=== PATIENT | male | born 1950 | race Caucasian/White ===

== ENCOUNTER 2018-06-18 17:54 | Emergency (ER) | payer MEDICARE, OTHER, SELFPAY ==
[2018-06-18 17:55] VITALS: BP 139/75; PULSE 54; RESP 16; TEMP 37.2; O2SAT 100; BMI 32.3
--- NOTE | 2018-06-18 18:37 | ED.VISSUMM ---
- ER Visit Summary Date of Service: 06/18/18 Chief Complaint: I do not want the flu . History of Present Illness: The patient is a 68 M who presents with symptoms that started 12 hours ago and include nasal congestion, mild frontal discomfort and mild cough. He denies fever, sore throat, myalgias arthralgias. He has no GI symptoms. He is a former smoker. 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 He has absolutely no other complaints. Physical Examination: Vital signs noted. Is afebrile. Is not hypoxic. Does not appear ill. HEENT exam is marked for mild nasal congestion. Otherwise the HEENT exam is unremarkable. Heart is regular without murmur, gallop or rub. Lungs are clear to auscultation. Is good move air bilaterally. Test Results: None were obtained Emergency Department Course and Treatment: Education Treatment Plan: Symptomatic Disposition: Discharged home with spouse Impression: Acute viral upper respiratory infection This note was generated with [employer] dictation software. It may contain incorrect words, spelling, and punctuation that were not noted in review of the chart prior to signing ED Disposition - Plan for ED Patient: Disposition: Home or Assisted Living Instructions: ED Upper Resp Infec No Abx Tx Referrals: Josse Abrams MD [Primary Care Provider] - 10-14 Days if not better
--- NOTE | 2018-06-18 18:40 | ED.DCSUM_ITS ---
- ER Visit Summary Date of Service: 06/18/18 Chief Complaint: I do not want the flu . History of Present Illness: The patient is a 68 M who presents with symptoms that started 12 hours ago and include nasal congestion, mild frontal discomfort and mild cough. He denies fever, sore throat, myalgias arthralgias. He has no GI symptoms. He is a former smoker. 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 He has absolutely no other complaints. Physical Examination: Vital signs noted. Is afebrile. Is not hypoxic. Does not appear ill. HEENT exam is marked for mild nasal congestion. Otherwise the HEENT exam is unremarkable. Heart is regular without murmur, gallop or rub. Lungs are clear to auscultation. Is good move air bilaterally. Test Results: None were obtained Emergency Department Course and Treatment: Education Treatment Plan: Symptomatic Disposition: Discharged home with spouse Impression: Acute viral upper respiratory infection This note was generated with [employer] dictation software. It may contain incorrect words, spelling, and punctuation that were not noted in review of the chart prior to signing ED Disposition - Plan for ED Patient: Disposition: Home or Assisted Living Instructions: ED Upper Resp Infec No Abx Tx Referrals: Josse Abrams MD [Primary Care Provider] - 10-14 Days if not better
== END 2018-06-18 18:55 | disposition home or self-care (01) ==
LOC: ED 18:48
PROVIDERS: Emergency Provider Emergency Medicine; Family Provider Family Medicine; PCP Family Medicine
DX: J06.9 Acute upper respiratory infection, unspecified (principal); Z87.891 Personal history of nicotine dependence; K74.60 Unspecified cirrhosis of liver
CPT/HCPCS: 99282

== ENCOUNTER 2018-10-17 13:45 | Emergency (ER) | payer MEDICARE, OTHER, SELFPAY ==
[2018-10-17 13:45] VITALS: BP 140/70; PULSE 56; RESP 16; TEMP 36.6; O2SAT 99; BMI 32.6
--- NOTE | 2018-10-17 14:09 | ED.DCSUM_ITS ---
- ER Visit Summary Date of Service: 10/17/18 Chief Complaint: Dysuria History of Present Illness: The patient is a 68 M who presents with dysuria that is been getting worse over the past 3 days. Patient states his urine has been cloudy and malodorous. Patient states he does have some burning with urination. Patient denies any fevers or chills. Patient denies any nausea or vomiting. Patient denies any back pain or flank pain. Patient states he does have a history of prior urinary tract infection and states this feels similar to that. Physical Examination: Vital signs are stable. Patient is afebrile. Patient is in no acute distress. Oral mucosa is pink and moist. Neck is supple. Trachea is midline. There is no JVD noted. Heart was regular rate and rhythm. Lungs are clear and equal bilaterally. Abdomen is soft. Bowel sounds are normal. There is no tenderness. There is no guarding. Cranial nerves II through XII are intact. There are no focal motor or sensory deficits noted. Test Results: Urinalysis was obtained. Leukocyte esterase was 500, occult blood with 50, white blood cell count was greater than 100, and there was 3+ bacteria. Emergency Department Course and Treatment: Patient states Cipro has worked well for him in the past. Patient was given a dose of Cipro here. Patient was given a prescription for Cipro. Patient was instructed to follow-up with his primary care physician in 5 to 7 days. Patient patient understood and was agreeable with the plan. All questions were answered. Disposition: Discharge home Impression: Urinary tract infection This note was generated with [employer] dictation software. It may contain incorrect words, spelling, and punctuation that were not noted in review of the chart prior to signing ED Disposition - Plan for ED Patient: Disposition: Home or Assisted Living Diagnosis: Urinary tract infection Instructions: Bladder Infection, Male (Adult) Prescriptions: Ciprofloxacin [Cipro] 500 mg PO BID #14 tab Prescription Printed Referrals: Josse Abrams MD [Primary Care Provider] - 5-7 Days
[2018-10-17 14:39] LABS: Mucous, Urine 0 SEEN /hpf (<or=2+); Red Blood Cells-Urine 0 SEEN /hpf (0-5)
[2018-10-17 14:41] LABS: Color, Urine Yellow (Yellow); Glucose, Dipstick Normal (Normal); Ketone-Dipstick Negative (Negative); Leukocyte Esterase-Dipstick 500 /ul (Negative); Nitrite-Dipstick Negative (Negative); Occult Blood-Urine 50 /ul (Negative); Protein-Dipstick 30 mg/dl (Negative); Urine Bilirubin Dipstick Negative (Negative); Urine Clarity Cloudy (Clear); Urine Urobilinogen Normal (Normal)
[2018-10-17 14:54] LABS: White Blood Cells >100 SEEN /hpf (0-5)
[2018-10-17 14:55] LABS: Bacteria 3+ /hpf (None Seen); Squamous Epithelial Cells - UA 0-5 SEEN /hpf (0-5)
[2018-10-17] MEDS: Ciprofloxacin 250 MG Tablet 500 MG PO (16:54)
[2018-10-17 16:56] VITALS: BP 147/73; PULSE 63; RESP 18; O2SAT 97
== END 2018-10-17 16:56 | disposition home or self-care (01) ==
PROVIDERS: Emergency Provider Emergency Medicine; Family Provider Family Medicine; PCP Family Medicine
DX: N39.0 Urinary tract infection, site not specified (principal); I25.10 Atherosclerotic heart disease of native coronary artery without angina pectoris; I10 Essential (primary) hypertension; E78.00 Pure hypercholesterolemia, unspecified; E11.9 Type 2 diabetes mellitus without complications; K21.9 Gastro-esophageal reflux disease without esophagitis
CPT/HCPCS: 81001; 99283

== ENCOUNTER → 2019-10-14 08:01 | Outpatient (CLI) | payer MEDICARE, OTHER, SELFPAY ==
--- NOTE | 2019-10-14 08:08 | US_ITS ---
STUDY: ABDOMINAL ULTRASOUND - RIGHT UPPER QUADRANT REASON FOR VISIT: Male, 69 years old cirrhosis elevated LFTs TECHNIQUE: Ultrasound evaluation of the right upper quadrant was performed with real-time and static alas-scale imaging. TECHNICAL QUALITY: Limited. Examination limited by bowel gas. COMPARISON: None. FINDINGS: Liver: The liver measures 11.7 cm. There is increased echogenicity consistent with fatty infiltration. The bile ducts are within normal limits. There is hepatic color flow. The direction of portal flow is hepatopetal. There is no demonstrated mass lesion. Gallbladder: Normal distended gallbladder. The gallbladder wall measures 2.8 mm. There is a negative sonographic Greenfield''s sign. There is no pericholecystic fluid. There are no gallstones. Common Bile Duct (C.B.D.): The common bile duct measures 2.4 mm. Pancreas: Normal size of the head, body and tail of the pancreas. There is normal echogenicity of the pancreas. There is no demonstrated pancreatic mass or cyst. Right Kidney: Normal size of the right kidney. The right kidney measures 9.9 x 4.5 x 5.0 cm. Normal renal cortex. The right cortex measures 1.3 cm. There is no demonstrated renal mass or cyst. There is mild hydronephrosis of the right kidney of uncertain etiology. US/Abdomen Limited IMPRESSION: Diffuse fatty infiltration of the liver, no discrete lesion Mild right hydronephrosis of uncertain etiology. No demonstrated obstructing stone or mass. Electronically Signed: Myron Cruz MD at 9:09 EDT , Service support ,
[2019-10-14 08:39] LABS: Absolute Lymphocyte Count 0.69 X10^3/uL (0.83-4.51); Absolute Neutrophil Count 1.5 X10^3/uL (2.0-7.7); Basophil# 0.03 X10^3/uL; Basophil% 1.1 % (0-1); Eosinophil# 0.18 X10^3/uL; Eosinophils% 6.7 % (0-5); Hemoglobin 7.5 g/dL (13.0-16.5); Lymphocyte # 0.69 X10^3/ul (4.0); Lymphocyte % 25.8 % (19-41); Mean Corp Hgb Conc 27.8 g/dL (32-36); Mean Corpuscular Hgb 18.3 pg (27.0-32.0); Monocyte# 0.27 X10^3/uL; Monocyte% 10.1 % (0-10); NRBC Flagged by Analyzer 0 % (0-5); Neutrophil # 1.49 X10^3/uL (2.7-7.7); Neutrophil % 55.9 % (47-70); POSITIVE COUNT YES; POSITIVE MORPHOLOGY YES; RBC Distribution Width CV 21.8 % (11.6-14.6); RBC Distribution Width SD 49.8 fl (35.1-43.9); Red Blood Count 4.09 M/mm3 (4.6-6.2); White Blood Count 2.7 K/mm3 (4.4-11.0)
[2019-10-14 08:58] LABS: AST(SGOT) 51 U/L (15-37); Alanine Aminotransfer ALT/SGPT 36 U/L (16-61); Albumin, Serum 2.8 g/dL (3.2-5.0); Alkaline Phosphatase 95 U/L (45-117); Anion Gap 7 (5-15); BUN 14 mg/dL (7-18); BUN/Creat Ratio 12.7 RATIO (10-20); Bilirubin, Direct 0.71 mg/dL (0.00-0.30); Calcium,Total 8.3 mg/dL (8.5-10.1); Chloride 102 mmol/L (98-107); Differential Indicated SCAN CRITERIA MET; EST Glomerular Filtration Rate 71 mL/min (>60); Est Glom Filt Rate - Afr Amer 85 mL/min (>60); Glucose 114 mg/dL (74-106); Potassium 4.2 mmol/L (3.5-5.1); Protein, Total 5.8 g/dL (6.4-8.2); Sodium Level 134 mmol/L (136-145)
[2019-10-14 09:01] LABS: International Normalized Ratio 1.5; Prothrombin Time (Protime)PT. 17.7 SECONDS (11.7-14.9)
[2019-10-14 09:09] LABS: Platelet Count 47 K/mm3 (150-450)
[2019-10-14 09:30] LABS: Anisocytosis 3+; Hypochromasia 3+; Ovalocyte 1+; Platelet Estimate MOD DEC (ADEQ)
[2019-10-15 06:19] LABS: AFP, Tumor Marker 3.2 ng/mL (0.0-8.3)
[2019-10-15 12:52] LABS: Pathologist Review Reviewed
== END ==
PROVIDERS: PCP Family Medicine
DX: K70.30 Alcoholic cirrhosis of liver without ascites (principal)
CPT/HCPCS: 36415; 76705; 80048; 80076; 82105; 85025; 85610

== ENCOUNTER 2020-01-24 18:31 | Emergency (ER) | payer MEDICARE, OTHER, SELFPAY ==
[2020-01-24 18:32] VITALS: BP 124/67; PULSE 60; RESP 17; TEMP 36.4; O2SAT 100; BMI 23.1
--- NOTE | 2020-01-24 18:59 | ED.VIS.GEN ---
History of Present Illness Chief Complaint: Confusion Informant: Patient Onset: Yesterday Context: Sudden Onset Timing: Continuous Quality: Confusion and slow mentation per Location: Not applicable Current Severity: Mild Maximum Severity: Mild Worsened by: Nothing Relieved by: Nothing Associated Symptoms: No associated symptoms Prior similar symptoms: No Recent Illness/Hospitalization: No - Past Medical History (1) Liver cirrhosis Status: Chronic (2) Thrombocytopenia Status: Chronic Past Medical History - Allergies and Home Meds Allergies/Adverse Reactions: Allergies mushroom Allergy (Verified 01/24/20 18:32) Unknown nabumetone [From Relafen] Allergy (Verified 01/24/20 18:32) Other naproxen [From Naprosyn] Allergy (Verified 01/24/20 18:32) Other Primary Care Physician: Josse Abrams MD [Primary Care Provider] - Prior records reviewed: Yes - Patient has history of cirrhosis Surgical History: noncontributory Lives: Spouse/ Significant Other Smoking Status: Former smoker Alcohol: None Drugs: None - Family History Maternal Family History: Reports: No pertinent history Paternal Family History: Reports: No pertinent history Review of Systems General: Denies: Chills, Fever, Sweats Eyes: Denies: Visual changes - bilaterally, Diplopia ENT: Denies: Rhinorrhea, Sore throat Cardiovascular: Denies: Chest pain, Palpitations Respiratory: Denies: Dyspnea, Cough, Dyspnea on exertion Gastrointestinal: Denies: Abdominal pain, Nausea, Vomiting, Diarrhea, Melena, Hematochezia Genitourinary: Denies: Dysuria, Hematuria, Frequency Musculoskeletal: Denies: Myalgias, Arthralgias, Neck pain, Back pain, Swelling, Extremity Pain Skin: Denies: Rash, Wounds Neurological: Denies: Headache, Weakness, Numbness Psych: Denies: Depression, Anxiety Hematologic: Denies: Easy bruising, Easy bleeding Allergy: Denies: Uticaria, Swelling of the mouth Physical Exam Vital Signs/Narrative: Vital Signs Temp Pulse Resp BP Pulse Ox 01/24/20 18:32 97.6 F L 60 17 124/67 H 100 Inital Vital Signs reviewed: Yes General: Well nourished, Well developed, No Acute Distress Head: Normocephalic, Atraumatic Eyes: Perrl, EOMI. Negative for: Pale conjunctiva, Scleral icterus ENT: No rhinorrhea, TM's clear Neck: Supple, Nontender Cardiovascular: Regular rate, Regular rhythm, No murmurs Respiratory: No distress, CTA bilaterally, Chest nontender Abdomen: Soft, Nontender, Nondistended, Normal bowel sounds Back: Nontender, Normal Inspection. Negative for: CVA tenderness Extremities: Nontender, No edema Skin: Normal color, No rash, No Trauma. Negative for: Cyanosis, Diaphoresis, Jaundice Neurological: Cranial nerves II-XII grossly intact, Normal Strength, Normal Sensation, Normal DTR, - - The the patient responded 2019. After 5 to 10 seconds he realized he answered incorrectly. It took him approximately 10 seconds to say January. He did know it was the third day of January.. Negative for: Alert, Oriented x3 Psychological: Normal affect Diagnostic/Tx/Re-eval Laboratory Results 01/24/20 01/24/20 01/24/20 19:05 19:05 19:05 WBC 4.1 L RBC 4.67 Hgb 9.8 L Hct 33.2 L MCV 71.1 L MCH 21.0 L MCHC 29.5 L RDW Std Deviation 74.9 H RDW Coeff of Maria R 29.4 H Plt Count 49 L* MPV Not Reportable Immature Gran % (Auto) 0.200 Neut % (Auto) 59.9 Lymph % (Auto) 25.2 Dixon % (Auto) 10.8 H Eos % (Auto) 2.9 Baso % (Auto) 1.0 Absolute Neuts (auto) 2.5 Absolute Lymphs (auto) 1.03 Nucleated RBC % 0 [address] Review May foll Anisocytosis 1+ Sodium 142 Potassium 3.1 L Chloride 104 Carbon Dioxide 30.0 Anion Gap 8 BUN 15 Creatinine 1.32 H Estim Creat Clear Calc 55.23 Est GFR (MDRD) Af Amer 69 Est GFR (MDRD) Non-Af 57 L BUN/Creatinine Ratio 11.4 Glucose 103 Lactic Acid 3.4 H* Calcium 8.8 Total Bilirubin 2.20 H Direct Bilirubin 1.05 H AST 75 H ALT 50 Alkaline Phosphatase 113 Ammonia Total Protein 6.5 Albumin 2.9 L Globulin 3.6 Urine Color Urine Clarity Urine pH Ur Specific [place] Urine Protein Urine Glucose (UA) Urine Ketones Urine Occult Blood Urine Nitrite Urine Bilirubin Urine Urobilinogen Ur Leukocyte Esterase Urine RBC Urine WBC Ur Squamous Epith Cells Urine Bacteria Hyaline Casts Urine Mucus 01/24/20 01/24/20 19:12 19:17 WBC RBC Hgb Hct MCV MCH MCHC RDW Std Deviation RDW Coeff of Maria R Plt Count MPV Immature Gran % (Auto) Neut % (Auto) Lymph % (Auto) Dixon % (Auto) Eos % (Auto) Baso % (Auto) Absolute Neuts (auto) Absolute Lymphs (auto) Nucleated RBC % Diff Path Review Anisocytosis Sodium Potassium Chloride Carbon Dioxide Anion Gap BUN Creatinine Estim Creat Clear Calc Est GFR (MDRD) Af Amer Est GFR (MDRD) Non-Af BUN/Creatinine Ratio Glucose Lactic Acid Calcium Total Bilirubin Direct Bilirubin AST ALT Alkaline Phosphatase Ammonia 70.0 H Total Protein Albumin Globulin Urine Color Yellow Urine Clarity Clear Urine pH 6.5 Ur Specific [place] 1.010 Urine Protein Negative Urine Glucose (UA) Normal Urine Ketones Negative Urine Occult Blood Negative Urine Nitrite Negative Urine Bilirubin Negative Urine Urobilinogen 1 H Ur Leukocyte Esterase Negative Urine RBC 0 SEEN Urine WBC 0 SEEN Ur Squamous Epith Cells 0 SEEN Urine Bacteria 0 SEEN Hyaline Casts 0-5 SEEN Urine Mucus 0 SEEN Bilirubin is elevated 2.20. Ammonia is greater than 2 times normal. He oriented x3. He is slow to answer but answers correctly. Plan is lactulose in the emergency department prescription for lactulose follow-up with Dr. Abrams and if his symptoms deteriorate return to hospital for admission. - Medical Decision Making Altered mental status history of enlarged prostate as well as history of cirrhosis need to rule out infectious etiology versus metabolic etiology. CBC, electrolyte panel, hepatic and ammonia level was obtained. Urine was obtained to rule out UTI. Since patient is not tachypneic and there are no abnormal auscultatory findings chest x-ray was not ordered. ED Disposition - Plan for ED Patient: Disposition: Home or Assisted Living Diagnosis: Encephalopathy, hepatic Instructions: Lactulose Oral solution [Encephalopathy] Prescriptions: Lactulose 10 gm PO [id number] #300 solution Transmission Status: Pending to [id number] Referrals: Josse Abrams MD [Primary Care Provider] - 3-5 Days Additional Instructions: If no improvement after 48 hours return to the emergency department
[2020-01-24 19:18] LABS: Absolute Lymphocyte Count 1.03 X10^3/uL (0.83-4.51); Absolute Neutrophil Count 2.5 X10^3/uL (2.0-7.7); Basophil# 0.04 X10^3/uL; Eosinophil# 0.12 X10^3/uL; Eosinophils% 2.9 % (0-5); Hematocrit 33.2 % (40-54); Hemoglobin 9.8 g/dL (13.0-16.5); Lymphocyte # 1.03 X10^3/ul (4.0); Lymphocyte % 25.2 % (19-41); Mean Corp Hgb Conc 29.5 g/dL (32-36); Mean Corpuscular Volume 71.1 fL (80-94); Monocyte# 0.44 X10^3/uL; Monocyte% 10.8 % (0-10); NRBC Flagged by Analyzer 0 % (0-5); Neutrophil # 2.45 X10^3/uL (2.7-7.7); Neutrophil % 59.9 % (47-70); POSITIVE COUNT YES; POSITIVE MORPHOLOGY YES; Platelet Count 49 K/mm3 (150-450); RBC Distribution Width CV 29.4 % (11.6-14.6); RBC Distribution Width SD 74.9 fl (35.1-43.9); Red Blood Count 4.67 M/mm3 (4.6-6.2); White Blood Count 4.1 K/mm3 (4.4-11.0)
[2020-01-24 19:20] LABS: Bacteria 0 SEEN /hpf (None Seen); Mucous, Urine 0 SEEN /hpf (<or=2+); Red Blood Cells-Urine 0 SEEN /hpf (0-5); Squamous Epithelial Cells - UA 0 SEEN /hpf (0-5); White Blood Cells 0 SEEN /hpf (0-5)
[2020-01-24 19:29] LABS: Color, Urine Yellow (Yellow); Glucose, Dipstick Normal (Normal); Ketone-Dipstick Negative (Negative); Leukocyte Esterase-Dipstick Negative /ul (Negative); Nitrite-Dipstick Negative (Negative); Occult Blood-Urine Negative /ul (Negative); Protein-Dipstick Negative (Negative); Urine Bilirubin Dipstick Negative (Negative); Urine Clarity Clear (Clear); Urine Urobilinogen 1 mg/dl (Normal); Urine pH 6.5 (5.0 - 8.0)
[2020-01-24 19:33] LABS: AST(SGOT) 75 U/L (15-37); Alanine Aminotransfer ALT/SGPT 50 U/L (16-61); Albumin, Serum 2.9 g/dL (3.2-5.0); Alkaline Phosphatase 113 U/L (45-117); Anion Gap 8 (5-15); BUN 15 mg/dL (7-18); BUN/Creat Ratio 11.4 RATIO (10-20); Bilirubin, Direct 1.05 mg/dL (0.00-0.30); Calcium,Total 8.8 mg/dL (8.5-10.1); Chloride 104 mmol/L (98-107); Creatinine, Serum 1.32 mg/dL (0.70-1.30); EST Glomerular Filtration Rate 57 mL/min (>60); Est Glom Filt Rate - Afr Amer 69 mL/min (>60); Estimated Creatinine Clearance 55.23 ml/min; Globulin 3.6 g/dL (2.2-4.2); Glucose 103 mg/dL (74-106); Potassium 3.1 mmol/L (3.5-5.1); Protein, Total 6.5 g/dL (6.4-8.2); Sodium Level 142 mmol/L (136-145)
[2020-01-24 19:35] LABS: Hyaline Cast 0-5 SEEN /lpf (0-5)
[2020-01-24 19:36] LABS: Differential Indicated SCAN CRITERIA MET
[2020-01-24 19:41] LABS: Anisocytosis 1+
[2020-01-24 19:48] VITALS: BP 144/70; PULSE 60; RESP 14; O2SAT 100
[2020-01-24 20:00] LABS: Lactic Acid 3.4 mmol/L (0.4-1.9)
[2020-01-24] MEDS: Lactulose 20 GM/30 ML UDC PO (20:45)
[2020-01-24 20:46] VITALS: BP 157/71; PULSE 62; RESP 14; O2SAT 100
[2020-01-24 23:13] LABS: Reflex Lactate? Y
[2020-01-26 12:16] LABS: Pathologist Review Reviewed
== END 2020-01-24 21:17 | disposition home or self-care (01) ==
PROVIDERS: Emergency Provider Emergency Medicine; PCP Family Medicine
DX: K72.90 Hepatic failure, unspecified without coma (principal); Z79.82 Long term (current) use of aspirin; Z87.891 Personal history of nicotine dependence
CPT/HCPCS: 80048; 80076; 81001; 82140; 83605; 85025; 99284; A4216

== ENCOUNTER 2020-01-30 09:53 | Emergency (ER) | payer MEDICARE, OTHER, SELFPAY ==
[2020-01-30 09:54] VITALS: BP 150/79; PULSE 54; RESP 18; TEMP 36.3; O2SAT 100; BMI 28.5
--- NOTE | 2020-01-30 10:12 | EKG12_ITS ---
Test Reason : MENTAL CHANGE Blood Pressure : / mmHG Vent. Rate : 054 BPM Atrial Rate : 054 BPM P-R Int : 172 ms QRS Dur : 084 ms QT Int : 510 ms P-R-T Axes : -21 -08 067 degrees QTc Int : 483 ms Sinus bradycardia Minimal voltage criteria for LVH, may be normal variant Prolonged QT Abnormal ECG Confirmed by CAROLINA STACK, SPENCER ([id number]), market editor EV ZARCO ([id number]) on 02/04/2020 11:06:51 AM Referred By: EDGAR Confirmed By:HANNAH FIGUEROA MD
--- NOTE | 2020-01-30 10:16 | ED.DCSUM_ITS ---
History of Present Illness Informant: Patient, Family Narrative: 69-year-old male past medical history of cirrhosis, pre-diabetes, aortic valve replacement presents for altered mental status. He was hospitalized 1 week ago and found to have elevated ammonia which improved after taking lactulose x5 days. He saw his agricultural technician yesterday he states he was doing better and prescribed lactulose to continue which he has not picked up yet. states the patient seems more confused since last night. Last night he forgot to grab paper towels after washing his hands and seemed confused. This morning when she went to check his blood sugar, he tried to put the lancet in his ear. No focal neurological symptoms. Denies fevers, chills, nausea, vomiting, chest pain, shortness of breath, cough, abdominal pain, diarrhea, blood in stool, or urinary symptoms. <Linnette Huizar - Last Filed: 01/30/20 12:15> <Moe Krueger - Last Filed: 01/30/20 12:23> Chief Complaint: Mental Status Change Past Medical History Past Medical History: - - cirrhosis, aortic valve replacement, pre-diabetes Surgical History: noncontributory Smoking Status: Former smoker - Family History Maternal Family History: Reports: No pertinent history Paternal Family History: Reports: No pertinent history <Linnette Huizar - Last Filed: 01/30/20 12:15> <Moe Krueger - Last Filed: 01/30/20 12:23> - Allergies and Home Meds Allergies/Adverse Reactions: Allergies mushroom Allergy (Verified 01/30/20 09:54) Unknown nabumetone [From Relafen] Allergy (Verified 01/30/20 09:54) Other naproxen [From Naprosyn] Allergy (Verified 01/30/20 09:54) Other Primary Care Physician: Josse Abrams MD [Primary Care Provider] - Review of Systems General: Denies: Chills, Fever, Sweats Eyes: Denies: Visual changes - bilaterally, Diplopia ENT: Denies: Rhinorrhea, Sore throat Cardiovascular: Denies: Chest pain, Palpitations Respiratory: Denies: Dyspnea, Cough, Dyspnea on exertion Gastrointestinal: Denies: Abdominal pain, Nausea, Vomiting, Diarrhea, Melena, Hematochezia Genitourinary: Denies: Dysuria, Hematuria, Frequency Musculoskeletal: Denies: Back pain, Extremity Pain Skin: Denies: Rash, Wounds Neurological: Denies: Headache, Weakness, Numbness <Linnette Huizar - Last Filed: 01/30/20 12:15> Physical Exam Vital Signs/Narrative: Vital Signs Temp Pulse Resp BP Pulse Ox 01/30/20 09:54 97.3 F L 54 L 18 150/79 H 100 Inital Vital Signs reviewed: Yes General: Well nourished, Well developed, No Acute Distress Head: Normocephalic, Atraumatic Eyes: Perrl, EOMI ENT: Moist mucous membranes, No rhinorrhea Neck: Supple, Nontender Cardiovascular: Regular rate, Regular rhythm, No murmurs Respiratory: No distress, CTA bilaterally, Chest nontender Abdomen: Soft, Nontender, Nondistended, Normal bowel sounds Back: Nontender, Normal Inspection Extremities: No edema Skin: Normal color, No rash Neurological: Alert, Oriented x3, Cranial nerves II-XII grossly intact, Normal Strength, Normal Sensation, - - slow to respond, AOx4 Psychological: Normal affect, Normal Mood <Linnette Huizar - Last Filed: 01/30/20 12:15> Vital Signs/Narrative: Vital Signs Temp Pulse Resp BP Pulse Ox 01/30/20 09:54 97.3 F L 54 L 18 150/79 H 100 <Moe Krueger - Last Filed: 01/30/20 12:23> Diagnostic/Tx/Re-eval Laboratory Data 01/30/20 01/30/20 01/30/20 10:20 10:20 10:45 WBC 3.6 L RBC 5.00 Hgb 10.9 L Hct 35.7 L MCV 71.4 L MCH 21.8 L MCHC 30.5 L RDW Std Deviation 73.5 H RDW Coeff of Maria R 30.7 H Plt Count 43 L* Immature Gran % (Auto) 0.000 Neut % (Auto) 50.3 Lymph % (Auto) 33.0 Cameron % (Auto) 12.0 H Eos % (Auto) 3.9 Baso % (Auto) 0.8 Absolute Neuts (auto) 1.8 L Absolute Lymphs (auto) 1.18 Nucleated RBC % 0 Diff Path Review May foll Platelet Estimate MKD DEC Anisocytosis 2+ Sodium 138 Potassium 3.4 L Chloride 99 Carbon Dioxide 30.0 Anion Gap 9 BUN 30 H Creatinine 1.91 H Estim Creat Clear Calc 38.22 Est GFR (MDRD) Af Amer 45 L Est GFR (MDRD) Non-Af 37 L BUN/Creatinine Ratio 15.7 Glucose 119 H Calcium 9.3 Total Bilirubin 2.90 H AST 64 H ALT 43 Alkaline Phosphatase 102 Ammonia Total Protein 6.3 L Albumin 2.8 L Globulin 3.5 Albumin/Globulin Ratio 0.8 L Urine Color Yellow Urine Clarity Clear Urine pH 6.5 Ur Specific [place] 1.010 Urine Protein Negative Urine Glucose (UA) Normal Urine Ketones Negative Urine Occult Blood Negative Urine Nitrite Negative Urine Bilirubin Negative Urine Urobilinogen 1 H Ur Leukocyte Esterase Negative Urine RBC 0 SEEN Urine WBC 0 SEEN Ur Squamous Epith Cells 0-5 SEEN Urine Bacteria 0 SEEN Urine Mucus 0 SEEN 01/30/20 10:45 WBC RBC Hgb Hct MCV MCH MCHC RDW Std Deviation RDW Coeff of Maria R Plt Count Immature Gran % (Auto) Neut % (Auto) Lymph % (Auto) [place] % (Auto) Eos % (Auto) Baso % (Auto) Absolute Neuts (auto) Absolute Lymphs (auto) Nucleated RBC % Diff Path Review Platelet Estimate Anisocytosis Sodium Potassium Chloride Carbon Dioxide Anion Gap BUN Creatinine Estim Creat Clear Calc Est GFR (MDRD) Af Amer Est GFR (MDRD) Non-Af BUN/Creatinine Ratio Glucose Calcium Total Bilirubin AST ALT Alkaline Phosphatase Ammonia 81.0 H Total Protein Albumin Globulin Albumin/Globulin Ratio Urine Color Urine Clarity Urine pH Ur Specific [place] Urine Protein Urine Glucose (UA) Urine Ketones Urine Occult Blood Urine Nitrite Urine Bilirubin Urine Urobilinogen Ur Leukocyte Esterase Urine RBC Urine WBC Ur Squamous Epith Cells Urine Bacteria Urine Mucus - Medical Decision Making Patient with past medical history of cirrhosis presented with concern for alter ed mental status since last night. He appears well nontoxic. Vital signs within normal limits. He is slow to respond but is AO x4 with a normal neurological exam. No concern for stroke. Labs show elevated ammonia of 81 which is up from 70 last week. He has baseline leukopenia and thrombocytopenia. Urinalysis negative for infection. No other acute abnormalities. Patient is refusing admission and states she is comfortable taking him home and they will pickle pumper the Lactulose from the pharmacy. My attending called the pharmacy to confirm that it is ready and it is lactulose 10 g 3 times daily. He needs to double the dose until he starts getting diarrhea and then go back to taking it as prescribed. Discussed return precautions. He should also follow-up with his agricultural technician. He was agreeable with this plan and discharged home in stable condition. <Linnette Huizar - Last Filed: 01/30/20 12:15> - Medical Decision Making I supervised the PA and have performed my own pertinent history and physical. Results and treatment plan were discussed. HPI: Patient has a history of cirrhosis. He was seen in the emergency departmen t approximately a week ago was placed on lactulose for the first time. He reports that he improved from this. He saw his agricultural technician yesterday and they called and and asked him to continue the lactulose. reports has been more confused since yesterday. Patient denies any other complaints. PE: Vitals: Stable. Afebrile. General: Well-nourished and well-developed. Head: Normocephalic atraumatic. Neck: Supple, no lymphadenopathy. No JVD. Nontender. Cardiovascular: Regular rate and rhythm. No murmurs. Respiratory: No respiratory distress. Clear to auscultation bilaterally. Abdominal: Soft, nontender, nondistended, normal bowel sounds. No guarding, rebound, or peritoneal signs. Back: Nontender. Extremities: Nontender, no edema. Skin: Mild jaundice, no rash. Neurologic: Alert and oriented ?3. Cranial nerves II through XII are intact. Normal strength and sensation. Slow to respond. Psych: Normal affect. Emergency Department course: Patient's last ammonia level was 70. Today it is 81. I discussed with the admitting him to the hospital to start the lactulose. She states that he will not do this and she is fine taking him home. He is unsure when his last bowel movement was and has not been taking enough lactulose to give him diarrhea. Treatment Plan: Patient will be discharged instructions to double his lactulose until he starts to get diarrhea and then back off to his normal dose. Follow-up with his primary care physician in 1 to 2 days if not improving. Return to emergency department for any worsening symptoms. This note was generated with [employer] software. It may contain incorrect words, spelling, and punctuation that were not noted in review of the chart prior to signing. <Moe Krueger - Last Filed: 01/30/20 12:23> ED Disposition <Linnette Huizar - Last Filed: 01/30/20 12:15> <Moe Krueger - Last Filed: 01/30/20 12:23> - Plan for ED Patient: Disposition: Home or Assisted Living Diagnosis: Hepatic encephalopathy Instructions: ED Confusion Referrals: Josse Abrams MD [Primary Care Provider] -
[2020-01-30 10:30] LABS: Absolute Lymphocyte Count 1.18 X10^3/uL (0.83-4.51); Absolute Neutrophil Count 1.8 X10^3/uL (2.0-7.7); Basophil# 0.03 X10^3/uL; Basophil% 0.8 % (0-1); Eosinophil# 0.14 X10^3/uL; Eosinophils% 3.9 % (0-5); Hematocrit 35.7 % (40-54); Hemoglobin 10.9 g/dL (13.0-16.5); Lymphocyte # 1.18 X10^3/ul (4.0); Mean Corp Hgb Conc 30.5 g/dL (32-36); Mean Corpuscular Hgb 21.8 pg (27.0-32.0); Mean Corpuscular Volume 71.4 fL (80-94); Monocyte# 0.43 X10^3/uL; NRBC Flagged by Analyzer 0 % (0-5); Neutrophil % 50.3 % (47-70); POSITIVE COUNT YES; POSITIVE MORPHOLOGY YES; Platelet Count 43 K/mm3 (150-450); RBC Distribution Width CV 30.7 % (11.6-14.6); RBC Distribution Width SD 73.5 fl (35.1-43.9); White Blood Count 3.6 K/mm3 (4.4-11.0)
[2020-01-30 10:31] LABS: Differential Indicated SCAN CRITERIA MET
[2020-01-30 10:49] LABS: ALB/GLOB Ratio 0.8 RATIO (0.9-2.4); AST(SGOT) 64 U/L (15-37); Alanine Aminotransfer ALT/SGPT 43 U/L (16-61); Albumin, Serum 2.8 g/dL (3.2-5.0); Alkaline Phosphatase 102 U/L (45-117); Anion Gap 9 (5-15); BUN 30 mg/dL (7-18); BUN/Creat Ratio 15.7 RATIO (10-20); Calcium,Total 9.3 mg/dL (8.5-10.1); Chloride 99 mmol/L (98-107); Creatinine, Serum 1.91 mg/dL (0.70-1.30); EST Glomerular Filtration Rate 37 mL/min (>60); Est Glom Filt Rate - Afr Amer 45 mL/min (>60); Estimated Creatinine Clearance 38.22 ml/min; Globulin 3.5 g/dL (2.2-4.2); Glucose 119 mg/dL (74-106); Potassium 3.4 mmol/L (3.5-5.1); Protein, Total 6.3 g/dL (6.4-8.2); Sodium Level 138 mmol/L (136-145)
[2020-01-30 10:53] LABS: Bacteria 0 SEEN /hpf (None Seen); Mucous, Urine 0 SEEN /hpf (<or=2+); Red Blood Cells-Urine 0 SEEN /hpf (0-5); White Blood Cells 0 SEEN /hpf (0-5)
[2020-01-30 10:56] LABS: Color, Urine Yellow (Yellow); Glucose, Dipstick Normal (Normal); Ketone-Dipstick Negative (Negative); Leukocyte Esterase-Dipstick Negative /ul (Negative); Nitrite-Dipstick Negative (Negative); Occult Blood-Urine Negative /ul (Negative); Protein-Dipstick Negative (Negative); Urine Bilirubin Dipstick Negative (Negative); Urine Clarity Clear (Clear); Urine Urobilinogen 1 mg/dl (Normal); Urine pH 6.5 (5.0 - 8.0)
[2020-01-30 11:01] LABS: Anisocytosis 2+; Platelet Estimate MKD DEC (ADEQ)
[2020-01-30 11:04] LABS: Squamous Epithelial Cells - UA 0-5 SEEN /hpf (0-5)
[2020-01-30 12:21] VITALS: BP 151/71; PULSE 54; RESP 16; O2SAT 100
[2020-02-02 11:57] LABS: Pathologist Review Reviewed
== END 2020-01-30 12:36 | disposition home or self-care (01) ==
PROVIDERS: Emergency Provider Physician Assistant; PCP Family Medicine
DX: K72.90 Hepatic failure, unspecified without coma (principal); Z95.2 Presence of prosthetic heart valve; Z79.82 Long term (current) use of aspirin
CPT/HCPCS: 80053; 81001; 82140; 85025; 93005; 99284; A4216

== ENCOUNTER 2020-04-17 11:12 | Emergency (ER) | payer MEDICARE, OTHER, SELFPAY ==
[2020-04-17 11:13] VITALS: BP 150/75; PULSE 92; RESP 16; TEMP 36.6; O2SAT 97; BMI 28.7
--- NOTE | 2020-04-17 11:40 | EKG12_ITS ---
Test Reason : Blood Pressure : / mmHG Vent. Rate : 057 BPM Atrial Rate : 057 BPM P-R Int : 192 ms QRS Dur : 098 ms QT Int : 460 ms P-R-T Axes : -20 -12 064 degrees QTc Int : 447 ms Sinus bradycardia with sinus arrhythmia Septal infarct , age undetermined Abnormal ECG Confirmed by CAROLINA STACK, SPENCER ([id number]), assignment editor EV ZARCO ([id number]) on 04/22/2020 10:10:07 AM Referred By: JESSICA Confirmed By:HANNAH FIGUEROA MD
--- NOTE | 2020-04-17 11:40 | RAD_ITS ---
STUDY: X-RAY CHEST REASON FOR EXAM: Male, 70 years old. Cough TECHNIQUE: Frontal view of the chest COMPARISON: 06/12/1715 FINDINGS: The lungs are clear. There are no pleural effusions. There is no pneumothorax. The heart is stable in size. Again noted are sternotomy wires. The patient is status post right shoulder arthroplasty. RAD/Chest 1 View (Portable) IMPRESSION: No acute thoracic pathology. Electronically Signed: Rodney Owen, at 12:51 EST Tel , Service support ,
--- NOTE | 2020-04-17 11:53 | CT_ITS ---
STUDY: CT BRAIN WITHOUT CONTRAST REASON FOR EXAM: Male, 70 years old. Altered mental status. Weakness. RADIATION DOSAGE (If Supplied By Facility): CTDIvol = ( 44.99 ) mGy, DLP = ( 779.24 ) mGycm TECHNIQUE: Transaxial CT imaging of the brain was performed without administration of intravenous contrast material. Individualized dose optimization techniques were used for this CT. COMPARISON: None. FINDINGS: There is no acute bleed or infarct. There are chronic ischemic and atrophic changes. The ventricles are normal in configuration. There is no hydrocephalus. The visualized paranasal sinuses are clear. The mastoid air cells are well aerated. There is no skull fracture. CT/Brain/Head without Contrast IMPRESSION: No acute intracranial abnormality. Chronic ischemic and atrophic changes. Electronically Signed: Rodney Owen, at 13:00 EST Tel , Service support ,
--- NOTE | 2020-04-17 12:09 | ED.DCSUM_ITS ---
History of Present Illness <Ashly Lam - Last Filed: 04/17/20 14:33> Informant: Patient Onset: Weeks - 2 weeks Context: Gradual Onset Timing: Continuous Quality: weakness Location: both legs Current Severity: Severe Maximum Severity: Severe Worsened by: walking Relieved by: nothing Associated Symptoms: dark urine Narrative: 70-year-old male with a past medical history of cirrhosis presents to the emergency department with generalized weakness. He has been generally more weak over the last 2 weeks. He saw his primary care physician who placed him on prednisone. He has not had any improvement. He states he feels so weak he is unable to get up and walk on his own. He does have a walker at home. He has not fallen. He denies any fevers chills coughing chest pain shortness of breath nausea vomiting or diarrhea. He does have some loose stool at baseline from his lactulose. He does state he is having more dark urine but denies dysuria or hematuria. He denies urinary retention. Prior similar symptoms: Yes Recent Illness/Hospitalization: No <Tyson Starks - Last Filed: 04/17/20 15:00> Chief Complaint: General Illness Past Medical History <Ashly Lam - Last Filed: 04/17/20 14:33> Prior records reviewed: Yes Past Medical History: - - Cirrhosis Surgical History: noncontributory Lives: With Family Smoking Status: Former smoker Alcohol: None Drugs: None - Family History Maternal Family History: Reports: No pertinent history Paternal Family History: Reports: No pertinent history <Tyson Starks - Last Filed: 04/17/20 15:00> - Allergies and Home Meds Allergies/Adverse Reactions: Allergies mushroom Allergy (Verified 04/17/20 11:13) Unknown nabumetone [From Relafen] Allergy (Verified 04/17/20 11:13) Other naproxen [From Naprosyn] Allergy (Verified 04/17/20 11:13) Other Primary Care Physician: Josse Abrams MD [Primary Care Provider] - Review of Systems All systems negative except as indicated General: Denies: Chills, Fever, Sweats Eyes: Denies: Visual changes - bilaterally, Diplopia ENT: Denies: Rhinorrhea, Sore throat Cardiovascular: Denies: Chest pain, Palpitations Respiratory: Denies: Dyspnea, Cough, Dyspnea on exertion Gastrointestinal: Denies: Abdominal pain, Nausea, Vomiting, Diarrhea, Melena, Hematochezia Genitourinary: Denies: Dysuria, Hematuria, Frequency Musculoskeletal: Denies: Back pain, Swelling, Extremity Pain Skin: Denies: Rash, Wounds Neurological: Denies: Headache, Weakness, Numbness <Tyson Starks - Last Filed: 04/17/20 15:00> Physical Exam Vital Signs/Narrative: Vital Signs Temp Pulse Resp BP Pulse Ox 04/17/20 14:10 62 16 142/68 H 100 04/17/20 11:13 97.8 F 92 16 150/75 H 97 <Ashly Lam - Last Filed: 04/17/20 14:33> Vital Signs/Narrative: Vital Signs Temp Pulse Resp BP Pulse Ox 04/17/20 11:13 97.8 F 92 16 150/75 H 97 Inital Vital Signs reviewed: Yes General: Well nourished, Well developed, No Acute Distress Head: Normocephalic, Atraumatic Eyes: Perrl, EOMI ENT: Moist mucous membranes, No rhinorrhea Neck: Supple, Nontender Cardiovascular: Regular rate, Regular rhythm, No murmurs Respiratory: No distress, CTA bilaterally, Chest nontender Abdomen: Soft, Nontender, Nondistended, Normal bowel sounds Back: Nontender, Normal Inspection Extremities: Nontender, Edema Skin: Normal color, No rash Neurological: Alert, Oriented x3, Cranial nerves II-XII grossly intact, Normal Strength, Normal Sensation Psychological: Normal affect, Normal Mood <Tyson Starks - Last Filed: 04/17/20 15:00> Diagnostic/Tx/Re-eval - Medical Decision Making She was seen with Tyson santiago with history and physical as above Presents with generalized whole body weakness has history of cirrhosis is generally been stable could not move around his home he could not be managed by family paramedics were called he was brought in, he is resting comfortably in the bed his vital signs are unremarkable he denies head neck chest or abdominal pain primarily lower extremity weakness left greater than right leg no trauma no fall no exposures to coronavirus head neck chest unremarkable the lungs are diminished heart tones are marked abdomen soft slight distended nontender he cannot raise the left leg off the bed he can raise the right leg off the bed he has some edema to both lower extremities that are not new he has no pain in his leg no pain the back and again no trauma, he does have a history of high ammonia level but he is awake alert answering questions he has been taking his medications there is no signs of hepatic encephalopathy given all the above he will undergo ED evaluation please see the chart in detail for results management plan <Ashly Lam - Last Filed: 04/17/20 14:33> Chest X-Ray - ED: 1 View, Read by ED Physician, Read by Radiologist, No Acute Disease - Rhythm Strip Rhythm Strip: Sinus Rhythm Ectopy: None - Medical Decision Making Laboratory work-up showed a significantly elevated AST at over 1000 which is increased from 259 twelve days ago. The rest of his labs are essentially unremarkable and at his baseline. His CT scan showed a 6 mm stone in the neck of the gallbladder. Patient remains pain-free. We did give him a dose of Zosyn. Patient and his family requested transfer to [facility]. Spoke with the transfer center. He will be sent to the ED for evaluation <Tyson Starks - Last Filed: 04/17/20 15:00> ED Disposition <Ashly Lam - Last Filed: 04/17/20 14:33> <Tyson Starks - Last Filed: 04/17/20 15:00> - Plan for ED Patient: Disposition: [facility] Diagnosis: Acute liver failure, Liver cirrhosis, Thrombocytopenia, Choledocholithiasis Referrals: Josse Abrams MD [Primary Care Provider] -
[2020-04-17 12:40] LABS: Absolute Lymphocyte Count 0.79 X10^3/uL (0.83-4.51); Absolute Neutrophil Count 8.3 X10^3/uL (2.0-7.7); Basophil# 0.02 X10^3/uL; Basophil% 0.2 % (0-1); Eosinophil# 0.17 X10^3/uL; Eosinophils% 1.6 % (0-5); Hematocrit 36.7 % (40-54); Hemoglobin 12.2 g/dL (13.0-16.5); Lymphocyte # 0.79 X10^3/ul (4.0); Lymphocyte % 7.5 % (19-41); Mean Corp Hgb Conc 33.2 g/dL (32-36); Mean Corpuscular Hgb 27.8 pg (27.0-32.0); Mean Corpuscular Volume 83.6 fL (80-94); Monocyte# 1.17 X10^3/uL; Monocyte% 11.1 % (0-10); NRBC Flagged by Analyzer 0 % (0-5); Neutrophil # 8.31 X10^3/uL (2.7-7.7); Neutrophil % 79.2 % (47-70); POSITIVE COUNT YES; Platelet Count 60 K/mm3 (150-450); RBC Distribution Width CV 19.1 % (11.6-14.6); Red Blood Count 4.39 M/mm3 (4.6-6.2); White Blood Count 10.5 K/mm3 (4.4-11.0)
[2020-04-17 12:53] LABS: International Normalized Ratio 1.4; Prothrombin Time (Protime)PT. 16.4 SECONDS (11.7-14.9)
[2020-04-17 13:11] LABS: AST(SGOT) 1062 U/L (15-37); Alanine Aminotransfer ALT/SGPT 493 U/L (16-61); Albumin, Serum 2.6 g/dL (3.2-5.0); Alkaline Phosphatase 98 U/L (45-117); Anion Gap 7 (5-15); BUN 44 mg/dL (7-18); BUN/Creat Ratio 25.6 RATIO (10-20); Bilirubin, Direct 1.32 mg/dL (0.00-0.30); Calcium,Total 8.9 mg/dL (8.5-10.1); Chloride 101 mmol/L (98-107); Creatinine, Serum 1.72 mg/dL (0.70-1.30); EST Glomerular Filtration Rate 42 mL/min (>60); Est Glom Filt Rate - Afr Amer 51 mL/min (>60); Estimated Creatinine Clearance 41.85 ml/min; Globulin 3.5 g/dL (2.2-4.2); Glucose 112 mg/dL (74-106); Potassium 3.9 mmol/L (3.5-5.1); Protein, Total 6.1 g/dL (6.4-8.2); Sodium Level 136 mmol/L (136-145)
[2020-04-17 13:28] LABS: Mucous, Urine 0 SEEN /hpf (<or=2+); Red Blood Cells-Urine 0 SEEN /hpf (0-5)
--- NOTE | 2020-04-17 13:29 | CT_ITS ---
STUDY: CT ABDOMEN AND PELVIS WITH CONTRAST REASON FOR EXAM: Male, 70 years old. Weakness RADIATION DOSAGE (If Supplied By Facility): CTDIvol = ( 18.74 ) mGy, DLP = ( 1155.43 ) mGycm TECHNIQUE: Transaxial images were obtained from the dome of the diaphragm to the symphysis pubis without oral contrast. 75 ml of ISOVUE-370 contrast was administered. Sagittal and coronal images were reconstructed. Individualized dose optimization techniques were used for this CT. COMPARISON: None. FINDINGS: There is atelectasis at the lung bases. There is a calcified granuloma in the right lower lobe. There is coronary artery and cardiac valvular calcifications noted. The patient is status post sternotomy. There is a 6 mm calcified gallstone in the gallbladder neck. The liver is nodular in contour, consistent with cirrhosis. There are no focal hepatic lesions identified. The spleen is large, measuring 15.6 cm in maximal dimension. There are varices noted in the left side of the abdomen. The pancreas is within normal limits. The adrenal glands are within normal limits. There are no renal or ureteral stones. There is no hydronephrosis. The urinary bladder diverticula noted. There are no focal renal lesions. Normal visualized stomach. There is no bowel obstruction or inflammation. The appendix is visualized and appears normal. The aorta is normal in caliber. There is periportal lymphadenopathy noted. There is no free air, free fluid or fluid collection. There are no destructive osseous lesions. CT/Abdomen/Pelvis W IV Cont ONLY IMPRESSION: 6 mm stone in the gallbladder neck. If indicated, further evaluation with ultrasound could be performed. Cirrhotic liver. No focal hepatic lesions identified. Portal lymphadenopathy which is likely reactive in nature. Signs of portal hypertension, including splenomegaly and varices. No bowel obstruction or inflammation. Normal appendix. No urinary calculi. No hydronephrosis. Urinary bladder diverticula. Electronically Signed: Rodney Owen, at 14:29 EST Tel , Service support ,
[2020-04-17 13:37] LABS: Color, Urine Amber (Yellow); Glucose, Dipstick Normal (Normal); Ketone-Dipstick 5 mg/dl (Negative); Leukocyte Esterase-Dipstick 25 /ul (Negative); Nitrite-Dipstick Negative (Negative); Occult Blood-Urine 250 /ul (Negative); Protein-Dipstick 100 mg/dl (Negative); Urine Bilirubin Dipstick Negative (Negative); Urine Clarity Clear (Clear); Urine Urobilinogen 1 mg/dl (Normal)
[2020-04-17 13:56] LABS: Bacteria 1+ /hpf (None Seen); Fine Granular Cast- Urine 0-5 SEEN /lpf (0-5); Squamous Epithelial Cells - UA 0-5 SEEN /hpf (0-5); White Blood Cells 0-5 SEEN /hpf (0-5)
[2020-04-17 14:10] VITALS: BP 142/68; PULSE 62; RESP 16; O2SAT 100
[2020-04-17 15:25] VITALS: BP 134/97; PULSE 68; RESP 17; O2SAT 99
[2020-04-17 16:04] VITALS: BP 140/72; PULSE 73; RESP 15; O2SAT 98
== END 2020-04-17 16:33 | disposition short-term general hospital (02) ==
PROVIDERS: Emergency Provider Physician Assistant Medical; PCP Family Medicine
DX: K72.00 Acute and subacute hepatic failure without coma (principal); K74.60 Unspecified cirrhosis of liver; D69.6 Thrombocytopenia, unspecified; K80.50 Calculus of bile duct without cholangitis or cholecystitis without obstruction
CPT/HCPCS: 70450; 71045; 74177; 80048; 80076; 81001; 82140; 85025; 85610; 87426; 93005; 96365; 99285; J7050; Q9967; A4216

== ENCOUNTER 2020-07-30 11:49 | Emergency (ER) | payer MEDICARE, OTHER, SELFPAY ==
[2020-07-30 11:50] VITALS: BP 157/95; PULSE 60; RESP 14; TEMP 36.6; O2SAT 96; BMI 29.0
--- NOTE | 2020-07-30 12:14 | ED.VIS.GEN ---
History of Present Illness Chief Complaint: Abn Labs Informant: Patient Onset: Today Quality: hypokalemia Associated Symptoms: denies Narrative: Patient has been diagnosed with hepatic cirrhosis, he does not know the reason, but states he is following with specialist at [facility] and being evaluated for liver transplant, they get labs on him weekly, and this morning he had his weekly routine labs obtained, they showed a potassium of 2.6 and as a result he received a phone call that told him to get to the nearest emergency department. He states he has not been feeling weak, he has been working on his property this morning, with no issues. He denies any new symptoms, muscle weakness, muscle spasms, or any other systemic symptom. He has been urinating normally. He is on torsemide and potassium supplementation and has been compliant with his medications. Before the torsemide was started he was on potassium, the increase the dose as a result of starting the torsemide. - Past Medical History (1) Liver cirrhosis Status: Chronic Past Medical History - Allergies and Home Meds Allergies/Adverse Reactions: Allergies mushroom Allergy (Verified 07/30/20 11:49) Unknown nabumetone [From Relafen] Allergy (Verified 07/30/20 11:49) Other naproxen [From Naprosyn] Allergy (Verified 07/30/20 11:49) Other Primary Care Physician: Josse Abrams MD [Primary Care Provider] - Doctors: Dr. Barragan Surgical History: noncontributory Lives: Spouse/ Significant Other Smoking Status: Former smoker - Family History Maternal Family History: Reports: No pertinent history Paternal Family History: Reports: No pertinent history Review of Systems General: Denies: Chills, Fever, Sweats Eyes: Denies: Visual changes - bilaterally, Diplopia ENT: Denies: Rhinorrhea, Sore throat Cardiovascular: Denies: Chest pain, Palpitations Respiratory: Denies: Dyspnea, Cough, Dyspnea on exertion Gastrointestinal: Reports: - - abd swelling. Denies: Abdominal pain, Nausea, Vomiting, Diarrhea, Melena, Hematochezia Genitourinary: Denies: Dysuria, Hematuria, Frequency Musculoskeletal: Reports: Swelling - BLE x 3 wks. Denies: Back pain, Extremity Pain Skin: Denies: Rash, Wounds Neurological: Denies: Headache, Weakness, Numbness Physical Exam Vital Signs/Narrative: Vital Signs Temp Pulse Resp BP Pulse Ox 04/09/21 11:50 98 F 60 14 157/95 H 96 Inital Vital Signs reviewed: Yes General: Well nourished, Well developed, No Acute Distress Head: Normocephalic, Atraumatic Eyes: Perrl, EOMI ENT: Moist mucous membranes, No rhinorrhea Neck: Supple, Nontender Cardiovascular: Regular rate, Regular rhythm, No murmurs Respiratory: No distress, CTA bilaterally, Chest nontender Abdomen: Soft, Nontender, Normal bowel sounds. Negative for: Nondistended - + distended, ?mild fluid wave Back: Nontender, Normal Inspection Extremities: Nontender, Edema - 2+ BLE, symmetric Skin: Normal color, No rash. Negative for: Jaundice Neurological: Alert, Oriented x3, Cranial nerves II-XII grossly intact, Normal Strength, Normal Sensation, Normal Gait Psychological: Normal affect, Normal Mood Diagnostic/Tx/Re-eval Laboratory Tests 07/30/20 07/30/20 Range/Units 12:10 12:10 WBC 4.7 (4.4-11.0) K/mm3 RBC 3.57 L (4.6-6.2) M/mm3 Hgb 10.8 L (13.0-16.5) g/dL Hct 32.6 L (40-54) % MCV 91.3 (80-94) fL MCH 30.3 (27.0-32.0) pg MCHC 33.1 (32-36) g/dL RDW Std Deviation 47.6 H (35.1-43.9) fl RDW Coeff of Maria R 14.1 (11.6-14.6) % Plt Count 80 L (150-450) K/mm3 MPV 11.7 (6.2-12.0) fl Immature Gran % (Auto) 0.200 (0.0-0.9) % Neut % (Auto) 64.0 (47-70) % Lymph % (Auto) 17.8 L (19-41) % Coryell % (Auto) 14.6 H (0-10) % Eos % (Auto) 2.8 (0-5) % Baso % (Auto) 0.6 (0-1) % Absolute Neuts (auto) 3.0 (2.0-7.7) X10^3/uL Absolute Lymphs (auto) 0.84 (0.83-4.51) X10^3/uL Nucleated RBC % 0 (0-5) % Sodium 137 (136-145) mmol/L Potassium 2.9 L (3.5-5.1) mmol/L Chloride 98 (98-107) mmol/L Carbon Dioxide 34.0 H (21.0-32.0) mmol/L Anion Gap 5 (5-15) BUN 14 (7-18) mg/dL Creatinine 1.61 H (0.70-1.30) mg/dL Estim Creat Clear Calc 44.71 ml/min Est GFR (MDRD) Af Amer 55 L (>60) mL/min Est GFR (MDRD) Non-Af 45 L (>60) mL/min BUN/Creatinine Ratio 8.7 L (10-20) RATIO Glucose 169 H (74-106) mg/dL Calcium 8.1 L (8.5-10.1) mg/dL - Medical Decision Making Potassium level here 2.9, he was given #2 10mEq potassium chloride bags over the course of an hour each in addition to oral potassium 40 mEq. Patient doing well. I discussed with one of the vertical roll operator covering for Dr. Barragan, Dr. Tam. He is aware of the patient and his hypokalemia, I discussed all results and treatment so far and he agrees with the patient going home since he is asymptomatic, and agrees with starting him on spironolactone 50 mg daily. It looks like he was supposed to be on it in the past, 25 mg daily but it is not on his medication list now. They will recheck labs next week, patient is comfortable with that plan. ED Disposition - Plan for ED Patient: Disposition: Home or Assisted Living Diagnosis: Hypokalemia due to excessive renal loss of potassium Instructions: ED Hypokalemia Prescriptions: Spironolactone 1 tablet PO DAILY #30 tablet Prescription Printed Referrals: Josse Abrams MD [Primary Care Provider] - Additional Instructions: You can get your labs repeated at your regularly scheduled time next week. Continue taking your potassium as previously prescribed. Make sure you take the new prescription.
[2020-07-30] MEDS: Potassium Chloride Oral Tablet 20 MEQ 40 MEQ PO (12:30)
[2020-07-30] MEDS: Potassium Chloride 10mEq/100mL 10 MEQ/100 ML IV.SOLN. 100 MEQ IV BOLUS ×2 (12:35→13:32)
[2020-07-30 12:36] LABS: Absolute Lymphocyte Count 0.84 X10^3/uL (0.83-4.51); Basophil# 0.03 X10^3/uL; Basophil% 0.6 % (0-1); Eosinophil# 0.13 X10^3/uL; Eosinophils% 2.8 % (0-5); Hematocrit 32.6 % (40-54); Hemoglobin 10.8 g/dL (13.0-16.5); Lymphocyte # 0.84 X10^3/ul (4.0); Lymphocyte % 17.8 % (19-41); Mean Corp Hgb Conc 33.1 g/dL (32-36); Mean Corpuscular Hgb 30.3 pg (27.0-32.0); Mean Corpuscular Volume 91.3 fL (80-94); Mean Platelet Vol. 11.7 fl (6.2-12.0); Monocyte# 0.69 X10^3/uL; Monocyte% 14.6 % (0-10); NRBC Flagged by Analyzer 0 % (0-5); Neutrophil # 3.02 X10^3/uL (2.7-7.7); POSITIVE COUNT YES; Platelet Count 80 K/mm3 (150-450); RBC Distribution Width CV 14.1 % (11.6-14.6); RBC Distribution Width SD 47.6 fl (35.1-43.9); Red Blood Count 3.57 M/mm3 (4.6-6.2); White Blood Count 4.7 K/mm3 (4.4-11.0)
[2020-07-30 12:47] LABS: Anion Gap 5 (5-15); BUN 14 mg/dL (7-18); BUN/Creat Ratio 8.7 RATIO (10-20); Calcium,Total 8.1 mg/dL (8.5-10.1); Chloride 98 mmol/L (98-107); Creatinine, Serum 1.61 mg/dL (0.70-1.30); EST Glomerular Filtration Rate 45 mL/min (>60); Est Glom Filt Rate - Afr Amer 55 mL/min (>60); Estimated Creatinine Clearance 44.71 ml/min; Glucose 169 mg/dL (74-106); Potassium 2.9 mmol/L (3.5-5.1); Sodium Level 137 mmol/L (136-145)
[2020-07-30 13:33] VITALS: BP 140/70; PULSE 55; RESP 18; O2SAT 100
[2020-07-30 14:20] VITALS: BP 134/72; PULSE 78; RESP 16; O2SAT 98
[2020-07-30 14:45] VITALS: BP 134/80; PULSE 78; RESP 16; TEMP 36.6; O2SAT 98
== END 2020-07-30 15:09 | disposition home or self-care (01) ==
PROVIDERS: Emergency Provider Emergency Medicine; PCP Family Medicine
DX: E87.6 Hypokalemia (principal); Z87.891 Personal history of nicotine dependence; K74.60 Unspecified cirrhosis of liver; Z88.6 Allergy status to analgesic agent
CPT/HCPCS: 80048; 85025; 96360; 96361; 99285; J7030; A4216

== ENCOUNTER → 2020-09-08 13:50 | Outpatient (CLI) | payer MEDICARE, OTHER, SELFPAY ==
[2020-09-08 15:36] LABS: Absolute Lymphocyte Count 0.84 X10^3/uL (0.83-4.51); Absolute Neutrophil Count 2.9 X10^3/uL (2.0-7.7); Basophil# 0.07 X10^3/uL; Basophil% 1.5 % (0-1); Eosinophil# 0.22 X10^3/uL; Eosinophils% 4.8 % (0-5); Hematocrit 35.6 % (40-54); Hemoglobin 11.8 g/dL (13.0-16.5); Lymphocyte # 0.84 X10^3/ul (0.83-4.51); Lymphocyte % 18.2 % (19-41); Mean Corp Hgb Conc 33.1 g/dL (32-36); Mean Corpuscular Hgb 28.2 pg (27.0-32.0); Mean Corpuscular Volume 85.2 fL (80-94); Mean Platelet Vol. 10.8 fl (6.2-12.0); NRBC Flagged by Analyzer 0 % (0-5); Neutrophil # 2.87 X10^3/uL (2.7-7.7); Neutrophil % 62.1 % (47-70); POSITIVE COUNT YES; Platelet Count 66 K/mm3 (150-450); RBC Distribution Width CV 13.2 % (11.6-14.6); RBC Distribution Width SD 41.1 fl (35.1-43.9); Red Blood Count 4.18 M/mm3 (4.6-6.2); White Blood Count 4.6 K/mm3 (4.4-11.0)
[2020-09-08 15:44] LABS: International Normalized Ratio 1.6; Prothrombin Time (Protime)PT. 18.4 SECONDS (11.7-14.9)
[2020-09-08 15:45] LABS: Partial Thromboplast Time 33.8 Seconds (24.1-36.2)
[2020-09-08 16:10] LABS: ALB/GLOB Ratio 0.6 RATIO (0.9-2.4); AST(SGOT) 60 U/L (15-37); Alanine Aminotransfer ALT/SGPT 35 U/L (16-61); Albumin, Serum 2.2 g/dL (3.2-5.0); Alkaline Phosphatase 161 U/L (45-117); Anion Gap 6 (5-15); BUN 12 mg/dL (7-18); BUN/Creat Ratio 8.2 RATIO (10-20); Bilirubin, Direct 1.28 mg/dL (0.00-0.30); Calcium,Total 8.3 mg/dL (8.5-10.1); Chloride 101 mmol/L (98-107); Creatinine, Serum 1.47 mg/dL (0.70-1.30); EST Glomerular Filtration Rate 50 mL/min (>60); Est Glom Filt Rate - Afr Amer 61 mL/min (>60); Globulin 3.6 g/dL (2.2-4.2); Glucose 79 mg/dL (74-106); Potassium 3.7 mmol/L (3.5-5.1); Protein, Total 5.8 g/dL (6.4-8.2); Sodium Level 136 mmol/L (136-145)
== END ==
PROVIDERS: PCP Family Medicine
DX: Z01.818 Encounter for other preprocedural examination (principal); K70.30 Alcoholic cirrhosis of liver without ascites
CPT/HCPCS: 36415; 80053; 82248; 85025; 85610; 85730

== ENCOUNTER 2020-09-17 08:12 | Outpatient (RCR) | payer MEDICARE, OTHER, SELFPAY ==
[2020-09-17 09:15] LABS: Anion Gap 5 (5-15); BUN 17 mg/dL (7-18); BUN/Creat Ratio 10.6 RATIO (10-20); Calcium,Total 8.2 mg/dL (8.5-10.1); Chloride 105 mmol/L (98-107); EST Glomerular Filtration Rate 46 mL/min (>60); Est Glom Filt Rate - Afr Amer 55 mL/min (>60); Glucose 187 mg/dL (74-106); Potassium 4.4 mmol/L (3.5-5.1); Sodium Level 139 mmol/L (136-145)
== END 2020-09-17 18:00 | disposition home or self-care (01) ==
LOC: LAB 08:12
PROVIDERS: PCP Family Medicine
DX: Z01.818 Encounter for other preprocedural examination (principal); K70.30 Alcoholic cirrhosis of liver without ascites
CPT/HCPCS: 36415; 80048

== ENCOUNTER 2020-10-06 11:49 | Emergency (ER) | payer MEDICARE, OTHER, SELFPAY ==
[2020-10-06 11:50] VITALS: BP 157/65; PULSE 65; RESP 17; TEMP 35.5; O2SAT 100; BMI 27.6
--- NOTE | 2020-10-06 12:14 | CT_ITS ---
STUDY: CT ABDOMEN AND PELVIS WITH CONTRAST REASON FOR EXAM: Male, 70 years old. Abdominal and pelvic pain. Patient has a history of cirrhosis. RADIATION DOSAGE (If Supplied By Facility): CTDIvol = ( 14.68 ) mGy, DLP = ( 1252.11 ) mGycm TECHNIQUE: Transaxial images were obtained from the dome of the diaphragm to the symphysis pubis with oral contrast. Oral and amp; IV Gastrografin and amp; 100mL Isovue-300 was administered. Sagittal and coronal images were reconstructed. Individualized dose optimization techniques were used for this CT. COMPARISON: Comparison is made with prior examination dated 04/17/2020. FINDINGS: Tiny right pleural effusion with minimal right basilar atelectasis. Prior CABG. Coronary artery calcification. Prior aortic valve replacement. There is a diffuse contour abnormality of the liver consistent with cirrhotic changes. There are multiple small gallstones. There is moderate splenomegaly. Normal pancreas. Very hepatic and perisplenic fluid (ascites. Normal bilateral adrenal glands. Normal right kidney. Normal left kidney. Normal visualized stomach. Normal small intestine. Normal colon. The appendix is visualized and appears normal. There is diffuse atherosclerotic calcification of the abdominal aorta and its major visceral branches, without a demonstrated aneurysm. Normal inferior vena cava. Normal retroperitoneum. There is evidence of a 2.3 cm x 2.2 cm diverticulum of the posterior right lateral aspect of the bladder. There is a small umbilical hernia containing fat and ascites.. There are degenerative changes of the visualized lumbar spine. CT/Abdomen/Pelvis WITH Contrast IMPRESSION: Findings in keeping with cirrhosis of the liver and diffuse ascites as described. Multiple small gallstones. Splenomegaly. Electronically Signed: Rene Bridges MD at 14:43 EDT , Service support ,
--- NOTE | 2020-10-06 12:15 | EKG12_ITS ---
Test Reason : Blood Pressure : / mmHG Vent. Rate : 063 BPM Atrial Rate : 063 BPM P-R Int : 200 ms QRS Dur : 088 ms QT Int : 480 ms P-R-T Axes : -21 003 068 degrees QTc Int : 491 ms Normal sinus rhythm Prolonged QT Abnormal ECG Confirmed by CAROLINA STACK, SPENCER ([id number]), health editor EV ZARCO ([id number]) on 10/08/2020 10:43:06 A M Referred By: LYUBOV Confirmed By:HANNAH FIGUEROA MD
--- NOTE | 2020-10-06 12:21 | ED.VIS.GI ---
HPI HPI - GI History of Present Illness Chief Complaint: Abd Pain Informant: patient Abdominal Pain/Flank Pain Onset: Today Context: Sudden Onset Timing: Continuous Quality: Aching Location: Diffuse Worsened by: Nothing Relieved by: Nothing Nausea/Vomiting/Emesis GI Symptom: Positive for Nausea and Vomiting Diarrhea/Melena/Hematochezia GI Symptom: Negative for Diarrhea, Melena and Hematochezia Associated Symptoms Associated Symptoms: Negative for Dysuria and Hematuria Narrative Narrative: Patient presents with abdominal pain that began today at 0 930, approximately 3 hours prior to arrival. Patient states his pain is diffuse across his abdomen. Patient states it started in the lower abdomen is now diffuse. Patient describes as aching. Patient states nothing makes it better nothing makes it worse. Patient admits to some nausea and vomiting. Patient denies any hematemesis or coffee-ground emesis. Patient admits to constipation but denies any diarrhea, melena, or hematochezia. Patient denies any dysuria or hematuria. PFSH PFSH Medical History Former smoker Home Medications aspirin 325 mg PO DAILY@0800 06/18/18 [History Last Taken Unknown] atorvastatin 80 mg PO QHS 06/18/18 [History Last Taken Unknown] finasteride 5 mg PO QODAY 06/18/18 [History Last Taken Unknown] furosemide 10 mg PO DAILY 06/18/18 [History Last Taken Unknown] metoprolol tartrate 25 mg PO Q12H 06/18/18 [History Last Taken Unknown] milk thistle 2,000 mg PO BID 06/18/18 [History Last Taken Unknown] multivitamin with folic acid [Thera] 1 tab PO DAILY 06/18/18 [History Last Taken Unknown] omeprazole 20 mg PO DAILY 06/18/18 [History Last Taken Unknown] potassium chloride 10 meq PO DAILY 06/18/18 [History Last Taken Unknown] spironolactone 25 mg PO DAILY 06/18/18 [History Last Taken Unknown] ferrous sulfate 324 mg PO DAILY 04/17/20 [History Last Taken Unknown] metformin 1,000 mg PO DAILY 04/17/20 [History Last Taken Unknown] triamterene 100 mg PO BID #60 capsule 07/30/20 [Rx Last Taken Unknown] Allergy/AdvReac Type Severity Reaction Status Date / Time mushroom Allergy Unknown Verified 10/06/20 11:52 nabumetone [From Relafen] Allergy Other Verified 10/06/20 11:52 naproxen [From Naprosyn] Allergy Other Verified 10/06/20 11:52 Surgical History (Updated 10/06/20 @ 12:31 by Hung Almaguer) Hx of aortic valve replacement Hx of CABG Hx of carpal tunnel repair Hx of shoulder surgery Social History Smoking Status: Former smoker ROS ROS ED Constitutional Constitutional ED: Denies chills or fever(s) Eyes Eyes: Denies blurry vision or change in vision ENT ENT ED: Denies rhinorrhea or sore throat Cardiovascular Cardiovascular: Denies chest pain or palpitations Respiratory/Chest Respiratory/Chest: Denies cough or dyspnea Gastrointestinal Gastrointestinal: Reports abdominal pain, constipation, nausea and vomiting Genitourinary Genitourinary ED: Denies dysuria or hematuria Musculoskeletal Musculoskeletal: Reports back pain; Denies neck pain Integumentary Denies abscess or rash Neurologic Neurologic: Denies headache(s) or weakness Allergic/Immunologic Allergic/Immunologic ED: Denies mouth swelling or urticaria EXAM Physical Exam Const Vital Signs: 10/06/20 11:50 10/06/20 13:09 10/06/20 15:31 Temperature 95.9 F L 97.9 F 97.6 F L Temperature Source Temporal Temporal Temporal Pulse Rate 65 65 68 Respiratory Rate 17 17 18 Blood Pressure 157/65 H 157/65 H 166/87 H Blood Pressure Mean 95 95 113 Pulse Ox 100 100 100 Oxygen Delivery Method Room Air Room Air Room Air Positive well nourished and well developed General Appearance ED: well developed HEENT Reports moist mucous membranes Neck supple and no JVD Resp normal respiratory effort and clear to auscultation bilaterally Cardio regular rate and regular rhythm Rhythm: other Other Details: There is a grade 3/6 systolic murmur at the lower left sternal border. GI Auscultation: hypoactive bowel sounds Palpation: soft, tender epigastric, LLQ, RLQ, LUQ, RUQ and periumbilical and hernia umbilical Neuro CN's II-XII intact bilaterally, moves all extremities and no sensory deficits noted Sensorium / Orientation: alert, oriented to person, oriented to place and oriented to time Motor Exam: strength 5/5 throughout Psych mental status grossly normal MDM MDM MDM Narrative Medical decision making narrative: Patient was given IV fluids, morphine, and Zofran. Patient had some improvement of his pain. CBC shows a hemoglobin of 12.1 and hematocrit 36.1. Platelets were slightly low at 81. Comprehensive metabolic profile showed a creatinine of 1.63. Total bilirubin was 2.7, AST was 68, and alk phos was 128. These are consistent with prior results. Lactate was elevated at 5.0. Lipase was normal. CT scan of the abdomen pelvis was obtained. There is cirrhosis of the liver and ascites noted. There is an umbilical hernia that contains fat and ascites. This was interpreted by the radiologist and reviewed by myself. Clinically, the hernia appears to contain bowel that is incarcerated and strangulated. I did attempt to reduce the hernia and was unable to. This is very tender on exam. Patient and family requested to be transferred to [facility] since he is a candidate for liver transplant for his cirrhosis. Case was discussed with the transfer line at [facility]. Patient was accepted to the service of Dr. Omayra Chapman. Patient will be transferred there. Patient and family understand and are agreeable with the plan. All questions were answered. Lab Data Attestation: I reviewed the patient's lab results. Labs: Laboratory Results - last 24 hr 10/06/20 10/06/20 10/06/20 12:15 12:15 13:00 WBC 5.6 RBC 4.31 L Hgb 12.1 L Hct 36.1 L MCV 83.8 MCH 28.1 MCHC 33.5 RDW Std Deviation 46.0 H RDW Coeff of Maria R 15.1 H Plt Count 81 L MPV 12.0 Immature Gran % (Auto) 0.200 Neut % (Auto) 80.7 H Lymph % (Auto) 10.9 L Cameron % (Auto) 5.5 Eos % (Auto) 2.0 Baso % (Auto) 0.7 Absolute Neuts (auto) 4.5 Absolute Lymphs (auto) 0.61 L Nucleated RBC % 0 Platelet Estimate MOD DEC Sodium 136 Potassium 3.5 Chloride 103 Carbon Dioxide 23.0 Anion Gap 10 BUN 15 Creatinine 1.63 H Estim Creat Clear Calc 44.16 Est GFR (MDRD) Af Amer 54 L Est GFR (MDRD) Non-Af 45 L BUN/Creatinine Ratio 9.2 L Glucose 159 H Lactic Acid 5.0 H* Calcium 8.4 L Total Bilirubin 2.70 H AST 68 H ALT 32 Alkaline Phosphatase 128 H Total Protein 6.1 L Albumin 2.5 L Globulin 3.6 Albumin/Globulin Ratio 0.7 L Lipase 286 Radiography Diagnostic Testing: Radiology Impression Abdomen/Pelvis CT 10/06/20 12:14 IMPRESSION: Findings in keeping with cirrhosis of the liver and diffuse ascites as described. Multiple small gallstones. Splenomegaly. Electronically Signed: Rene Bridges MD at 14:43 EDT , Service support , EKG Initial EKG: Attestation: I personally reviewed and interpreted this EKG as follows: Interpretation: Sinus Rhythm (63) and No Acute Injury Pattern Prior EKG tracings: available for review Prior: Unchanged (04/17/2020) Discharge Plan Triage Chief Complaint: Abd Pain ED Provider: Sb Temple Dx/Rx/DC Orders Clinical Impression: Strangulated umbilical hernia, Liver cirrhosis Prescriptions: No Action atorvastatin 80 MG tablet 80 mg PO QHS RF: 0 aspirin 325 MG tablet 325 mg PO DAILY@0800 RF: 0 milk thistle 500 MG capsule 2,000 mg PO BID RF: 0 spironolactone 25 MG tablet 25 mg PO DAILY RF: 0 omeprazole 20 MG capsule 20 mg PO DAILY RF: 0 furosemide 20 MG tablet 10 mg PO DAILY RF: 0 finasteride 5 MG tablet 5 mg PO QODAY RF: 0 potassium chloride 10 MEQ tablet 10 meq PO DAILY RF: 0 metoprolol tartrate 25 MG tablet 25 mg PO Q12H RF: 0 multivitamin with folic acid [Thera] 1 TABLET tablet 1 tab PO DAILY RF: 0 metformin 500 MG tablet extended release 24 hr 1,000 mg PO DAILY RF: 0 ferrous sulfate 324 MG tablet,delayed release (DR/EC) 324 mg PO DAILY RF: 0 triamterene 100 MG capsule 100 mg PO BID Qty: 60 RF: 0 Primary Care Provider: Josse Abrams Referrals: Josse Abrams MD [Primary Care Provider] - Disposition Disposition: Acute Care Hospital Discharge Location: [facility]
[2020-10-06 12:23] LABS: Absolute Lymphocyte Count 0.61 X10^3/uL (0.83-4.51); Absolute Neutrophil Count 4.5 X10^3/uL (2.0-7.7); Basophil# 0.04 X10^3/uL; Basophil% 0.7 % (0-1); Eosinophil# 0.11 X10^3/uL; Hematocrit 36.1 % (40-54); Hemoglobin 12.1 g/dL (13.0-16.5); Lymphocyte # 0.61 X10^3/ul (0.83-4.51); Lymphocyte % 10.9 % (19-41); Mean Corp Hgb Conc 33.5 g/dL (32-36); Mean Corpuscular Hgb 28.1 pg (27.0-32.0); Mean Corpuscular Volume 83.8 fL (80-94); Monocyte# 0.31 X10^3/uL; Monocyte% 5.5 % (0-10); NRBC Flagged by Analyzer 0 % (0-5); Neutrophil # 4.51 X10^3/uL (2.7-7.7); Neutrophil % 80.7 % (47-70); POSITIVE COUNT YES; Platelet Count 81 K/mm3 (150-450); RBC Distribution Width CV 15.1 % (11.6-14.6); Red Blood Count 4.31 M/mm3 (4.6-6.2); White Blood Count 5.6 K/mm3 (4.4-11.0)
[2020-10-06 12:25] LABS: Differential Indicated SCAN CRITERIA MET
[2020-10-06] MEDS: Ondansetron 4 MG/2 ML Vial IV (12:31)
[2020-10-06] MEDS: 0.9% Normal Saline 1,000 ML 1000 ML IV (12:31)
[2020-10-06] MEDS: Morphine 4 MG/ML Syringe IV (12:31)
[2020-10-06 12:45] LABS: ALB/GLOB Ratio 0.7 RATIO (0.9-2.4); AST(SGOT) 68 U/L (15-37); Alanine Aminotransfer ALT/SGPT 32 U/L (16-61); Albumin, Serum 2.5 g/dL (3.2-5.0); Alkaline Phosphatase 128 U/L (45-117); Anion Gap 10 (5-15); BUN 15 mg/dL (7-18); BUN/Creat Ratio 9.2 RATIO (10-20); Calcium,Total 8.4 mg/dL (8.5-10.1); Chloride 103 mmol/L (98-107); Creatinine, Serum 1.63 mg/dL (0.70-1.30); EST Glomerular Filtration Rate 45 mL/min (>60); Est Glom Filt Rate - Afr Amer 54 mL/min (>60); Estimated Creatinine Clearance 44.16 ml/min; Globulin 3.6 g/dL (2.2-4.2); Glucose 159 mg/dL (74-106); Lipase 286 U/L (73-393); Potassium 3.5 mmol/L (3.5-5.1); Protein, Total 6.1 g/dL (6.4-8.2); Sodium Level 136 mmol/L (136-145)
[2020-10-06 12:56] LABS: Platelet Estimate MOD DEC (ADEQ)
[2020-10-06 13:09] VITALS: BP 157/65; PULSE 65; RESP 17; TEMP 36.6; O2SAT 100
--- NOTE | 2020-10-06 15:27 | NURSING ---
CALLED [facility] FOR TRANSFER HAD CAT SCAN TRANSMIT CT
[2020-10-06 15:31] VITALS: BP 166/87; PULSE 68; RESP 18; TEMP 36.4; O2SAT 100
[2020-10-06] MEDS: HYDROmorphone 1 MG/ML Syringe IV (15:45)
--- NOTE | 2020-10-06 16:02 | NURSING ---
CALLED [facility], ETA IS 45 MIN TO [facility] ER
[2020-10-06 16:55] VITALS: BP 166/87; PULSE 68; RESP 18; TEMP 36.4; O2SAT 100
[2020-10-06 17:02] LABS: Reflex Lactate? Y
== END 2020-10-06 16:48 | disposition short-term general hospital (02) ==
PROVIDERS: Emergency Provider Emergency Medicine; PCP Family Medicine
DX: K42.0 Umbilical hernia with obstruction, without gangrene (principal); K74.60 Unspecified cirrhosis of liver; K59.00 Constipation, unspecified; K80.20 Calculus of gallbladder without cholecystitis without obstruction; Z79.1 Long term (current) use of non-steroidal anti-inflammatories (NSAID); Z79.82 Long term (current) use of aspirin; Z79.84 Long term (current) use of oral hypoglycemic drugs; Z87.891 Personal history of nicotine dependence
CPT/HCPCS: 74177; 80053; 83605; 83690; 85025; 93005; 99285; J7030; Q9967; A4216; J2405

== ENCOUNTER 2021-10-29 12:01 | Inpatient (IN) | payer MEDICARE, OTHER, SELFPAY ==
[2021-10-29] VITALS (7 sets, daily range): BP systolic 103–128; BP diastolic 61–68; PULSE 73–97; RESP 12–18; TEMP 36.8–37.9; O2SAT 98–100; BMI 27.5; BMI 27.2
--- NOTE | 2021-10-29 12:24 | RAD_ITS ---
EXAM: XR CHEST, 1 VIEW CLINICAL INDICATION: confusion TECHNIQUE: Frontal view of the chest. This report was created using [employer] report generation technology. COMPARISON: 04/17/2020 FINDINGS: LUNGS AND PLEURAL SPACES: Unremarkable. No consolidation or edema. No pneumothorax. No effusion. HEART: Unremarkable. Cardiac silhouette not enlarged. MEDIASTINUM: Central airways and mediastinal contour are unremarkable. BONES/JOINTS: Right shoulder prosthesis in place. Hardware is seen overlying the lower cervical spine. Median sternotomy wires are present. SOFT TISSUES: Unremarkable. RAD/Chest 1 View (Portable) IMPRESSION: No acute findings in the chest. Electronically Signed: Minh Eason MD at 13:24 EDT ,
--- NOTE | 2021-10-29 12:27 | EX.ED.DYSGE1 ---
HPI <MARTÍNEZ Shipman - Last Filed: 10/29/21 13:48> History of Present Illness Chief Complaint: Alt LOC Narrative Narrative: 71-year-old male with PMH of CKD, cirrhosis presents with altered mental status. Per his and son he has had fluctuating mental status over the last few weeks with good days and bad days. He usually is an early riser but states when she got up around 7 AM this morning he was still sleeping on the couch and had not come to bed. He had soiled himself with urine and stool. He slept until 10 AM and when he woke up he seemed more confused so they called the squad. Patient needed help to ambulate to the cot. He follows at [facility] for his cirrhosis and his numbers were getting better recently and he took himself off the transplant list 1 week ago. 1 month ago they did an MRI and found a liver lesion and are planning to repeat an MRI coming up. He takes Lasix and has not had any recent abdominal distention/ascites, abdominal pain, or lower extremity swelling. Family does not note any increased jaundice. He has not had to take lactulose for over a year. said he stopped because he already has chronic diarrhea. PFSH <MARTÍNEZ Shipman - Last Filed: 10/29/21 13:48> [facility] Medical History Former smoker Home Medications atorvastatin 80 mg tablet 80 mg PO QHS 06/18/18 [History Last Taken Unknown] finasteride 5 mg tablet 5 mg PO QODAY 06/18/18 [History Last Taken Unknown] furosemide 20 mg tablet 10 mg PO DAILY 06/18/18 [History Last Taken Unknown] metoprolol tartrate 25 mg tablet 25 mg PO Q12H 06/18/18 [History Last Taken Unknown] milk thistle 500 mg capsule 2,000 mg PO BID 06/18/18 [History Last Taken Unknown] multivitamin with folic acid 400 mcg tablet (Thera) 1 tab PO DAILY 06/18/18 [History Last Taken Unknown] omeprazole 20 mg capsule,delayed release 20 mg PO DAILY 06/18/18 [History Last Taken Unknown] potassium chloride 10 mEq tablet,extended release(part/cryst) 10 meq PO DAILY 06/18/18 [History Last Taken Unknown] spironolactone 25 mg tablet 25 mg PO DAILY 06/18/18 [History Last Taken Unknown] ferrous sulfate 324 mg (65 mg iron) tablet,delayed release 324 mg PO DAILY 04/17/20 [History Last Taken Unknown] metformin 500 mg tablet,extended release 24 hr 1,000 mg PO DAILY 04/17/20 [History Last Taken Unknown] triamterene 100 mg capsule 100 mg PO BID #60 CAPSULES 07/30/20 [Rx Last Taken Unknown] Allergy/AdvReac Type Severity Reaction Status Date / Time mushroom Allergy Unknown Verified 10/29/21 12:04 nabumetone [From Relafen] Allergy Other Verified 10/29/21 12:04 naproxen [From Naprosyn] Allergy Other Verified 10/29/21 12:04 Surgical History (Updated 10/06/20 @ 12:31 by Hung Almaguer) Hx of aortic valve replacement Hx of CABG Hx of carpal tunnel repair Hx of shoulder surgery Social History Smoking Status: Former smoker ROS <MARTÍNEZ Shipman - Last Filed: 10/29/21 13:48> ROS ED ROS Narrative Constitutional: Negative for fever, chills, malaise. Eyes: Negative for visual change. ENT: Negative for sore throat, ear pain, rhinorrhea. CVS: Negative for palpitations, chest pain, syncope. Respiratory: Negative for shortness of breath, cough, orthopnea. GI: Negative for abdominal pain, nausea, vomiting, diarrhea, constipation, melena, hematochezia. : Negative for dysuria, hematuria or frequency. Neuro: Negative for headache, motor/sensory dysfunction. Skin: Negative for rash, abscess, or wound. Musc: Negative for joint pain, swelling, trauma. Heme: Negative for easy bruising, bleeding, lymphadenopathy. EXAM <MARTÍNEZ Shipman - Last Filed: 10/29/21 13:48> Physical Exam Narrative Exam Narrative: CONST: Patient sitting in no acute distress. EYES: Normal inspection. ENT: Normal inspection, moist mucous membranes. NECK: Normal inspection. RESP: No respiratory distress, CTAB. CVS: Regular rate and rhythm, no murmur, no gallop. ABD: Soft and nontender, no guarding or rebound, nondistended, no ascites. SKIN: Slight jaundice, no rash, warm, dry, intact. EXTREMITIES: Normal appearance, no pedal edema. NEURO: Oriented to self. States he does not know the month or year, thought he was in [place], not sure why he is here. Pleasantly confused. Moving all extremities, normal strength, no asterixis. PSYCH: Normal affect. Const Vital Signs: 10/29/21 12:02 10/29/21 12:13 10/29/21 13:53 Temperature 99.6 F H 99.0 F 100.2 F H Temperature Source Temporal Oral Temporal Pulse Rate 97 73 Respiratory Rate 16 15 Blood Pressure 124/64 H 128/64 H Blood Pressure Mean 84 85 Pulse Ox 100 100 Oxygen Delivery Method Room Air Room Air <Dr. Paul Garcia MD - Last Filed: 10/29/21 13:57> Physical Exam Const Vital Signs: 10/29/21 12:02 10/29/21 12:13 10/29/21 13:53 Temperature 99.6 F H 99.0 F 100.2 F H Temperature Source Temporal Oral Temporal Pulse Rate 97 73 Respiratory Rate 16 15 Blood Pressure 124/64 H 128/64 H Blood Pressure Mean 84 85 Pulse Ox 100 100 Oxygen Delivery Method Room Air Room Air MDM <MARTÍNEZ Shipman - Last Filed: 10/29/21 13:48> [facility] Narrative Medical decision making narrative: Patient presents with fluctuating altered mental status in the last few weeks that was worse today. He appears well and nontoxic. Afebrile and vital signs within normal limits. He has moist mucous membranes, heart regular, lungs clear. Abdomen is soft and nontender with no ascites. No lower extremity swelling. Patient is disoriented and only knows his name. Family states he normally would be AO x3 at least. He has no focal neurological deficits. Lab work shows white count of 13.2, microcytic anemia at 10.8 within his baseline, platelets of 50 also within baseline. Creatinine is 1.96, normal electrolytes. Total bili of 2.7 and liver enzymes of 63/43 are unchanged. Ammonia is 42. INR WNL. UA is positive for UTI which is the likely source of his AMS. Urine was cultured and he was given Rocephin and will be admitted due to encephalopathy. Diagnoses 1. UTI 2. Altered mental status 3. History of cirrhosis 4. Chronic anemia 5. Chronic thrombocytopenia Lab Data Attestation: I reviewed the patient's lab results. Labs: Laboratory Results - last 24 hr 10/29/21 10/29/21 10/29/21 12:25 12:25 12:25 WBC 13.2 H RBC 3.91 L Hgb 10.8 L Hct 34.5 L MCV 88.2 MCH 27.6 MCHC 31.3 L RDW Std Deviation 44.2 H RDW Coeff of Maria R 13.6 Plt Count 50 L* MPV 13.4 H Immature Gran % (Auto) 0.500 Neut % (Auto) 92.4 H Lymph % (Auto) 1.4 L Clinton % (Auto) 5.4 Eos % (Auto) 0.1 Baso % (Auto) 0.2 Absolute Neuts (auto) 12.2 H Absolute Lymphs (auto) 0.19 L Nucleated RBC % 0 Differential Comment SCANNED Diff Path Review May foll Platelet Estimate MKD DEC PT INR Sodium 135 L Potassium 5.1 Chloride 103 Carbon Dioxide 24.0 Anion Gap 8 BUN 19 H Creatinine 1.96 H Estim Creat Clear Calc 36.21 Est GFR (MDRD) Af Amer 44 L Est GFR (MDRD) Non-Af 36 L BUN/Creatinine Ratio 9.7 L Glucose 162 H Calcium 8.6 Total Bilirubin 2.70 H Direct Bilirubin 0.84 H AST 64 H ALT 43 Alkaline Phosphatase 108 Ammonia 42.0 H Total Protein 5.9 L Albumin 2.9 L Globulin 3.0 Urine Color Urine Clarity Urine pH Ur Specific Sloan Urine Protein Urine Glucose (UA) Urine Ketones Urine Occult Blood Urine Nitrite Urine Bilirubin Urine Urobilinogen Ur Leukocyte Esterase Urine RBC Urine WBC Ur Squamous Epith Cells Urine Bacteria Urine Mucus 10/29/21 10/29/21 12:35 12:46 WBC RBC Hgb Hct MCV MCH MCHC RDW Std Deviation RDW Coeff of Maria R Plt Count MPV Immature Gran % (Auto) Neut % (Auto) Lymph % (Auto) Clinton % (Auto) Eos % (Auto) Baso % (Auto) Absolute Neuts (auto) Absolute Lymphs (auto) Nucleated RBC % Differential Comment Diff Path Review Platelet Estimate PT 18.6 H INR 1.6 Sodium Potassium Chloride Carbon Dioxide Anion Gap BUN Creatinine Estim Creat Clear Calc Est GFR (MDRD) Af Amer Est GFR (MDRD) Non-Af BUN/Creatinine Ratio Glucose Calcium Total Bilirubin Direct Bilirubin AST ALT Alkaline Phosphatase Ammonia Total Protein Albumin Globulin Urine Color Yellow Urine Clarity Clear Urine pH 7.0 Ur Specific Sloan 1.005 Urine Protein 30 H Urine Glucose (UA) Normal Urine Ketones Negative Urine Occult Blood 25 H Urine Nitrite Negative Urine Bilirubin Negative Urine Urobilinogen Normal Ur Leukocyte Esterase 500 H Urine RBC 0 SEEN Urine WBC >100 SEEN Ur Squamous Epith Cells 0-5 SEEN Urine Bacteria 3+ Urine Mucus 0 SEEN Radiography Chest X-Ray - ED: 1 View, Read by ED Physician, Read by Radiologist and Normal Diagnostic Testing: Clinical Impression(s) from Imaging Studies Chest X-Ray 10/29/21 12:24 IMPRESSION: No acute findings in the chest. Electronically Signed: Minh Eason MD at 13:24 EDT , ED attending interpretation shows normal heart size, no acute infiltrate, edema, or effusion. <Dr. Paul Garcia MD - Last Filed: 10/29/21 13:57> [facility] MDM Narrative Medical decision making narrative: Patient presents with fluctuating altered mental status in the last few weeks that was worse today. He appears well and nontoxic. Afebrile and vital signs within normal limits. He has moist mucous membranes, heart regular, lungs clear. Abdomen is soft and nontender with no ascites. No lower extremity swelling. Patient is disoriented and only knows his name. Family states he normally would be AO x3 at least. He has no focal neurological deficits. Lab work shows white count of 13.2, microcytic anemia at 10.8 within his baseline, platelets of 50 also within baseline. Creatinine is 1.96, normal electrolytes. Total bili of 2.7 and liver enzymes of 63/43 are unchanged. Ammonia is 42. INR WNL. UA is positive for UTI which is the likely source of his AMS. Urine was cultured and he was given Rocephin. Diagnoses 1. UTI 2. Altered mental status 3. History of cirrhosis 4. Chronic anemia 5. Chronic thrombocytopenia I have personally performed a face to face assessment of the patient and have reviewed the VIKASH Note. I performed a substantive portion of the visit including all aspects of the following. My mcdaniel findings include: History of waxing and waning alertness over the last 2 months. But he returns to baseline. However the last couple days he has been more tired. Today he is much more lethargic. He seems more confused again. He also had urinary and even some stool incontinence at home. He has felt febrile but they have not checked temperature. He is not complaining of pain. 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 He just recently took himself off the transplant list because he did not want to go through with that. I do not know his mental status at the time that he did this. Exam is consistent with mild lethargy. But he will wake up and talk to you. He feels tired. He denies pains. He does feel warm to me. His lungs sound clear. His saturations are normal. His heart rate is about 90. His abdomen is nontender. Medical Decison Making: There was suspicion of elevated ammonia. However, his ammonia level is not that elevated. He does have anemia and thrombocytopenia which is chronic going back many years and thought to be related to his liver disease. But his white count and normally runs 3-5 is now 13 so he has a fair elevation of his white count. Urine showed greater than 100 white cells with 3+ bacteria and 500 leukocyte Estrace on a clean urine sample. This is consistent with UTI. He will be treated for this. Due to his confusion and overall weakness he will need to come in the hospital. His does not feel that she can safely care for him at home in this condition. Hospitalist was spoken with. Lab Data Attestation: I reviewed the patient's lab results. Labs: Laboratory Results - last 24 hr 10/29/21 10/29/21 10/29/21 12:25 12:25 12:25 WBC 13.2 H RBC 3.91 L Hgb 10.8 L Hct 34.5 L MCV 88.2 MCH 27.6 MCHC 31.3 L RDW Std Deviation 44.2 H RDW Coeff of Maria R 13.6 Plt Count 50 L* MPV 13.4 H Immature Gran % (Auto) 0.500 Neut % (Auto) 92.4 H Lymph % (Auto) 1.4 L Clinton % (Auto) 5.4 Eos % (Auto) 0.1 Baso % (Auto) 0.2 Absolute Neuts (auto) 12.2 H Absolute Lymphs (auto) 0.19 L Nucleated RBC % 0 Differential Comment SCANNED Diff Path Review May foll Platelet Estimate MKD DEC PT INR Sodium 135 L Potassium 5.1 Chloride 103 Carbon Dioxide 24.0 Anion Gap 8 BUN 19 H Creatinine 1.96 H Estim Creat Clear Calc 36.21 Est GFR (MDRD) Af Amer 44 L Est GFR (MDRD) Non-Af 36 L BUN/Creatinine Ratio 9.7 L Glucose 162 H Calcium 8.6 Total Bilirubin 2.70 H Direct Bilirubin 0.84 H AST 64 H ALT 43 Alkaline Phosphatase 108 Ammonia 42.0 H Total Protein 5.9 L Albumin 2.9 L Globulin 3.0 Urine Color Urine Clarity Urine pH Ur Specific Sloan Urine Protein Urine Glucose (UA) Urine Ketones Urine Occult Blood Urine Nitrite Urine Bilirubin Urine Urobilinogen Ur Leukocyte Esterase Urine RBC Urine WBC Ur Squamous Epith Cells Urine Bacteria Urine Mucus 10/29/21 10/29/21 12:35 12:46 WBC RBC Hgb Hct MCV MCH MCHC RDW Std Deviation RDW Coeff of Maria R Plt Count MPV Immature Gran % (Auto) Neut % (Auto) Lymph % (Auto) Clinton % (Auto) Eos % (Auto) Baso % (Auto) Absolute Neuts (auto) Absolute Lymphs (auto) Nucleated RBC % Differential Comment Diff Path Review Platelet Estimate PT 18.6 H INR 1.6 Sodium Potassium Chloride Carbon Dioxide Anion Gap BUN Creatinine Estim Creat Clear Calc Est GFR (MDRD) Af Amer Est GFR (MDRD) Non-Af BUN/Creatinine Ratio Glucose Calcium Total Bilirubin Direct Bilirubin AST ALT Alkaline Phosphatase Ammonia Total Protein Albumin Globulin Urine Color Yellow Urine Clarity Clear Urine pH 7.0 Ur Specific Sloan 1.005 Urine Protein 30 H Urine Glucose (UA) Normal Urine Ketones Negative Urine Occult Blood 25 H Urine Nitrite Negative Urine Bilirubin Negative Urine Urobilinogen Normal Ur Leukocyte Esterase 500 H Urine RBC 0 SEEN Urine WBC >100 SEEN Ur Squamous Epith Cells 0-5 SEEN Urine Bacteria 3+ Urine Mucus 0 SEEN Radiography Diagnostic Testing: Clinical Impression(s) from Imaging Studies Chest X-Ray 10/29/21 12:24 IMPRESSION: No acute findings in the chest. Electronically Signed: Minh Eason MD at 13:24 EDT , Discharge Plan Triage Chief Complaint: Alt LOC ED Midlevel Provider: Linnette Huizar ED Provider: Paul Garcia Dx/Rx/DC Orders Prescriptions: No Action atorvastatin 80 MG tablet 80 mg PO QHS milk thistle 500 MG capsule 2,000 mg PO BID spironolactone 25 MG tablet 25 mg PO DAILY omeprazole 20 MG capsule 20 mg PO DAILY furosemide 20 MG tablet 10 mg PO DAILY finasteride 5 MG tablet 5 mg PO QODAY potassium chloride 10 MEQ tablet 10 meq PO DAILY metoprolol tartrate 25 MG tablet 25 mg PO Q12H multivitamin with folic acid [Thera] 1 TABLET tablet 1 tab PO DAILY metformin 500 MG tablet extended release 24 hr 1,000 mg PO DAILY ferrous sulfate 324 MG tablet,delayed release (DR/EC) 324 mg PO DAILY triamterene 100 MG capsule 100 mg PO BID Qty: 60 0RF Primary Care Provider: Josse Abrams Referrals: Josse Abrams MD [Primary Care Provider] -
[2021-10-29 12:42] LABS: Mucous, Urine 0 SEEN /hpf (<or=2+); Red Blood Cells-Urine 0 SEEN /hpf (0-5)
[2021-10-29 12:47] LABS: Color, Urine Yellow (Yellow); Glucose, Dipstick Normal (Normal); Ketone-Dipstick Negative (Negative); Leukocyte Esterase-Dipstick 500 /ul (Negative); Nitrite-Dipstick Negative (Negative); Occult Blood-Urine 25 /ul (Negative); Protein-Dipstick 30 mg/dl (Negative); Specific Gravity, Urine 1.005 (1.002-1.030); Urine Bilirubin Dipstick Negative (Negative); Urine Clarity Clear (Clear); Urine Urobilinogen Normal (Normal)
[2021-10-29 12:50] LABS: Absolute Lymphocyte Count 0.19 X10^3/uL (0.83-4.51); Absolute Neutrophil Count 12.2 X10^3/uL (2.0-7.7); Basophil# 0.02 X10^3/uL; Basophil% 0.2 % (0-1); Eosinophil# 0.01 X10^3/uL; Eosinophils% 0.1 % (0-5); Hematocrit 34.5 % (40-54); Hemoglobin 10.8 g/dL (13.0-16.5); Lymphocyte # 0.19 X10^3/ul (0.83-4.51); Lymphocyte % 1.4 % (19-41); Mean Corp Hgb Conc 31.3 g/dL (32-36); Mean Corpuscular Hgb 27.6 pg (27.0-32.0); Mean Corpuscular Volume 88.2 fL (80-94); Mean Platelet Vol. 13.4 fl (6.2-12.0); Monocyte# 0.71 X10^3/uL; Monocyte% 5.4 % (0-10); NRBC Flagged by Analyzer 0 % (0-5); Neutrophil # 12.15 X10^3/uL (2.7-7.7); Neutrophil % 92.4 % (47-70); POSITIVE COUNT YES; POSITIVE DIFFERENTIAL YES; RBC Distribution Width CV 13.6 % (11.6-14.6); RBC Distribution Width SD 44.2 fl (35.1-43.9); Red Blood Count 3.91 M/mm3 (4.6-6.2); White Blood Count 13.2 K/mm3 (4.4-11.0)
[2021-10-29 12:54] LABS: Bacteria 3+ /hpf (None Seen); Squamous Epithelial Cells - UA 0-5 SEEN /hpf (0-5); White Blood Cells >100 SEEN /hpf (0-5)
[2021-10-29 12:56] LABS: Differential Indicated SCAN CRITERIA MET; Platelet Count 50 K/mm3 (150-450)
--- NOTE | 2021-10-29 12:56 | ED.RN ---
lab calls with platelet value of 50. aware
[2021-10-29 13:00] LABS: AST(SGOT) 64 U/L (15-37); Alanine Aminotransfer ALT/SGPT 43 U/L (16-61); Albumin, Serum 2.9 g/dL (3.2-5.0); Alkaline Phosphatase 108 U/L (45-117); Anion Gap 8 (5-15); BUN 19 mg/dL (7-18); BUN/Creat Ratio 9.7 RATIO (10-20); Bilirubin, Direct 0.84 mg/dL (0.00-0.30); Calcium,Total 8.6 mg/dL (8.5-10.1); Chloride 103 mmol/L (98-107); Creatinine, Serum 1.96 mg/dL (0.70-1.30); EST Glomerular Filtration Rate 36 mL/min (>60); Est Glom Filt Rate - Afr Amer 44 mL/min (>60); Estimated Creatinine Clearance 36.21 ml/min; Glucose 162 mg/dL (74-106); Potassium 5.1 mmol/L (3.5-5.1); Protein, Total 5.9 g/dL (6.4-8.2); Sodium Level 135 mmol/L (136-145)
[2021-10-29 13:03] LABS: International Normalized Ratio 1.6; Prothrombin Time (Protime)PT. 18.6 SECONDS (11.7-14.9)
[2021-10-29 13:19] LABS: Differential Comment SCANNED; Platelet Estimate MKD DEC (ADEQ)
[2021-10-29] MEDS: Ceftriaxone 1 GM/50 ML BAG IV (13:38)
--- NOTE | 2021-10-29 13:55 | NURSING ---
MED SURG OBS [place]OT[place] UTI, CONFUSION
[2021-10-29] MEDS: Acetaminophen 500 MG Tablet 1000 MG PO (14:01)
--- NOTE | 2021-10-29 14:09 | ED.RN ---
Waiting on lactic before deciding on fluids/sepsis alert per PA -- d/t known liver failure.
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
[2021-10-29] MEDS: 0.9% Normal Saline 1,000 ML 75 ML IV (15:30)
--- NOTE | 2021-10-29 15:43 | CASEMGMT ---
RENETTA SORIANO updated that hospitalist requesting palliative consult. RENETTA SORIANO emailed consult to [facility].
[2021-10-29] MEDS: Lactulose 20 GM/30 ML UDC PO ×2 (16:39→21:47)
[2021-10-29 17:00] LABS: Bedside Glucose 118 mg/dL (74-106)
[2021-10-29 17:47] LABS: Reflex Lactate? Y
[2021-10-29 18:55] LABS: Lactic Acid 2.9 mmol/L (0.4-1.9)
[2021-10-29] MEDS: Insulin Lispro 100 UNIT/ML INSULN.PEN SC (21:51)
[2021-10-29 22:30] LABS: Bedside Glucose 163 mg/dL (74-106)
[2021-10-30 02:47] VITALS: BP 124/59; PULSE 74; RESP 14; TEMP 37; O2SAT 97
[2021-10-30 05:23] LABS: Absolute Lymphocyte Count 0.19 X10^3/uL (0.83-4.51); Absolute Neutrophil Count 3.3 X10^3/uL (2.0-7.7); Basophil# 0.01 X10^3/uL; Basophil% 0.3 % (0-1); Eosinophil# 0.01 X10^3/uL; Eosinophils% 0.3 % (0-5); Hematocrit 25.6 % (40-54); Hemoglobin 8.2 g/dL (13.0-16.5); Lymphocyte # 0.19 X10^3/ul (0.83-4.51); Lymphocyte % 4.8 % (19-41); Mean Corpuscular Hgb 27.4 pg (27.0-32.0); Mean Corpuscular Volume 85.6 fL (80-94); Monocyte# 0.42 X10^3/uL; Monocyte% 10.7 % (0-10); NRBC Flagged by Analyzer 0 % (0-5); Neutrophil # 3.29 X10^3/uL (2.7-7.7); Neutrophil % 83.4 % (47-70); POSITIVE COUNT YES; POSITIVE DIFFERENTIAL YES; Platelet Count 32 K/mm3 (150-450); RBC Distribution Width CV 13.6 % (11.6-14.6); RBC Distribution Width SD 42.7 fl (35.1-43.9); Red Blood Count 2.99 M/mm3 (4.6-6.2); White Blood Count 3.9 K/mm3 (4.4-11.0)
[2021-10-30 05:26] LABS: Differential Indicated SCAN CRITERIA MET
[2021-10-30 05:48] LABS: ALB/GLOB Ratio 0.9 RATIO (0.9-2.4); AST(SGOT) 57 U/L (15-37); Alanine Aminotransfer ALT/SGPT 35 U/L (16-61); Albumin, Serum 2.1 g/dL (3.2-5.0); Alkaline Phosphatase 77 U/L (45-117); Anion Gap 6 (5-15); BUN 26 mg/dL (7-18); BUN/Creat Ratio 15.3 RATIO (10-20); Calcium,Total 7.9 mg/dL (8.5-10.1); Chloride 107 mmol/L (98-107); EST Glomerular Filtration Rate 43 mL/min (>60); Est Glom Filt Rate - Afr Amer 51 mL/min (>60); Estimated Creatinine Clearance 41.75 ml/min; Globulin 2.3 g/dL (2.2-4.2); Glucose 127 mg/dL (74-106); Potassium 4.2 mmol/L (3.5-5.1); Protein, Total 4.4 g/dL (6.4-8.2); Sodium Level 136 mmol/L (136-145)
[2021-10-30 06:02] LABS: Platelet Estimate MKD DEC (ADEQ)
[2021-10-30 06:45] LABS: Bedside Glucose 127 mg/dL (74-106)
[2021-10-30 08:33] VITALS: BP 116/66; PULSE 70; RESP 16; TEMP 37.1; O2SAT 99
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
[2021-10-30] MEDS: Ceftriaxone 1 GM/50 ML BAG IV (10:43)
[2021-10-30] MEDS: Lactulose 20 GM/30 ML UDC PO ×2 (10:44→21:11)
[2021-10-30] MEDS: Insulin Lispro 100 UNIT/ML INSULN.PEN SC ×2 (10:52→21:11)
[2021-10-30 11:46] LABS: Bedside Glucose 181 mg/dL (74-106)
[2021-10-30 14:47] VITALS: BP 138/71; PULSE 79; RESP 16; TEMP 37.3; O2SAT 97
[2021-10-30 16:46] LABS: Bedside Glucose 119 mg/dL (74-106)
[2021-10-30 20:06] VITALS: BP 130/60; PULSE 71; RESP 12; TEMP 36.9; O2SAT 99
[2021-10-30 21:51] LABS: Bedside Glucose 190 mg/dL (74-106)
[2021-10-31 02:10] VITALS: BP 119/72; PULSE 71; RESP 14; TEMP 37.2; O2SAT 95
[2021-10-31 06:23] LABS: Absolute Neutrophil Count 2.8 X10^3/uL (2.0-7.7); Basophil# 0.02 X10^3/uL; Basophil% 0.5 % (0-1); Eosinophil# 0.17 X10^3/uL; Eosinophils% 4.3 % (0-5); Hemoglobin 8.8 g/dL (13.0-16.5); Lymphocyte % 10.1 % (19-41); Mean Corp Hgb Conc 32.6 g/dL (32-36); Mean Corpuscular Hgb 27.7 pg (27.0-32.0); Mean Corpuscular Volume 84.9 fL (80-94); Monocyte# 0.61 X10^3/uL; Monocyte% 15.4 % (0-10); NRBC Flagged by Analyzer 0 % (0-5); Neutrophil # 2.75 X10^3/uL (2.7-7.7); Neutrophil % 69.2 % (47-70); POSITIVE COUNT YES; POSITIVE DIFFERENTIAL YES; RBC Distribution Width CV 13.5 % (11.6-14.6); RBC Distribution Width SD 42.3 fl (35.1-43.9); Red Blood Count 3.18 M/mm3 (4.6-6.2)
[2021-10-31 06:56] LABS: ALB/GLOB Ratio 0.9 RATIO (0.9-2.4); AST(SGOT) 60 U/L (15-37); Alanine Aminotransfer ALT/SGPT 38 U/L (16-61); Albumin, Serum 2.2 g/dL (3.2-5.0); Alkaline Phosphatase 79 U/L (45-117); Anion Gap 8 (5-15); BUN 23 mg/dL (7-18); Chloride 103 mmol/L (98-107); Creatinine, Serum 1.28 mg/dL (0.70-1.30); EST Glomerular Filtration Rate 59 mL/min (>60); Est Glom Filt Rate - Afr Amer 71 mL/min (>60); Estimated Creatinine Clearance 55.45 ml/min; Globulin 2.4 g/dL (2.2-4.2); Glucose 96 mg/dL (74-106); Protein, Total 4.6 g/dL (6.4-8.2); Sodium Level 133 mmol/L (136-145)
[2021-10-31 06:59] LABS: Differential Indicated SCAN CRITERIA MET; Platelet Count 38 K/mm3 (150-450)
[2021-10-31 07:34] LABS: Platelet Estimate MKD DEC (ADEQ)
[2021-10-31 07:37] LABS: Hypochromasia 38
[2021-10-31 08:10] VITALS: BP 124/72; PULSE 72; RESP 16; TEMP 36.8; O2SAT 98
[2021-10-31 08:30] VITALS: O2SAT 97
[2021-10-31 09:00] LABS: Bedside Glucose 98 mg/dL (74-106)
[2021-10-31] MEDS: Ceftriaxone 1 GM/50 ML BAG IV (09:52)
[2021-10-31] MEDS: Lactulose 20 GM/30 ML UDC PO (09:52)
--- NOTE | 2021-10-31 10:25 | DCINST_ITS ---
Discharge Instructions Diet Discharge Diet: Low fat / Low cholesterol Activity Discharge Activity: Return to Normal Activity Dressing / Incision Call your doctor if you observe: Fever of 101 or Higher and Inability to urinate Follow Up Care Test Results: Test results from this visit will be discussed in further detail at your follow- up appointment, if applicable. Discharge Plan Admission Admit Date/Time: 10/30/21 14:40 Primary Reason for Your Visit: UTI Attending Provider: Ngozi Cohen Primary Care Provider: Josse Abrams Consulting Providers: Vicky Ferrer Discharge Orders/Prescriptions Prescriptions: New cefdinir 300 mg capsule 300 mg PO BID Qty: 10 0RF Continued milk thistle 500 MG capsule 2,000 mg PO BID omeprazole 20 MG capsule 20 mg PO DAILY finasteride 5 MG tablet 5 mg PO QODAY potassium chloride 10 MEQ tablet 20 meq PO DAILY multivitamin with folic acid [Thera] 1 TABLET tablet 1 tab PO DAILY torsemide 20 mg Tablet 20 mg PO DAILY triamterene 100 MG capsule 100 mg PO DAILY Referrals / Follow Up: Josse Abrams MD [Primary Care Provider] - Within 2 Weeks Disposition Disposition (needs filled in before D/C Order can be placed): Home Health Service
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
--- NOTE | 2021-10-31 10:30 | CASEMGMT ---
RN CM Face to Face with patient for initial transition planning/care coordination assessment. RN CM introduced self and role at [facility]. Patient lying in bed, alert and oriented, at bedside. Patient willing to participate in assessment and is able to answer all questions appropriately. Care providers, pharmacy, and demographics verified. Patient wishes to discharge home and would like HHC at discharge. Patient was provided a list of HHC providers including quality and resource use data and consistent with the patient?s preferred geographic region, medical needs, and insurance network. The patient?s preferred provider [facility]. CM to send referral. Patient states he has no further needs or concerns at this time. CM to follow for discharge planning needs that may arise. PCP: Jose Alberto Specialists: [employer] spa technician and Liver specialist Preferred Pharmacy: [facility] Insurance: Ann CAMP Prescription Benefit: yes Living Will/HPOA: none LNOK: Living Arrangements: Patient lives with in single story home with ramp to enter the home. Patient states he is independent at home. Transportation: self, DME/HHC: Patient has shower chair, raised toilet, cane, walker, rollator, and grab bars at home. Patient has had [facility] in the past for HHC. No previous HHC or SNF. Disposition Plan: Patient to discharge home with HHC, family support, and follow-up plans in place. Annie ESPINOSA, RN, CM
--- NOTE | 2021-10-31 11:50 | CASEMGMT ---
RN CM called and sent referral to [facility] at this time. nita Loomisison, states she will review referral and updated this RN BO. CM to continue to follow this patient and plan for a safe discharge.
[2021-10-31 12:00] LABS: Bedside Glucose 173 mg/dL (74-106)
[2021-10-31] MEDS: Insulin Lispro 100 UNIT/ML INSULN.PEN SC (12:32)
--- NOTE | 2021-10-31 12:45 | CASEMGMT ---
[facility] Liaison here and met with pt. Liaison reports pt has signed papers for the program and Palliative medicine will followup with pt once he is home. ANDERS Osman
--- NOTE | 2021-10-31 13:10 | CASEMGMT ---
RENETTA SORIANO received call back from Ebonie at [facility] and they are able to accept the patient with a Sunday start of care. RENETTA SORIANO updated patient and . Per , patient has MRI in [place] that day. RENETTA SORIANO called Ebonie back and requested start of care that patient was agreeable to.
[2021-10-31 13:55] VITALS: BP 135/71; PULSE 79; RESP 18; TEMP 36.9; O2SAT 100
--- NOTE | 2021-10-31 15:09 | PHA.DC.MR ---
Pharmacy Service has performed discharge medication reconciliation for this patient. The patient's discharge medication list was reviewed for discrepancies and discrepancies were resolved. Home Medications finasteride 5 mg tablet 5 mg PO QODAY 06/18/18 milk thistle 500 mg capsule 2,000 mg PO BID 06/18/18 multivitamin with folic acid 400 mcg tablet (Thera) 1 tab PO DAILY 06/18/18 omeprazole 20 mg capsule,delayed release 20 mg PO DAILY 06/18/18 potassium chloride 10 mEq tablet,extended release(part/cryst) 20 meq PO DAILY 06/18/18 torsemide 20 mg tablet 20 mg PO DAILY 10/29/21 triamterene 100 mg capsule 100 mg PO DAILY 10/29/21 cefdinir 300 mg capsule 300 mg PO BID #10 caps 10/31/21
[2021-11-01 09:53] LABS: Pathologist Review Reviewed
[2021-11-01 10:03] LABS: Pathologist Review Reviewed
[2021-11-01 10:03] LABS: Pathologist Review Reviewed
== END 2021-10-31 14:20 | disposition home health service (06) | DRG 689 ==
LOC: ED 13:53 → MS3 14:16
PROVIDERS: Nurse Practitioner Family; Physician Assistant; Admitting Provider Family Medicine; Emergency Provider Emergency Medicine; PCP Family Medicine; Visit Provider Internal Medicine
DX: N39.0 Urinary tract infection, site not specified (principal); G92.8 Other toxic encephalopathy; D61.818 Other pancytopenia; E87.2 Acidosis; E87.1 Hypo-osmolality and hyponatremia; N17.9 Acute kidney failure, unspecified; K72.90 Hepatic failure, unspecified without coma; D69.6 Thrombocytopenia, unspecified; K74.60 Unspecified cirrhosis of liver; N18.32 Chronic kidney disease, stage 3b; K52.9 Noninfective gastroenteritis and colitis, unspecified; E86.0 Dehydration; D72.819 Decreased white blood cell count, unspecified; Z87.891 Personal history of nicotine dependence; B96.1 Klebsiella pneumoniae [K. pneumoniae] as the cause of diseases classified elsewhere
CPT/HCPCS: 36415; 71045; 80048; 80053; 80076; 81001; 82140; 82962; 83605; 85025; 85610; 87077; 87086; 87088; 87186; 97162; 97166; 97530; 99284; J7030; J7050; A4216

== ENCOUNTER 2021-12-07 20:21 | Inpatient (IN) | payer MEDICARE, OTHER, SELFPAY ==
[2021-12-07 20:22] VITALS: BP 144/89; PULSE 108; RESP 15; TEMP 37.8; O2SAT 100; BMI 28.7
--- NOTE | 2021-12-07 20:46 | EDS_ITS ---
HPI History of Present Illness Chief Complaint: Fever Informant: patient and spouse/S.O. Onset/Context/Timing Onset: Today Context: Sudden Onset Timing: Waxes and wanes Quality: Confused Location: Generalized Worsened by: Nothing Relieved by: Nothing Narrative Narrative: Patient presents with a fever that began today. also states the patient is confused at times. Patient has a history of cirrhosis and hepatic encephalopathy. Patient also was recently admitted for urinary tract infection. states that he was very confused with his urinary tract infection at that time. states patient had a temperature up to 102.2 at home. Patient has not taken any Tylenol or ibuprofen at home. Patient admits to some mild back pain but denies any neck pain. Patient denies any cough. Patient denies any urinary complaints. [facility] Medical History Former smoker Leukopenia Liver cirrhosis Thrombocytopenia Home Medications finasteride 5 mg tablet 5 mg PO QODAY 06/18/18 [History Last Taken Unknown] milk thistle 500 mg capsule 2,000 mg PO BID 06/18/18 [History Last Taken U nknown] multivitamin with folic acid 400 mcg tablet (Thera) 1 tab PO DAILY 06/18/18 [History Last Taken Unknown] omeprazole 20 mg capsule,delayed release 20 mg PO DAILY 06/18/18 [History Last Taken Unknown] potassium chloride 10 mEq tablet,extended release(part/cryst) 20 meq PO DAILY 06/18/18 [History Last Taken Unknown] torsemide 20 mg tablet 20 mg PO DAILY 10/29/21 [History Last Taken Unknown] triamterene 100 mg capsule 100 mg PO DAILY 10/29/21 [History Last Taken Unknown] cefdinir 300 mg capsule 300 mg PO BID #10 caps 10/31/21 [Rx Last Taken Unknown] Allergy/AdvReac Type Severity Reaction Status Date / Time mushroom Allergy Unknown Verified 12/07/21 20:22 nabumetone [From Relafen] Allergy Other Verified 12/07/21 20:22 naproxen [From Naprosyn] Allergy Other Verified 12/07/21 20:22 Family History (Updated 12/07/21 @ 23:[address] Dallas Giang MD) Other Diabetes Hypertension Surgical History Hx of aortic valve replacement Hx of CABG Hx of carpal tunnel repair Hx of shoulder surgery Social History Smoking Status: Never smoker Smokeless tobacco user: chewing tobacco substance use type: does not use ROS ROS ED Constitutional Constitutional ED: Reports fever(s); Denies chills Eyes Eyes: Denies blurry vision or change in vision ENT ENT ED: Denies rhinorrhea or sore throat Cardiovascular Cardiovascular: Denies chest pain or palpitations Respiratory/Chest Respiratory/Chest: Denies cough or dyspnea Gastrointestinal Gastrointestinal: Denies nausea or vomiting Genitourinary Genitourinary ED: Denies dysuria or hematuria Musculoskeletal Musculoskeletal: Reports back pain; Denies neck pain Integumentary Denies abscess or rash Neurologic Neurologic: Denies headache(s) or weakness Allergic/Immunologic Allergic/Immunologic ED: Denies mouth swelling or urticaria EXAM Physical Exam Const Vital Signs: 12/07/21 20:22 12/07/21 20:32 12/07/21 21:51 Temperature 100.0 F H 100.2 F H Temperature Source Oral Oral Pulse Rate 108 H 105 H Respiratory Rate 15 17 Respiratory Effort Normal Respiratory Pattern Normal Blood Pressure 144/89 H 139/78 H Blood Pressure Mean 107 98 Pulse Ox 100 100 Oxygen Delivery Method Room Air Room Air 12/07/21 22:28 12/07/21 23:06 Temperature 100 F H 100 F H Temperature Source Oral Oral Pulse Rate 98 96 Respiratory Rate 25 H 25 H Respiratory Effort Respiratory Pattern Blood Pressure 128/71 H 101/74 Blood Pressure Mean 90 83 Pulse Ox 100 100 Oxygen Delivery Method Room Air Room Air Positive well nourished and well developed General Appearance ED: well developed and NAD HEENT Reports moist mucous membranes Neck supple and no JVD Resp normal respiratory effort and clear to auscultation bilaterally Cardio regular rate, regular rhythm and no murmurs GI non-tender GI Narrative: There is some distention of the abdomen. There is a fluid wave noted. There is no tenderness. There is no rebound or guarding noted. Inspection: abdominal distention Palpation: soft Rectal Exam: normal sphincter tone, heme negative stool and other Other Details: There is light brown stool. Extremity normal to inspection General Extremety ED: Negative for edema or tenderness General Extremity: Negative for edema Neuro oriented x3, CN's II-XII intact bilaterally and no sensory deficits noted Sensorium / Orientation: alert Motor Exam: strength 5/5 throughout Psych mental status grossly normal Skin no rashes or lesions noted MDM MDM MDM Narrative Medical decision making narrative: Patient was given a dose of Tylenol here. CBC shows normal white blood cell count. Hemoglobin was 5.6 and hematocrit was 18.7. Platelets were low at 37. The thrombocytopenia is chronic. Comprehensive metabolic profile showed a creatinine of 1.54. This is consistent with prior results. Total bilirubin was 2.8. Ammonia level was slightly elevated at 41. Patient was given a dose of lactulose here. Lactate was normal. Lipase was normal. Urinalysis shows leukocyte esterase of 25. There were 0-5 white blood cells. Pro time was 18.8. INR was 1.6. PTT was 32.8. Portable chest x-ray was obtained. There is 1 view. On my interpretation, there is no acute infiltrate. Bony thorax is normal. There is no cardiomegaly. There is no acute cardiopulmonary process. Radiologist also interpreted the x-ray and agrees. Type and crossmatch was obtained. Patient is agreeable to transfusion. Patient will be transfused 2 units of blood. Case was discussed with the hospitalist. He request the patient be transfused with platelets as well. This was ordered. We will admit the patient to PCU for observation. Patient understands and is agreeable with the plan. All questions were answered. Lab Data Attestation: I reviewed the patient's lab results. Labs: Laboratory Results - last 24 hr 12/07/21 12/07/21 12/07/21 21:09 21:09 21:09 WBC Cancelled Corrected WBC Cancelled RBC Cancelled Hgb Cancelled Hct Cancelled MCV Cancelled MCH Cancelled MCHC Cancelled RDW Std Deviation Cancelled RDW Coeff of Maria R Cancelled Plt Count Cancelled MPV Cancelled Immature Gran % (Auto) Cancelled Neut % (Auto) Cancelled Lymph % (Auto) Cancelled [place] % (Auto) Cancelled Eos % (Auto) Cancelled Baso % (Auto) Cancelled Absolute Neuts (auto) Cancelled Absolute Lymphs (auto) Cancelled Total Counted Cancelled Neutrophils % (Manual) Cancelled Band Neutrophils % Cancelled Lymphocytes % (Manual) Cancelled Monocytes % (Manual) Cancelled Eosinophils % (Manual) Cancelled Basophils % (Manual) Cancelled Metamyelocytes % Cancelled Myelocytes % Cancelled Promyelocytes % Cancelled Blast Cells % Cancelled Plasma Cell % (Manual) Cancelled Other Cells % Cancelled Nucleated RBC % Cancelled Nucleated RBCs/100 WBC Cancelled Differential Comment Cancelled Diff Path Review Cancelled Hypersegmented Neuts Cancelled Atypical Lymphocytes Cancelled Reactive Lymphocytes Cancelled Smudge Cells Cancelled Toxic Granulation Cancelled Toxic Vacuolation Cancelled Dohle Bodies Cancelled Rena Rods Cancelled Platelet Estimate Cancelled Plt Morphology Comment Cancelled RBC Morphology Cancelled Polychromasia Cancelled Hypochromasia Cancelled Poikilocytosis Cancelled Basophilic Stippling Cancelled Anisocytosis Cancelled Microcytosis Cancelled Macrocytosis Cancelled Spherocytes Cancelled Sickle Cells Cancelled Target Cells Cancelled Tear Drop Cells Cancelled Ovalocytes Cancelled Stomatocytes Cancelled [place] Bodies Cancelled Gustavo Cells Cancelled Bite Cells Cancelled Crenated Cell Cancelled Acanthocytes (Spur) Cancelled Rouleaux Cancelled Schistocytes Cancelled PT Cancelled INR Cancelled APTT Cancelled Sodium 134 L Potassium 3.8 Chloride 103 Carbon Dioxide 23.0 Anion Gap 8 BUN 14 Creatinine 1.54 H Estim Creat Clear Calc 46.09 Est GFR (MDRD) Af Amer 58 L Est GFR (MDRD) Non-Af 48 L BUN/Creatinine Ratio 9.1 L Glucose 149 H Lactic Acid Calcium 7.9 L Total Bilirubin 2.80 H AST 56 H ALT 35 Alkaline Phosphatase 99 Ammonia Total Protein 5.0 L Albumin 2.2 L Globulin 2.8 Albumin/Globulin Ratio 0.8 L Lipase 206 Urine Color Urine Clarity Urine pH Ur Specific [place] Urine Protein Urine Glucose (UA) Urine Ketones Urine Occult Blood Urine Nitrite Urine Bilirubin Urine Urobilinogen Ur Leukocyte Esterase Urine RBC Urine WBC Ur Squamous Epith Cells Urine Bacteria Urine Mucus Crossmatch 12/07/21 12/07/21 12/07/21 21:09 21:09 21:30 WBC Corrected WBC RBC Hgb Hct MCV MCH MCHC RDW Std Deviation RDW Coeff of Maria R Plt Count MPV Immature Gran % (Auto) Neut % (Auto) Lymph % (Auto) [place] % (Auto) Eos % (Auto) Baso % (Auto) Absolute Neuts (auto) Absolute Lymphs (auto) Total Counted Neutrophils % (Manual) Band Neutrophils % Lymphocytes % (Manual) Monocytes % (Manual) Eosinophils % (Manual) Basophils % (Manual) Metamyelocytes % Myelocytes % Promyelocytes % Blast Cells % Plasma Cell % (Manual) Other Cells % Nucleated RBC % Nucleated RBCs/100 WBC Differential Comment Diff Path Review Hypersegmented Neuts Atypical Lymphocytes Reactive Lymphocytes Smudge Cells Toxic Granulation Toxic Vacuolation Dohle Bodies Rena Rods Platelet Estimate Plt Morphology Comment RBC Morphology Polychromasia Hypochromasia Poikilocytosis Basophilic Stippling Anisocytosis Microcytosis Macrocytosis Spherocytes Sickle Cells Target Cells Tear Drop Cells Ovalocytes Stomatocytes [place] Bodies Gustavo Cells Bite Cells Crenated Cell Acanthocytes (Spur) Rouleaux Schistocytes PT 18.8 H INR 1.6 APTT 32.8 Sodium Potassium Chloride Carbon Dioxide Anion Gap BUN Creatinine Estim Creat Clear Calc Est GFR (MDRD) Af Amer Est GFR (MDRD) Non-Af BUN/Creatinine Ratio Glucose Lactic Acid 1.5 Calcium Total Bilirubin AST ALT Alkaline Phosphatase Ammonia 41.0 H Total Protein Albumin Globulin Albumin/Globulin Ratio Lipase Urine Color Urine Clarity Urine pH Ur Specific [place] Urine Protein Urine Glucose (UA) Urine Ketones Urine Occult Blood Urine Nitrite Urine Bilirubin Urine Urobilinogen Ur Leukocyte Esterase Urine RBC Urine WBC Ur Squamous Epith Cells Urine Bacteria Urine Mucus Crossmatch 12/07/21 12/07/21 12/07/21 21:53 22:15 22:40 WBC 5.5 Corrected WBC RBC 2.63 L Hgb 5.6 L* Hct 18.7 L MCV 71.1 L MCH 21.3 L MCHC 29.9 L RDW Std Deviation 40.3 RDW Coeff of Maria R 15.6 H Plt Count 37 L* MPV Immature Gran % (Auto) 0.700 Neut % (Auto) 88.6 H Lymph % (Auto) 3.6 L [place] % (Auto) 6.5 Eos % (Auto) 0.4 Baso % (Auto) 0.2 Absolute Neuts (auto) 4.9 Absolute Lymphs (auto) 0.20 L Total Counted Neutrophils % (Manual) Band Neutrophils % Lymphocytes % (Manual) Monocytes % (Manual) Eosinophils % (Manual) Basophils % (Manual) Metamyelocytes % Myelocytes % Promyelocytes % Blast Cells % Plasma Cell % (Manual) Other Cells % Nucleated RBC % 0 Nucleated RBCs/100 WBC Differential Comment SCANNED Diff Path Review May foll Hypersegmented Neuts Atypical Lymphocytes Reactive Lymphocytes Smudge Cells Toxic Granulation Toxic Vacuolation Dohle Bodies Rena Rods Platelet Estimate Plt Morphology Comment RBC Morphology Polychromasia Hypochromasia Poikilocytosis Basophilic Stippling Anisocytosis Microcytosis Macrocytosis Spherocytes Sickle Cells Target Cells Tear Drop Cells Ovalocytes Stomatocytes [place] Bodies Gustavo Cells Bite Cells Crenated Cell Acanthocytes (Spur) Rouleaux Schistocytes PT INR APTT Sodium Potassium Chloride Carbon Dioxide Anion Gap BUN Creatinine Estim Creat Clear Calc Est GFR (MDRD) Af Amer Est GFR (MDRD) Non-Af BUN/Creatinine Ratio Glucose Lactic Acid Calcium Total Bilirubin AST ALT Alkaline Phosphatase Ammonia Total Protein Albumin Globulin Albumin/Globulin Ratio Lipase Urine Color Yellow Urine Clarity Clear Urine pH 6.0 Ur Specific [place] 1.010 Urine Protein Negative Urine Glucose (UA) Normal Urine Ketones Negative Urine Occult Blood Negative Urine Nitrite Negative Urine Bilirubin Negative Urine Urobilinogen Normal Ur Leukocyte Esterase 25 H Urine RBC 0 SEEN Urine WBC 0-5 SEEN Ur Squamous Epith Cells 0 SEEN Urine Bacteria RARE Urine Mucus 0 SEEN Crossmatch See Detail Radiography Chest X-Ray - ED: 1 View, Read by ED Physician, Read by Radiologist and No Acute Disease Discharge Plan Dx/Rx/DC Orders Clinical Impression: Anemia, Liver cirrhosis, Hepatic encephalopathy, Thrombocytopenia Disposition Disposition: Acute Care Hospital [facility]
[2021-12-07 21:34] LABS: ALB/GLOB Ratio 0.8 RATIO (0.9-2.4); AST(SGOT) 56 U/L (15-37); Alanine Aminotransfer ALT/SGPT 35 U/L (16-61); Albumin, Serum 2.2 g/dL (3.2-5.0); Alkaline Phosphatase 99 U/L (45-117); Anion Gap 8 (5-15); BUN 14 mg/dL (7-18); BUN/Creat Ratio 9.1 RATIO (10-20); Calcium,Total 7.9 mg/dL (8.5-10.1); Chloride 103 mmol/L (98-107); Creatinine, Serum 1.54 mg/dL (0.70-1.30); EST Glomerular Filtration Rate 48 mL/min (>60); Est Glom Filt Rate - Afr Amer 58 mL/min (>60); Estimated Creatinine Clearance 46.09 ml/min; Globulin 2.8 g/dL (2.2-4.2); Glucose 149 mg/dL (74-106); Lipase 206 U/L (73-393); Potassium 3.8 mmol/L (3.5-5.1); Sodium Level 134 mmol/L (136-145)
[2021-12-07 21:42] LABS: Lactic Acid 1.5 mmol/L (0.4-1.9)
[2021-12-07 21:51] VITALS: BP 139/78; PULSE 105; RESP 17; TEMP 37.9; O2SAT 100
[2021-12-07 21:53] LABS: International Normalized Ratio 1.6; Prothrombin Time (Protime)PT. 18.8 SECONDS (11.7-14.9)
[2021-12-07 21:54] LABS: Partial Thromboplast Time 32.8 Seconds (24.1-36.2)
[2021-12-07 21:59] LABS: Absolute Neutrophil Count 4.9 X10^3/uL (2.0-7.7); Basophil# 0.01 X10^3/uL; Basophil% 0.2 % (0-1); Eosinophil# 0.02 X10^3/uL; Eosinophils% 0.4 % (0-5); Hematocrit 18.7 % (40-54); Lymphocyte % 3.6 % (19-41); Mean Corp Hgb Conc 29.9 g/dL (32-36); Mean Corpuscular Hgb 21.3 pg (27.0-32.0); Mean Corpuscular Volume 71.1 fL (80-94); Monocyte# 0.36 X10^3/uL; Monocyte% 6.5 % (0-10); NRBC Flagged by Analyzer 0 % (0-5); Neutrophil % 88.6 % (47-70); POSITIVE COUNT YES; POSITIVE DIFFERENTIAL YES; RBC Distribution Width CV 15.6 % (11.6-14.6); RBC Distribution Width SD 40.3 fl (35.1-43.9); Red Blood Count 2.63 M/mm3 (4.6-6.2); White Blood Count 5.5 K/mm3 (4.4-11.0)
[2021-12-07 22:10] LABS: Differential Indicated SCAN CRITERIA MET; Hemoglobin 5.6 g/dL (13.0-16.5); Platelet Count 37 K/mm3 (150-450)
[2021-12-07 22:22] LABS: Color, Urine Yellow (Yellow); Glucose, Dipstick Normal (Normal); Ketone-Dipstick Negative (Negative); Leukocyte Esterase-Dipstick 25 /ul (Negative); Mucous, Urine 0 SEEN /hpf (<or=2+); Nitrite-Dipstick Negative (Negative); Occult Blood-Urine Negative /ul (Negative); Protein-Dipstick Negative (Negative); Red Blood Cells-Urine 0 SEEN /hpf (0-5); Squamous Epithelial Cells - UA 0 SEEN /hpf (0-5); Urine Bilirubin Dipstick Negative (Negative); Urine Clarity Clear (Clear); Urine Urobilinogen Normal (Normal)
[2021-12-07 22:28] VITALS: BP 128/71; PULSE 98; RESP 25; TEMP 37.7; O2SAT 100
[2021-12-07 22:31] LABS: Differential Comment SCANNED
[2021-12-07] MEDS: Acetaminophen 500 MG Tablet 1000 MG PO (22:43)
--- NOTE | 2021-12-07 22:53 | HP.PCM.HOS_ITS ---
HPI - General General Date of Admission: 12/07/21 Date of Service: 12/07/21 Chief Complaint: Fever HPI Narrative ALYSE PERDOMO, is a 71 M with a significant history of cirrhosis; CABG; bovine aortic valve replacement and chronic pancytopenia who presented to emergency department with fever. Reportedly his highest temperature at home was 102.2 F. Associated with his symptoms is lethargy and disorientation. Further patient has nausea and anorexia. His abdomen always feel bloated. Patient was previously on a transplant list but he took himself off transplant list. Recently he was treated for UTI (10/30/21 to 10/31/21) He has chronic pain in multiple joints. [facility] Medical History Former smoker Leukopenia Liver cirrhosis Thrombocytopenia Home Medications finasteride 5 mg tablet 5 mg PO QODAY Check with primary doctor 06/18/18 [History Last Taken 12/07/21] milk thistle 500 mg capsule 2,000 mg PO BID Check with primary doctor 06/18/18 [History Last Taken 12/07/21] multivitamin with folic acid 400 mcg tablet (Thera) 1 tab PO DAILY Check with primary doctor 06/18/18 [History Last Taken 12/07/21] omeprazole 20 mg capsule,delayed release 20 mg PO DAILY Check with primary doctor 06/18/18 [History Last Taken 12/07/21] potassium chloride 10 mEq tablet,extended release(part/cryst) 20 meq PO DAILY 06/18/18 [History Last Taken 12/07/21] torsemide 20 mg tablet 20 mg PO DAILY Check with primary doctor 10/29/21 [History Last Taken 12/07/21] triamterene 100 mg capsule 100 mg PO DAILY 10/29/21 [History Last Taken 12/07/21] cefdinir 300 mg capsule 300 mg PO BID #10 caps 10/31/21 [Rx Last Taken Unknown] tamsulosin 0.4 mg capsule 0.4 mg PO 12/08/21 [History Last Taken 12/07/21] Allergy/AdvReac Type Severity Reaction Status Date / Time mushroom Allergy Unknown Verified 12/07/21 20:22 nabumetone [From Relafen] Allergy Other Verified 12/07/21 20:22 naproxen [From Naprosyn] Allergy Other Verified 12/07/21 20:22 Family History Other Diabetes Hypertension Surgical History Hx of aortic valve replacement Hx of CABG Hx of carpal tunnel repair Hx of shoulder surgery Social History Smoking Status: Never smoker Smokeless tobacco user: chewing tobacco substance use type: does not use ROS ROS Narrative Pertinent positives and pertinent negatives as noted in HPI. All other systems were reviewed and are negative. Vital Signs Vital Signs Vital Signs: 12/07/21 20:22 12/07/21 20:32 12/07/21 21:51 Temperature 100.0 F H 100.2 F H Temperature Source Oral Oral Pulse Rate 108 H 105 H Respiratory Rate 15 17 Respiratory Effort Normal Respiratory Pattern Normal Blood Pressure 144/89 H 139/78 H Blood Pressure Mean 107 98 Pulse Ox 100 100 Oxygen Delivery Method Room Air Room Air 12/07/21 22:28 Temperature 100 F H Temperature Source Oral Pulse Rate 98 Respiratory Rate 25 H Respiratory Effort Respiratory Pattern Blood Pressure 128/71 H Blood Pressure Mean 90 Pulse Ox 100 Oxygen Delivery Method Room Air Weight Weight: 90.718 kg Body Mass Index (BMI) 28.7 Physical Exam Narrative Physical exam: General: Well-nourished, well-developed. Head: Normocephalic, atraumatic, no tenderness Eyes: Vision is grossly intact. EOMI ENT, no trauma, moist mucous membranes, no rhinorrhea Neck: Nontender, full range of motion. CVS: Regular rate and rhythm. S1-S2 present. No murmur, gallop or rub. Respiratory : clear to auscultation bilaterally, chest wall nontender, no wheezing Abdomen: Soft, nontender, nondistended, normal bowel sounds, no masses : Deferred Back: Nontender, no CVA tenderness. Extremities: Nontender full range of motion, no trauma Skin: Normal color, no trauma, abrasions Neuro: Alert, oriented, cranial nerves II through XII grossly intact. Psychiatry: Normal mood. Normal affect. Not depressed. Not anxious. Results Lab / Micro Data Result Diagrams: 12/07/21 21:53 12/07/21 21:09 Labs: Laboratory Results - last 24 hr 12/07/21 21:09: WBC Cancelled, Corrected WBC Cancelled, RBC Cancelled, Hgb Cancelled, Hct Cancelled, MCV Cancelled, MCH Cancelled, MCHC Cancelled, RDW Std Deviation Cancelled, RDW Coeff of Maria R Cancelled, Plt Count Cancelled, MPV Cancelled, Immature Gran % (Auto) Cancelled, Neut % (Auto) Cancelled, Lymph % (Auto) Cancelled, [place] % (Auto) Cancelled, Eos % (Auto) Cancelled, Baso % (Auto) Cancelled, Absolute Neuts (auto) Cancelled, Absolute Lymphs (auto) Cancelled, Total Counted Cancelled, Neutrophils % (Manual) Cancelled, Band Neutrophils % Cancelled, Lymphocytes % (Manual) Cancelled, Monocytes % (Manual) Cancelled, Eosinophils % (Manual) Cancelled, Basophils % (Manual) Cancelled, Metamyelocytes % Cancelled, Myelocytes % Cancelled, Promyelocytes % Cancelled, Blast Cells % Cancelled, Plasma Cell % (Manual) Cancelled, Other Cells % Cancelled, Nucleated RBC % Cancelled, Nucleated RBCs/100 WBC Cancelled, Differential Comment Cancelled, Diff Path Review Cancelled, Hypersegmented Neuts Cancelled, Atypical Lymphocytes Cancelled, Reactive Lymphocytes Cancelled, Smudge Cells Cancelled, Toxic Granulation Cancelled, Toxic Vacuolation Cancelled, Dohle Bodies Cancelled, Rena Rods Cancelled, Platelet Estimate Cancelled, Plt Morphology Comment Cancelled, RBC Morphology Cancelled, Polychromasia Cancelled, Hypochromasia Cancelled, Poikilocytosis Cancelled, Basophilic Stippling Cancelled, Anisocytosis Cancelled, Microcytosis Cancelled, Macrocytosis Canc elled, Spherocytes Cancelled, Sickle Cells Cancelled, Target Cells Cancelled, Tear Drop Cells Cancelled, Ovalocytes Cancelled, Stomatocytes Cancelled, [place] Bodies Cancelled, [place] Cells Cancelled, Bite Cells Cancelled, Crenated Cell Cancelled, Acanthocytes (Spur) Cancelled, Rouleaux Cancelled, Schistocytes Cancelled 12/07/21 21:09: PT Cancelled, INR Cancelled, APTT Cancelled 12/07/21 21:09: Sodium 134 L, Potassium 3.8, Chloride 103, Carbon Dioxide 23.0, Anion Gap 8, BUN 14, Creatinine 1.54 H, Estim Creat Clear Calc 46.09, Est GFR (MDRD) Af Amer 58 L, Est GFR (MDRD) Non-Af 48 L, BUN/Creatinine Ratio 9.1 L, Glucose 149 H, Calcium 7.9 L, Total Bilirubin 2.80 H, AST 56 H, ALT 35, Alkaline Phosphatase 99, Total Protein 5.0 L, Albumin 2.2 L, Globulin 2.8, Albumin/Globulin Ratio 0.8 L, Lipase 206 12/07/21 21:09: Ammonia 41.0 H 12/07/21 21:09: Lactic Acid 1.5 12/07/21 21:30: PT 18.8 H, INR 1.6, APTT 32.8 12/07/21 21:53: WBC 5.5, RBC 2.63 L, Hgb 5.6 L*, Hct 18.7 L, MCV 71.1 L, MCH 21.3 L, MCHC 29.9 L, RDW Std Deviation 40.3, RDW Coeff of Maria R 15.6 H, Plt Count 37 L*, Immature Gran % (Auto) 0.700, Neut % (Auto) 88.6 H, Lymph % (Auto) 3.6 L, [place] % (Auto) 6.5, Eos % (Auto) 0.4, Baso % (Auto) 0.2, Absolute Neuts (auto) 4.9, Absolute Lymphs (auto) 0.20 L, Nucleated RBC % 0, Differential Comment SCANNED, Diff Path Review August12/07/21 22:15: Urine Color Yellow, Urine Clarity Clear, Urine pH 6.0, Ur Specific [place] 1.010, Urine Protein Negative, Urine Glucose (UA) Normal, Urine Ketones Negative, Urine Occult Blood Negative, Urine Nitrite Negative, Urine Bilirubin Negative, Urine Urobilinogen Normal, Ur Leukocyte Esterase 25 H 12/07/21 22:40: Crossmatch See Detail Micro: Microbiology 12/07/21 20:55 Nasal Secretion SARS-CoV-2 & FLU Antigen (Rapid) - Final Assessment & Plan Assessment/Plan (1) Fever: (2) Lethargy: (3) Hepatic encephalopathy: (4) Pancytopenia: PLAN: Plan Hepatic encephalopathy Ammonia level of 41. Lactulose ordered Fever and lethargy Chest x-ray image was visualized and independently interpreted. I agree with radiologist interpretation of Normal x-ray examination of the chest. Urinalysis unrevealing PT/INR 1.6 Ultrasound paracentesis with fluid studies to rule out SBP. Hold off a ntibiotics at this time. Pancytopenia Hemoglobin of 5.6. Emergent department doctor reports brown stools on rectal examination. Occult stools ordered the ED, follow. 2 units of packed red blood cells ordered. With potential for paracentesis 1 unit of platelets ordered at emergency department. Iron studies; reticulocyte; vitamin B12 and folic acid ordered. Iron studies point towards iron deficiency anemia. Cirrhosis of ascites Stable Torsemide and triamterene continued. HTN Stable. Antihypertensive continued as above. Trend BP CKD Stage 3b Stable Trend BMP DVT prophylaxis: Not a candidate for chemical thromboprophylaxis secondary to thrombocytopenia., SCD ordered. Charges/Coding Visit Charges OBSV E&M: 64180 Initial observation care L3
--- NOTE | 2021-12-07 23:00 | RAD_ITS ---
STUDY: X-RAY CHEST REASON FOR EXAM: Male, 71 years old. Fever TECHNIQUE: Single AP portable view of the chest. COMPARISON: 10/29/2021 FINDINGS: The lungs are clear and expanded. There is no demonstrated pleural abnormality. Sternal cerclage wires are present from a prior sternotomy. Mild cardiomegaly. Normal mediastinum and south. Normal visualized pulmonary arteries. Normal visualized aortic arch and descending thoracic aorta. Normal visualized thoracic spine. Stable right shoulder arthroplasty There is no demonstrated abnormality of the visualized soft tissue structures of the upper abdomen. RAD/Chest 1 View (Portable) IMPRESSION: Normal x-ray examination of the chest. Electronically Signed: Jesus Germain DO at 23:34 EDT ,
[2021-12-07 23:01] LABS: White Blood Cells 0-5 SEEN /hpf (0-5)
[2021-12-07 23:02] LABS: Bacteria RARE /hpf (None Seen)
[2021-12-07 23:06] VITALS: BP 101/74; PULSE 96; RESP 25; TEMP 37.7; O2SAT 100
[2021-12-07] MEDS: Lactulose 20 GM/30 ML UDC PO (23:42)
[2021-12-07 23:43] LABS: Immature Platelet Fraction 9.8 % (1.0-7.9); RET-HE 16.5 pg (30-35); Reticulocyte Count 2.86 % (0.5-1.5)
[2021-12-07 23:51] VITALS: BP 109/66; PULSE 98; RESP 19; TEMP 37.6; O2SAT 99
[2021-12-07 23:53] LABS: Platelet Count 39 K/mm3 (150-450)
[2021-12-07 23:59] VITALS: BP 130/66; PULSE 97; RESP 16; TEMP 37; O2SAT 100; BMI 29.1
[2021-12-08] VITALS (23 sets, daily range): BP systolic 115–145; BP diastolic 62–94; PULSE 73–104; RESP 14–18; TEMP 36.3–38.7; O2SAT 99–100
[2021-12-08 00:06] LABS: Ferritin 12 ng/mL (26-388); Iron 14 ug/dL (65-175); Iron Binding Capacity,Total 422 ug/dL (250-450); PERCENT IRON SATURATION 3.3 % (15.0-55.0)
--- NOTE | 2021-12-08 00:32 | US_ITS ---
PROCEDURE: Ultrasound guided paracentesis. DATE OF EXAMINATION: 12/08/2021. INDICATION: Male, 71 years old. Ascites. PHYSICIAN: Rene Bridges M.D. TECHNIQUE: The risks, benefits, and alternatives to the procedure were explained to the patient. The specific risks of bleeding, infection, and damage to bowel were detailed and accepted. Witnessed informed consent was obtained. The abdomen was ultrasonographically surveyed. An appropriate pocket of fluid was identified at the right lower quadrant. The skin were cleaned and prepped in the usual sterile fashion. Using ultrasound guidance, the peritoneal cavity was accessed with a 5-[place] paracentesis needle/catheter system. The trocar was removed. A total of 3950 ml of nikolas-colored fluid were removed from the peritoneal cavity. A 100 mL sample was sent to the laboratory for analysis. The catheter was removed and a sterile dressing was applied. The procedure was well tolerated. US/Paracentesis with US IMPRESSION: Ultrasound guided paracentesis. Electronically Signed: Rene Bridges MD at 14:26 EDT ,
[2021-12-08] MEDS: 0.9% Saline Lock 10 ML Syringe IV ×3 (01:13→21:27)
[2021-12-08 06:13] LABS: Anion Gap 6 (5-15); BUN 16 mg/dL (7-18); Calcium,Total 7.6 mg/dL (8.5-10.1); Chloride 105 mmol/L (98-107); Creatinine, Serum 1.45 mg/dL (0.70-1.30); EST Glomerular Filtration Rate 51 mL/min (>60); Est Glom Filt Rate - Afr Amer 62 mL/min (>60); Estimated Creatinine Clearance 48.95 ml/min; Glucose 125 mg/dL (74-106); Potassium 3.7 mmol/L (3.5-5.1); Sodium Level 133 mmol/L (136-145)
--- NOTE | 2021-12-08 08:00 | PCM.PN.HOSP ---
Subjective Subjective Denies any melena nor hematochezia. Objective Data Objective Data Vital Signs: Vital Signs Temp Pulse Resp BP Pulse Ox O2 Del Method 36.5 C L 74 16 137/73 H 99 Room Air 12/08/21 06:55 12/08/21 06:55 12/08/21 06:55 12/08/21 06:55 12/08/21 07:10 12/08/21 07:10 Oxygen Delivery Method Room Air Weight: 92.2 kg Body Mass Index (BMI) 29.1 Intake & Output: Intake and Output for Last 24 Hours 12/06/21 12/07/21 12/08/21 23:59 23:59 23:59 Intake Total 1000 / 1000 Balance 1000 / 1000 Lab / Micro Data Result Diagrams: 12/08/21 08:03 12/08/21 05:31 Labs: Laboratory Results - last 24 hr 12/07/21 21:09: WBC Cancelled, Corrected WBC Cancelled, RBC Cancelled, Hgb Cancelled, Hct Cancelled, MCV Cancelled, MCH Cancelled, MCHC Cancelled, RDW Std Deviation Cancelled, RDW Coeff of Maria R Cancelled, Plt Count Cancelled, MPV Cancelled, Immature Gran % (Auto) Cancelled, Neut % (Auto) Cancelled, Lymph % (Auto) Cancelled, Laurens % (Auto) Cancelled, Eos % (Auto) Cancelled, Baso % (Auto) Cancelled, Absolute Neuts (auto) Cancelled, Absolute Lymphs (auto) Cancelled, Total Counted Cancelled, Neutrophils % (Manual) Cancelled, Band Neutrophils % Cancelled, Lymphocytes % (Manual) Cancelled, Monocytes % (Manual) Cancelled, Eosinophils % (Manual) Cancelled, Basophils % (Manual) Cancelled, Metamyelocytes % Cancelled, Myelocytes % Cancelled, Promyelocytes % Cancelled, Blast Cells % Cancelled, Plasma Cell % (Manual) Cancelled, Other Cells % Cancelled, Nucleated RBC % Cancelled, Nucleated RBCs/100 WBC Cancelled, Differential Comment Cancelled, Diff Path Review Cancelled, Hypersegmented Neuts Cancelled, Atypical Lymphocytes Cancelled, Reactive Lymphocytes Cancelled, Smudge Cells Cancelled, Toxic Granulation Cancelled, Toxic Vacuolation Cancelled, Dohle Bodies Cancelled, Rena Rods Cancelled, Platelet Estimate Cancelled, Plt Morphology Comment Cancelled, RBC Morphology Cancelled, Polychromasia Cancelled, Hypochromasia Cancelled, Poikilocytosis Cancelled, Basophilic Stippling Cancelled, Anisocytosis Cancelled, Microcytosis Cancelled, Macrocytosis Cancelled, Spherocytes Cancelled, Sickle Cells Cancelled, Target Cells Cancelled, Tear Drop Cells Cancelled, Ovalocytes Cancelled, Stomatocytes Cancelled, Marsh[place] Bodies Cancelled, [place] Cells Cancelled, Bite Cells Cancelled, Crenated Cell Cancelled, Acanthocytes (Spur) Cancelled, Rouleaux Cancelled, Schistocytes Cancelled 12/07/21 21:09: PT Cancelled, INR Cancelled, APTT Cancelled 12/07/21 21:09: Sodium 134 L, Potassium 3.8, Chloride 103, Carbon Dioxide 23.0, Anion Gap 8, BUN 14, Creatinine 1.54 H, Estim Creat Clear Calc 46.09, Est GFR (MDRD) Af Amer 58 L, Est GFR (MDRD) Non-Af 48 L, BUN/Creatinine Ratio 9.1 L, Glucose 149 H, Calcium 7.9 L, Total Bilirubin 2.80 H, AST 56 H, ALT 35, Alkaline Phosphatase 99, Total Protein 5.0 L, Albumin 2.2 L, Globulin 2.8, Albumin/Globulin Ratio 0.8 L, Lipase 206 12/07/21 21:09: Ammonia 41.0 H 12/07/21 21:09: Lactic Acid 1.5 12/07/21 21:30: PT 18.8 H, INR 1.6, APTT 32.8 12/07/21 21:53: WBC 5.5, RBC 2.63 L, Hgb 5.6 L*, Hct 18.7 L, MCV 71.1 L, MCH 21.3 L, MCHC 29.9 L, RDW Std Deviation 40.3, RDW Coeff of Maria R 15.6 H, Plt Count 37 L*, Immature Gran % (Auto) 0.700, Neut % (Auto) 88.6 H, Lymph % (Auto) 3.6 L, Laurens % (Auto) 6.5, Eos % (Auto) 0.4, Baso % (Auto) 0.2, Absolute Neuts (auto) 4.9, Absolute Lymphs (auto) 0.20 L, Nucleated RBC % 0, Differential Comment SCANNED, Diff Path Review May foll 12/07/21 21:53: Immature Plt Fraction 9.8 H, Retic Count 2.86 H, Immature Retic Fraction 25.20 H, Retic Hgb Equivalent 16.5 L 12/07/21 21:53: Iron 14 L, TIBC 422, Iron Saturation 3.3 L, Ferritin 12 L, Folate 13.20 12/07/21 22:15: Urine Color Yellow, Urine Clarity Clear, Urine pH 6.0, Ur Specific Franklin 1.010, Urine Protein Negative, Urine Glucose (UA) Normal, Urine Ketones Negative, Urine Occult Blood Negative, Urine Nitrite Negative, Urine Bilirubin Negative, Urine Urobilinogen Normal, Ur Leukocyte Esterase 25 H, Urine RBC 0 SEEN, Urine WBC 0-5 SEEN, Ur Squamous Epith Cells 0 SEEN, Urine Bacteria RARE, Urine Mucus 0 SEEN 12/07/21 22:40: Blood Type A POSITIVE, Antibody Screen NEGATIVE, Crossmatch See Detail 12/08/21 05:31: Sodium 133 L, Potassium 3.7, Chloride 105, Carbon Dioxide 22.0, Anion Gap 6, BUN 16, Creatinine 1.45 H, Estim Creat Clear Calc 48.95, Est GFR (MDRD) Af Amer 62, Est GFR (MDRD) Non-Af 51 L, BUN/Creatinine Ratio 11.0, Glucose 125 H, Calcium 7.6 L 12/08/21 05:31: Ammonia 68.0 H Micro: Microbiology 12/07/21 22:46 Stool Stool Occult Blood (SASHA) - Final 12/07/21 20:55 Nasal Secretion SARS-CoV-2 & FLU Antigen (Rapid) - Final Radiography Diagnostic Testing: Radiology Impression Chest X-Ray 12/07/21 23:00 IMPRESSION: Normal x-ray examination of the chest. Electronically Signed: Jesus Germain DO at 23:34 EDT , Physical Exam Const alert and no apparent distress Resp normal respiratory effort Cardio regular rate, regular rhythm, S1 normal heart sound and S2 normal heart sound GI normal to inspection, nondistended, normoactive bowel sounds GI Narrative: Distended but not taut. Extremity normal to inspection Assessment & Plan Assessment/Plan (1) Fever: PLAN: Transient since resolved. Initial concern was for spontaneous bacterial peritonitis Fluid white blood cells are 61 therefore not suggesting spontaneous bacterial peritonitis. I had ordered Pipracil/tazobactam but given that that looks unremarkable I will discontinue that and will observe. (2) Lethargy: (3) Hepatic encephalopathy: PLAN: Metabolic/toxic encephalopathy secondary to ammonia but also due to the patient's underlying fever. Patient appears to be back to his baseline. (4) Pancytopenia: (5) Anemia: PLAN: Acute blood loss anemia Patient's hemoglobin went from 8.8 on October 31-5.6 yesterday. Patient was transfused 2 units of packed red blood cells Hemoglobin is currently 7.3. Hold off any additional transfusions at this time. 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 Had a very long conversation with the patient and his and I recommended gastroenterology evaluation for endoscopy. Patient was initially hesitant as he does have endoscopy planned for February at [facility]. Patient is in agreement. I did discuss the case with Dr. Storm who will see the patient in consultation. PLAN: Plan Pancytopenia Hemoglobin of 5.6. Emergent department doctor reports brown stools on rectal examination. Occult stools ordered the ED, follow. 2 units of packed red blood cells ordered. With potential for paracentesis 1 unit of platelets ordered at emergency department. Iron studies; reticulocyte; vitamin B12 and folic acid ordered. Iron studies point towards iron deficiency anemia. Cirrhosis of ascites Stable Torsemide and triamterene continued. Patient had 3950 cc of fluid removed today. No need for abdomen at this time. HTN Stable. Antihypertensive continued as above. Trend BP CKD Stage 3b Stable Trend BMP DVT prophylaxis: Not a candidate for chemical thromboprophylaxis secondary to thrombocytopenia., SCD ordered. Greater than 60 minutes of which greater than 50% of the time was discussing with the patient and his about his anemia, the recommendation for endoscopy, his rights to refuse any potential intervention. Charges/Coding Visit Charges Inpatient E&M: 56231 Subs Hosp L3
[2021-12-08 08:22] LABS: Absolute Lymphocyte Count 0.37 X10^3/uL (0.83-4.51); Absolute Neutrophil Count 3.1 X10^3/uL (2.0-7.7); Basophil# 0.01 X10^3/uL; Basophil% 0.2 % (0-1); Eosinophil# 0.07 X10^3/uL; Eosinophils% 1.7 % (0-5); Hematocrit 23.6 % (40-54); Hemoglobin 7.3 g/dL (13.0-16.5); Lymphocyte # 0.37 X10^3/ul (0.83-4.51); Lymphocyte % 9.2 % (19-41); Mean Corp Hgb Conc 30.9 g/dL (32-36); Mean Corpuscular Volume 74.2 fL (80-94); Monocyte% 12.4 % (0-10); NRBC Flagged by Analyzer 0 % (0-5); Neutrophil # 3.07 X10^3/uL (2.7-7.7); Neutrophil % 76.3 % (47-70); POSITIVE COUNT YES; POSITIVE DIFFERENTIAL YES; POSITIVE MORPHOLOGY YES; Platelet Count 41 K/mm3 (150-450); RBC Distribution Width SD 43.3 fl (35.1-43.9); Red Blood Count 3.18 M/mm3 (4.6-6.2)
[2021-12-08 08:29] LABS: International Normalized Ratio 1.6
[2021-12-08 08:44] LABS: Pathologist Review Reviewed
[2021-12-08 08:46] LABS: Vitamin B12 1498 pg/mL (211-911)
[2021-12-08 08:51] LABS: Differential Indicated SCAN CRITERIA MET
[2021-12-08 08:53] LABS: Hypochromasia 1+; Platelet Estimate MKD DEC (ADEQ)
[2021-12-08] MEDS: Lactulose 20 GM/30 ML UDC PO ×2 (10:42→21:18)
[2021-12-08] MEDS: Multivitamins,Therapeutic Tablet 1 TABLET PO (10:42)
[2021-12-08] MEDS: Furosemide 40 MG Tablet PO (10:42)
[2021-12-08] MEDS: Potassium Chloride Oral Tablet 20 MEQ PO (10:42)
--- NOTE | 2021-12-08 13:35 | FLU_PTH ---
PATIENT: ALYSE PERDOMO LOC: [facility] U#:[id number] AGE/SX: 71/M ROOM: [facility] RE12/08/[address]: Dr. Sb Luna DO : 1950 BED: 1 DIS: 12/11/2021 SPEC #: [id number] RECD: 12/08/21 13:46 STATUS: JAD FELDMAN #: [id number] GERALDO: 12/08/21 13:[address]: Sb Luna DEPT: CYTOLOGY RECD BY: Camille Mcfarlane ENTERED: 12/09/21 08:55 SP TYPE: Fluid OTHR DR: MD Dr. Josse Cook MD Tissues: PARACENTESIS FLUID Procedures: Special Stain Group II Surgery Specimen Level IV Cytospin Fluid HEADER OPERATION: Not noted PRE-OP DIAGNOSIS: Fever, pancytopenia TISSUE SUBMITTED: Paracentesis fluid for cytology DIAGNOSIS CYTOLOGY Paracentesis fluid for cytology (cytospin and cell block): Negative for malignant cells. See comment. SJ:rg 12/12/2021 COMMENT Clinical correlation and appropriate follow up are necessary. CYTOLOGY STUDY Slides are reviewed. CYTOLOGY GROSS Received is 90 ml of light yellow cloudy fluid labeled with the patient's name and and designated per the requisition as paracentesis. Submitted for cytology preparation including cell block. / cc 12/09/21 TC:5 CPT: 19298, 36405
[2021-12-08] MEDS: Lidocaine 2% (10 ml mdv) 10 ML Vial INFILT (13:49)
[2021-12-08 14:23] LABS: Body Fluid Mononuclear WBC # 0.045 10^3/uL; Body Fluid Mononuclear WBC % 73.8 %; Body Fluid Polynuclear WBC # 0.016 10^3/uL; Body Fluid Polynuclear WBC % 26.2 %; Body Fluid Total Cells Counted 0.088 10^3/ul; White Blood Count/Body Fluid 0.061 10^3/uL
[2021-12-08 14:24] LABS: Auto B Fluid Analyzer BKGD Ct COUNTS W/IN LIMITS (W/IN LIMITS)
[2021-12-08 14:25] LABS: Appearance/Body Fluid SL CLDY; Color/Body Fluid YELLOW; Source- Body Fluid OTHER
--- NOTE | 2021-12-08 14:45 | CASEMGMT ---
RENETTA SORIANO Face to Face with patient for initial transition planning/care coordination assessment. RN CM introduced self and role at [facility]. Patient lying in bed, alert and oriented, at bedside. Patient willing to participate in assessment and is able to answer all questions appropriately. Care providers, pharmacy, and demographics verified. Patient wishes to discharge home, will monitor for HHC pending progress with therapy. Patient states he has no further needs or concerns at this time. CM to follow for discharge planning needs that may arise. PCP: Jose Alberto Specialists: BOZENA Odonnell; Deidra dehydrogenation converter helper; Vladimir Soto Preferred [facility]: [facility] Benefit: yes Living Will/HPOA: none LNOK: Living Arrangements: Patient lives with in a single story home with ramp to enter. Patient states he is independent at home. Transportation: self, DME/HHC: Patient has shower chair, raised toilet, cane, walker, wheelchair, grab bars, and pulse ox at home. Patient was just recently discharged from [facility] with [facility] and prefers them if he would need HHC again. No previous SNF. Disposition Plan: Patient to discharge home with famiy support and follow-up plans in place. Will monitor for HHC. Annie ESPINOSA, RENETTA, CM
[2021-12-08 15:11] LABS: Lymphocytes 22 %; Monocytes 32 %; Neutrophil (Segs) 36 %; Other Cell Type/BF 10 %
[2021-12-08 15:12] LABS: Body Fluid QC Type(s) BF1Q; Red Cell Count/Body Fluid 11 /mm3
--- NOTE | 2021-12-08 15:54 | CHAPLAIN ---
Type of Pastoral Visit _x__ Initial Visit ___ Follow-up Visit ___ On-call Visit ___ General Patient Visit ___ Spiritual Assessment ___ Family Conference ___ Bereavement ___ Rapid Response ___ Code Blue ___ Other (describe below) Pastoral Care Referral From _x__ Patient ___ Family ___ Nurse ___ Physician ___ Cytogenetics Laboratory Manager _x__ Mattress Inspector ___ Other (describe below) Sacrament/Intervention _x__ Active listening ___ Anointing ___ Baptist ___ Bereavement ___ Communion _x__ Kelly exploration ___ _x__ Life review _x__ Prayer ___ Reconciliation ___ Sacrament of Sick _x__ Supportive presence ___ Wedding ___ Other (describe below) Pastoral Comments Call from CM as patient inquired about spiritual care support; met with patient and spouse; pt has life threatening condition and has questions of spiritual nature; there was much review of life and then responding to the spiritual concerns of patient; spouse also given support and offer of ongoing care as needed; pt requested prayers and stated that the conversation was very helpful and appreciated.
--- NOTE | 2021-12-08 16:51 | PCM.CONS.GEN ---
Assessment & Plan Assessment/Plan (1) Fever: PLAN: Patient is on antibiotic therapy and has been afebrile since being in the hospital. (2) Anemia: PLAN: The differential diagnosis for his acute worsening anemia would be variceal bleed (esophageal, gastric or duodenal), portal gastropathy, peptic ulcer disease, stress gastritis. Patient undergoing upper endoscopy to evaluate his upper GI tract. 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 He is not showing signs of decompensation at this time. He is not encephalopathic. He is not having much ascites. He has no hepatic hydrothorax. (4) Pancytopenia: PLAN: Pancytopenia secondary to cirrhosis. No need to administer platelets or Neupogen at this time. I would not transfuse unless hemoglobin is less than 7. HPI Consult Data Date of Consult: 12/08/21 HPI Narrative Reason for Consultation: Anemia HPI Narrative: ALYSE PERDOMO, is a 71 M who presents from home with worsening confusion. Patient presents with a fever that began today.? also states the patient is confused at times.? 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 Patient also was recently admitted for urinary tract infection.? states that he was very confused with his urinary tract infection at that time.? states patient had a temperature up to 102.2 at home.? Patient has not taken any Tylenol or ibuprofen at home.? Patient admits to some mild back pain but denies any neck pain.? Patient denies any cough.? Patient denies any urinary complaints. Patient was previously on a transplant list but he took himself off transplant list. Recently he was treated for UTI (10/30/21 to 10/31/21) He has chronic pain in multiple joints. 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 He has not had any problems with ascites, severe encephalopathy, GI bleeding (but he does get empiric esophageal banding), gastric varices, rectal bleeding from rectal veins. Today his hemoglobin is down to 7.4 with a platelet count of 41 and a white blood cell count of 2.8. History of. Pancytopenia secondary to cirrhosis I was asked to see him due to his worsening anemia.. [facility] Medical History Former smoker Leukopenia Liver cirrhosis Thrombocytopenia Home Medications finasteride 5 mg tablet 5 mg PO QODAY Check with primary doctor 06/18/18 [History Last Taken 12/07/21] milk thistle 500 mg capsule 2,000 mg PO BID Check with primary doctor 06/18/18 [History Last Taken 12/07/21] multivitamin with folic acid 400 mcg tablet (Thera) 1 tab PO DAILY Check with primary doctor 06/18/18 [History Last Taken 12/07/21] omeprazole 20 mg capsule,delayed release 20 mg PO DAILY Check with primary doctor 06/18/18 [History Last Taken 12/07/21] potassium chloride 10 mEq tablet,extended release(part/cryst) 20 meq PO DAILY 06/18/18 [History Last Taken 12/07/21] torsemide 20 mg tablet 20 mg PO DAILY Check with primary doctor 10/29/21 [History Last Taken 12/07/21] triamterene 100 mg capsule 100 mg PO DAILY 10/29/21 [History Last Taken 12/07/21] tamsulosin 0.4 mg capsule 0.4 mg PO 12/08/21 [History Last Taken 12/07/21] Allergy/AdvReac Type Severity Reaction Status Date / Time mushroom Allergy Unknown Verified 12/07/21 20:22 nabumetone [From Relafen] Allergy Other Verified 12/07/21 20:22 naproxen [From Naprosyn] Allergy Other Verified 12/07/21 20:22 Family History Other Diabetes Hypertension Surgical History Hx of aortic valve replacement Hx of CABG Hx of carpal tunnel repair Hx of shoulder surgery Social History Smoking Status: Never smoker Smokeless tobacco user: chewing tobacco substance use type: does not use ROS Constitutional Constitutional: Reports chills, fever(s) and malaise; Denies anorexia, change in weight or fatigue Cardiovascular Cardiovascular: Denies chest pain, edema, orthopnea or palpitations Respiratory/Chest Respiratory/Chest: Denies cough, shortness of breath at rest, shortness of breath with exertion or wheezing Gastrointestinal Gastrointestinal: Denies abdominal pain, constipation, diarrhea, nausea or vomiting Genitourinary Genitourinary: Reports dysuria and urinary incontinence Musculoskeletal Musculoskeletal: Denies back pain, extremity pain or joint pain Integumentary Integumentary: Denies dry skin Neurologic Neurologic: Reports confusion and weakness; Denies abnormal gait, abnormal speech or dizziness Psychiatric Psychiatric: Denies anxiety or depression Endocrine Endocrinology: Denies change in body appearance Hematologic/Lymphatic Hematologic/Lymphatic: Denies anemia Physical Exam Const alert and no apparent distress Resp normal respiratory effort Cardio regular rate, regular rhythm, S1 normal heart sound and S2 normal heart sound GI normal to inspection, nondistended, normoactive bowel sounds GI Narrative: Distended but not taut. Extremity normal to inspection Lab / Micro Data Result Diagrams: 12/08/21 08:03 12/08/21 05:31 Labs: Laboratory Results - last 24 hr 12/07/21 21:09: WBC Cancelled, Corrected WBC Cancelled, RBC Cancelled, Hgb Cancelled, Hct Cancelled, MCV Cancelled, MCH Cancelled, MCHC Cancelled, RDW Std Deviation Cancelled, RDW Coeff of Maria R Cancelled, Plt Count Cancelled, MPV Cancelled, Immature Gran % (Auto) Cancelled, Neut % (Auto) Cancelled, Lymph % (Auto) Cancelled, [place] % (Auto) Cancelled, Eos % (Auto) Cancelled, Baso % (Auto) Cancelled, Absolute Neuts (auto) Cancelled, Absolute Lymphs (auto) Cancelled, Total Counted Cancelled, Neutrophils % (Manual) Cancelled, Band Neutrophils % Cancelled, Lymphocytes % (Manual) Cancelled, Monocytes % (Manual) Cancelled, Eosinophils % (Manual) Cancelled, Basophils % (Manual) Cancelled, Metamyelocytes % Cancelled, Myelocytes % Cancelled, Promyelocytes % Cancelled, Blast Cells % Cancelled, Plasma Cell % (Manual) Cancelled, Other Cells % Cancelled, Nucleated RBC % Cancelled, Nucleated RBCs/100 WBC Cancelled, Differential Comment Cancelled, Diff Path Review Cancelled, Hypersegmented Neuts Cancelled, Atypical Lymphocytes Cancelled, Reactive Lymphocytes Cancelled, Smudge Cells Cancelled, Toxic Granulation Cancelled, Toxic Vacuolation Cancelled, Dohle Bodies Cancelled, Rena Rods Cancelled, Platelet Estimate Cancelled, Plt Morphology Comment Cancelled, RBC Morphology Cancelled, Polychromasia Cancelled, Hypochromasia Cancelled, Poikilocytosis Cancelled, Basophilic Stippling Cancelled, Anisocytosis Cancelled, Microcytosis Cancelled, Macrocytosis Cancelled, Spherocytes Cancelled, Sickle Cells Cancelled, Target Cells Cancelled, Tear Drop Cells Cancelled, Ovalocytes Cancelled, Stomatocytes Cancelled, Marsh[employer] Bodies Cancelled, [place] Cells Cancelled, Bite Cells Cancelled, Crenated Cell Cancelled, Acanthocytes (Spur) Cancelled, Rouleaux Cancelled, Schistocytes Cancelled 12/07/21 21:09: PT Cancelled, INR Cancelled, APTT Cancelled 12/07/21 21:09: Sodium 134 L, Potassium 3.8, Chloride 103, Carbon Dioxide 23.0, Anion Gap 8, BUN 14, Creatinine 1.54 H, Estim Creat Clear Calc 46.09, Est GFR (MDRD) Af Amer 58 L, Est GFR (MDRD) Non-Af 48 L, BUN/Creatinine Ratio 9.1 L, Glucose 149 H, Calcium 7.9 L, Total Bilirubin 2.80 H, AST 56 H, ALT 35, Alkaline Phosphatase 99, Total Protein 5.0 L, Albumin 2.2 L, Globulin 2.8, Albumin/Globulin Ratio 0.8 L, Lipase 206 12/07/21 21:09: Ammonia 41.0 H 12/07/21 21:09: Lactic Acid 1.5 12/07/21 21:30: PT 18.8 H, INR 1.6, APTT 32.8 12/07/21 21:53: WBC 5.5, RBC 2.63 L, Hgb 5.6 L*, Hct 18.7 L, MCV 71.1 L, MCH 21.3 L, MCHC 29.9 L, RDW Std Deviation 40.3, RDW Coeff of Maria R 15.6 H, Plt Count 37 L*, Immature Gran % (Auto) 0.700, Neut % (Auto) 88.6 H, Lymph % (Auto) 3.6 L, [place] % (Auto) 6.5, Eos % (Auto) 0.4, Baso % (Auto) 0.2, Absolute Neuts (auto) 4.9, Absolute Lymphs (auto) 0.20 L, Nucleated RBC % 0, Differential Comment SCANNED, Diff Path Review Reviewed 12/07/21 21:53: Immature Plt Fraction 9.8 H, Retic Count 2.86 H, Immature Retic Fraction 25.20 H, Retic Hgb Equivalent 16.5 L 12/07/21 21:53: Iron 14 L, TIBC 422, Iron Saturation 3.3 L, Ferritin 12 L, Folate 13.20 12/07/21 22:15: Urine Color Yellow, Urine Clarity Clear, Urine pH 6.0, Ur Specific [place] 1.010, Urine Protein Negative, Urine Glucose (UA) Normal, Urine Ketones Negative, Urine Occult Blood Negative, Urine Nitrite Negative, Urine Bilirubin Negative, Urine Urobilinogen Normal, Ur Leukocyte Esterase 25 H, Urine RBC 0 SEEN, Urine WBC 0-5 SEEN, Ur Squamous Epith Cells 0 SEEN, Urine Bacteria RARE, Urine Mucus 0 SEEN 12/07/21 22:40: Blood Type A POSITIVE, Antibody Screen NEGATIVE, Crossmatch See Detail 12/08/21 05:31: Sodium 133 L, Potassium 3.7, Chloride 105, Carbon Dioxide 22.0, Anion Gap 6, BUN 16, Creatinine 1.45 H, Estim Creat Clear Calc 48.95, Est GFR (MDRD) Af Amer 62, Est GFR (MDRD) Non-Af 51 L, BUN/Creatinine Ratio 11.0, Glucose 125 H, Calcium 7.6 L 12/08/21 05:31: Ammonia 68.0 H 12/08/21 08:03: Vitamin B12 1498 H 12/08/21 08:03: PT 19.0 H, INR 1.6 12/08/21 08:03: WBC 4.0 L, RBC 3.18 L, Hgb 7.3 L, Hct 23.6 L, MCV 74.2 L, MCH 23.0 L, MCHC 30.9 L, RDW Std Deviation 43.3, RDW Coeff of Maria R 16.0 H, Plt Count 41 L*, Immature Gran % (Auto) 0.200, Neut % (Auto) 76.3 H, Lymph % (Auto) 9.2 L, [place] % (Auto) 12.4 H, Eos % (Auto) 1.7, Baso % (Auto) 0.2, Absolute Neuts (auto) 3.1, Absolute Lymphs (auto) 0.37 L, Nucleated RBC % 0, Platelet Estimate MKD DEC, Hypochromasia 1+ 12/08/21 13:35: Fluid Source OTHER, Fluid Color YELLOW, Fluid Appearance SL CLDY, Fluid WBC 0.061, Fluid RBC 11, Fluid Tot Cell Count 0.088, Fld Polynuclear WBCs # 0.016, Fld Polynuclear WBCs % 26.2, Fluid Mononuclear WBCs 0.045, Fld Mononuclear WBCs % 73.8, Fluid Neutrophils 36, Fluid Lymphocytes 22, Fluid Monocytes 32, Fluid Other Cells 10, Fl Pathologist Comment May follow, Fluid Comment 2 SEE COMMENT Micro: Microbiology 12/08/21 13:35 Fluid - Paracentesis (Abd) Gram Stain - Final 12/07/21 22:46 Stool Stool Occult Blood (SASHA) - Final 12/07/21 20:55 Nasal Secretion SARS-CoV-2 & FLU Antigen (Rapid) - Final Radiology Impression Chest X-Ray 12/07/21 23:00 IMPRESSION: Normal x-ray examination of the chest. Electronically Signed: Jesus Germain DO at 23:34 EDT , Paracentesis Ultrasound 12/08/21 00:32 IMPRESSION: Ultrasound guided paracentesis. Electronically Signed: Rene Bridges MD at 14:26 EDT ,
[2021-12-09] VITALS (20 sets, daily range): BP systolic 118–154; BP diastolic 62–82; PULSE 72–92; RESP 16–18; TEMP 36.6–36.9; O2SAT 96–100
--- NOTE | 2021-12-09 05:55 | EKG12_ITS ---
Test Reason : pre-op Blood Pressure : / mmHG Vent. Rate : 081 BPM Atrial Rate : 081 BPM P-R Int : 184 ms QRS Dur : 082 ms QT Int : 388 ms P-R-T Axes : 050 -01 085 degrees QTc Int : 450 ms Sinus rhythm with occasional Premature ventricular complexes and Premature atrial complexes Septal infarct , age undetermined Abnormal ECG Confirmed by SRAVANI STACK, GINA ([id number]), senior technical editor EV ZARCO ([id number]) on 12/12/2021 9:05:02 AM Referred By: [facility] Confirmed By:GINA LASSITER MD
[2021-12-09 06:44] LABS: Absolute Lymphocyte Count 0.42 X10^3/uL (0.83-4.51); Absolute Neutrophil Count 2.2 X10^3/uL (2.0-7.7); Eosinophil# 0.05 X10^3/uL; Eosinophils% 1.7 % (0-5); Hematocrit 22.6 % (40-54); Hemoglobin 6.9 g/dL (13.0-16.5); Lymphocyte # 0.42 X10^3/ul (0.83-4.51); Lymphocyte % 13.9 % (19-41); Mean Corp Hgb Conc 30.5 g/dL (32-36); Mean Corpuscular Hgb 22.7 pg (27.0-32.0); Mean Corpuscular Volume 74.3 fL (80-94); Monocyte# 0.38 X10^3/uL; Monocyte% 12.5 % (0-10); NRBC Flagged by Analyzer 0 % (0-5); Neutrophil # 2.17 X10^3/uL (2.7-7.7); Neutrophil % 71.6 % (47-70); POSITIVE COUNT YES; POSITIVE DIFFERENTIAL YES; RBC Distribution Width SD 43.2 fl (35.1-43.9); Red Blood Count 3.04 M/mm3 (4.6-6.2)
[2021-12-09 06:49] LABS: Platelet Count 38 K/mm3 (150-450)
[2021-12-09 06:50] LABS: Differential Indicated SCAN CRITERIA MET
[2021-12-09 06:58] LABS: International Normalized Ratio 1.6; Partial Thromboplast Time 34.6 Seconds (24.1-36.2)
[2021-12-09 07:03] LABS: Differential Comment SCANNED; Platelet Estimate MKD DEC (ADEQ)
[2021-12-09 07:08] LABS: Hypochromasia 2+
[2021-12-09 07:14] LABS: ALB/GLOB Ratio 0.7 RATIO (0.9-2.4); AST(SGOT) 36 U/L (15-37); Alanine Aminotransfer ALT/SGPT 29 U/L (16-61); Albumin, Serum 1.9 g/dL (3.2-5.0); Alkaline Phosphatase 87 U/L (45-117); Anion Gap 5 (5-15); BUN 14 mg/dL (7-18); BUN/Creat Ratio 10.2 RATIO (10-20); Calcium,Total 7.4 mg/dL (8.5-10.1); Chloride 105 mmol/L (98-107); Creatinine, Serum 1.37 mg/dL (0.70-1.30); EST Glomerular Filtration Rate 55 mL/min (>60); Est Glom Filt Rate - Afr Amer 66 mL/min (>60); Globulin 2.8 g/dL (2.2-4.2); Glucose 111 mg/dL (74-106); Magnesium 2.2 mg/dL (1.6-2.6); Phosphorus 2.4 mg/dL (2.5-4.9); Potassium 3.7 mmol/L (3.5-5.1); Protein, Total 4.7 g/dL (6.4-8.2); Sodium Level 135 mmol/L (136-145)
--- NOTE | 2021-12-09 08:17 | PCM.PN.HOSP ---
Subjective Subjective No new events. Objective Data Objective Data Vital Signs: Vital Signs Temp Pulse Resp BP Pulse Ox O2 Del Method 36.6 C 81 16 122/72 H 99 Room Air 12/09/21 06:27 12/09/21 06:27 12/09/21 06:27 12/09/21 06:27 12/09/21 07:18 12/09/21 07:18 Oxygen Delivery Method [2] Room Air Oxygen Delivery Method [1 ( Room Air Initial Baseline)] Oxygen Delivery Method Room Air Weight: 92.2 kg Body Mass Index (BMI) 29.1 Intake & Output: Intake and Output for Last 24 Hours 12/07/21 12/08/21 12/09/21 23:59 23:59 23:59 Intake Total 1630 / 1630 Output Total 8250 / 8250 Balance -6620 / -6620 - Lab / Micro Data Result Diagrams: 12/09/21 05:55 12/09/21 05:55 Labs: Laboratory Results - last 24 hr 12/07/21 21:53: Diff Path Review Reviewed 12/08/21 08:03: Vitamin B12 1498 H 12/08/21 08:03: PT 19.0 H, INR 1.6 12/08/21 08:03: WBC 4.0 L, RBC 3.18 L, Hgb 7.3 L, Hct 23.6 L, MCV 74.2 L, MCH 23.0 L, MCHC 30.9 L, RDW Std Deviation 43.3, RDW Coeff of Maria R 16.0 H, Plt Count 41 L*, Immature Gran % (Auto) 0.200, Neut % (Auto) 76.3 H, Lymph % (Auto) 9.2 L, [place] % (Auto) 12.4 H, Eos % (Auto) 1.7, Baso % (Auto) 0.2, Absolute Neuts (auto) 3.1, Absolute Lymphs (auto) 0.37 L, Nucleated RBC % 0, Diff Path Review May rosita, Platelet Estimate MKD DEC, Hypochromasia 1+ 12/08/21 13:35: Fluid Source OTHER, Fluid Color YELLOW, Fluid Appearance SL CLDY, Fluid WBC 0.061, Fluid RBC 11, Fluid Tot Cell Count 0.088, Fld Polynuclear WBCs # 0.016, Fld Polynuclear WBCs % 26.2, Fluid Mononuclear WBCs 0.045, Fld Mononuclear WBCs % 73.8, Fluid Neutrophils 36, Fluid Lymphocytes 22, Fluid Monocytes 32, Fluid Other Cells 10, Fl Pathologist Comment May follow, Fluid Comment 2 SEE COMMENT 12/09/21 05:55: WBC 3.0 L, RBC 3.04 L, Hgb 6.9 L, Hct 22.6 L, MCV 74.3 L, MCH 22.7 L, MCHC 30.5 L, RDW Std Deviation 43.2, RDW Coeff of Maria R 16.0 H, Plt Count 38 L*, MPV TNP, Immature Gran % (Auto) 0.300, Neut % (Auto) 71.6 H, Lymph % (Auto) 13.9 L, [place] % (Auto) 12.5 H, Eos % (Auto) 1.7, Baso % (Auto) 0.0, Absolute Neuts (auto) 2.2, Absolute Lymphs (auto) 0.42 L, Nucleated RBC % 0, Differential Comment SCANNED, Diff Path Review August foll, Platelet Estimate MKD DEC, Hypochromasia 2+ 12/09/21 05:55: PT 19.0 H, INR 1.6, APTT 34.6 12/09/21 05:55: Sodium 135 L, Potassium 3.7, Chloride 105, Carbon Dioxide 25.0, Anion Gap 5, BUN 14, Creatinine 1.37 H, Estim Creat Clear Calc 51.80, Est GFR (MDRD) Af Amer 66, Est GFR (MDRD) Non-Af 55 L, BUN/Creatinine Ratio 10.2, Glucose 111 H, Calcium 7.4 L, Phosphorus 2.4 L, Magnesium 2.2, Total Bilirubin 3.60 H, AST 36, ALT 29, Alkaline Phosphatase 87, Total Protein 4.7 L, Albumin 1.9 L, Globulin 2.8, Albumin/Globulin Ratio 0.7 L Micro: Microbiology 12/08/21 13:35 Fluid - Paracentesis (Abd) Gram Stain - Final 12/07/21 22:46 Stool Stool Occult Blood (SASHA) - Final 12/07/21 20:55 Nasal Secretion SARS-CoV-2 & FLU Antigen (Rapid) - Final Radiography Diagnostic Testing: Radiology Impression Paracentesis Ultrasound 12/08/21 00:32 IMPRESSION: Ultrasound guided paracentesis. Electronically Signed: Rene Bridges MD at 14:26 EDT , Physical Exam Const alert and no apparent distress Constitutional Narrative: Up at the side of bed. Resp normal respiratory effort, no retractions, no use of accessory muscles and clear to auscultation bilaterally Cardio regular rate, regular rhythm and S1 normal heart sound GI normal to inspection, nondistended, normoactive bowel sounds, soft to palpation, non-tender and non-distended Psych affect normal Assessment & Plan Assessment/Plan (1) Fever: QUALIFIERS: Fever type: unspecified Qualified Code(s): R50.9 - Fever, unspecified PLAN: Transient since resolved. Initial concern was for spontaneous bacterial peritonitis Fluid white blood cells are 61 therefore not suggesting spontaneous bacterial peritonitis. I had ordered Pipracil/tazobactam but given that that looks unremarkable I will discontinue that and will observe. Repeat fever again last night. Testing so far shows negative COVID, white blood cells were low on the paracentesis so doubtful SBP, urine culture negative, blood cultures pending. (2) Hepatic encephalopathy: PLAN: Resolved Metabolic/toxic encephalopathy secondary to ammonia but also due to the patient's underlying fever. Patient appears to be back to his baseline. (3) Anemia: PLAN: Acute blood loss anemia Patient's hemoglobin went from 8.8 on October 31-5.6 yesterday. Patient was transfused 2 units of packed red blood cells Hemoglobin is currently 7.3. Hold off any additional transfusions at this time. 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 Had a very long conversation with the patient and his and I recommended gastroenterology evaluation for endoscopy. Patient was initially hesitant as he does have endoscopy planned for February at [facility] [place]. Patient is in agreement. Plan for EGD today Hemoglobin 6.9, will transfuse 1 unit packed red blood cells. EGD performed 12/09: Normal esophagus, erythematous mucosa in the antrum, GAVE with bleeding treated with argon plasma coagulation. Plan for colonoscopy on (4) Pancytopenia: PLAN: Chronic Pancytopenia Hemoglobin of 5.6. Emergent department doctor reports brown stools on rectal examination. Occult stools ordered the ED, follow. 2 units of packed red blood cells ordered. With potential for paracentesis 1 unit of platelets ordered at emergency department. Iron studies; reticulocyte; vitamin B12 and folic acid ordered. Iron studies point towards iron deficiency anemia (5) Ascites: PLAN: Secondary to cirrhosis Patient had 3950 cc of fluid removed today. No need for abdomen at this time. Will change his diuretics to furosemide and spironolactone PLAN: Plan HTN Stable. Antihypertensive continued as above. Trend BP CKD Stage 3b Stable Trend BMP DVT prophylaxis: Not a candidate for chemical thromboprophylaxis secondary to thrombocytopenia., SCD ordered. Discussed with patient's at bedside Charges/Coding Visit Charges Inpatient E&M: 92749 Subs Hosp L2
[2021-12-09 11:10] LABS: Bedside Glucose 98 mg/dL (74-106)
--- NOTE | 2021-12-09 12:39 | OP.EGD_ITS ---
Patient Name: Herb Salazar Procedure Date: 12/09/2021 11:52 AM Date of : 1950 Age: 71 Procedure: Upper GI endoscopy Indications: Iron deficiency anemia Providers: Jagjit Storm DO Medicines: Monitored Anesthesia Care Patient Profile: This is a 71 year old male. Refer to note in patient chart for documentation of history and physical. Patient has symptoms. He is status post EGD for treatment of bleeding. Complications: No immediate complications. Procedure: Pre-Anesthesia Assessment: - Prior to the procedure, a History and Physical was performed, and patient medications and allergies were reviewed. The patient is competent. The risks and benefits of the procedure and the sedation options and risks were discussed with the patient. All questions were answered and informed consent was obtained. Patient identification and proposed procedure were verified by the physician in the pre-procedure area. Mental Status Examination: alert and oriented. Airway Examination: normal oropharyngeal airway and neck mobility. Respiratory Examination: clear to auscultation. CV Examination: normal. Prophylactic Antibiotics: The patient does not require prophylactic antibiotics. Prior Anticoagulants: The patient has taken aspirin, last dose was 1 day prior to procedure. ASA Grade Assessment: II - A patient with mild systemic disease. After reviewing the risks and benefits, the patient was deemed in satisfactory condition to undergo the procedure. The anesthesia plan was to use moderate sedation / analgesia (conscious sedation). Immediately prior to administration of medications, the patient was re-assessed for adequacy to receive sedatives. The heart rate, respiratory rate, oxygen saturations, blood pressure, adequacy of pulmonary ventilation, and response to care were monitored throughout the procedure. The physical status of the patient was re-assessed after the procedure. After obtaining informed consent, the endoscope was passed under direct vision. Throughout the procedure, the patient's blood pressure, pulse, and oxygen saturations were monitored continuously. The gastroscope was introduced through the mouth, and advanced to the second part of duodenum. The upper GI endoscopy was accomplished without difficulty. The patient tolerated the procedure well. Scope In: 11:58:19 AM Scope Out: 12:09:38 PM Total Procedure Duration Time 0 hours 11 minutes 19 seconds Findings: The examined esophagus was normal. Diffuse severely erythematous mucosa without bleeding was found in the gastric antrum. 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 Coagulation for bleeding prevention using argon plasma at 0.3 liters/minute and 30 guy was successful. Estimated blood loss was minimal. The second portion of the duodenum was normal. Impression: - Normal esophagus. - Erythematous mucosa in the antrum. - Gastric antral vascular ectasia with bleeding. Treated with argon plasma coagulation (APC). - Normal second portion of the duodenum. - No specimens collected. Recommendation: - Return patient to [facility] for ongoing care. - Continue present medications. - Colonoscopy Procedure Code(s): --- Professional --- 63359, Esophagogastroduodenoscopy, flexible, transoral; with control of bleeding, any method CPT copyright 2017 [employer]. All rights reserved. The codes documented in this report are preliminary and upon icd 9 coder review may be revised to meet current compliance requirements. Jagjit Storm DO 12/09/2021 12:39:34 PM This report has been signed electronically. Number of Addenda: 1 Note Initiated On: 12/09/2021 11:52 AM Addendum Number: 1 Addendum Date: 01/26/2022 6:12:05 AM MAC was used as sedation for this procedure. Jagjit Storm DO 01/26/2022 6:12:09 AM This report has been signed electronically.
--- NOTE | 2021-12-09 12:40 | OP.CCLET_ITS ---
01/26/2022 Josse Abrams [address] [place] [address] Re : Upper GI endoscopy procedure for Herb Salazar Dear Dr. Abrams This procedure was performed on Thursday, December 09, 2021. My impressions and recommendations are as follows: Impressions : - Normal esophagus. - Erythematous mucosa in the antrum. - Gastric antral vascular ectasia with bleeding. Treated with argon plasma coagulation (APC). - Normal second portion of the duodenum. - No specimens collected. Recommendations : - Return patient to hospital [facility] for ongoing care. - Continue present medications. - Colonoscopy My findings are described in the full procedure note, which is enclosed. If I can be of further assistance, please feel free to contact me at . Sincerely, Jagjit Storm, 12/09/2021 12:39:34 PM This report has been signed electronically.
[2021-12-09] MEDS: Multivitamins,Therapeutic Tablet 1 TABLET PO (13:42)
[2021-12-09] MEDS: Potassium Chloride Oral Tablet 20 MEQ PO (13:42)
[2021-12-09] MEDS: Lactulose 20 GM/30 ML UDC PO ×2 (13:42→21:14)
[2021-12-09] MEDS: Furosemide 40 MG Tablet PO ×2 (13:42→13:44)
[2021-12-09] MEDS: Finasteride 5 MG Tablet PO (13:42)
[2021-12-09] MEDS: Bisacodyl 5 MG Tablet 20 MG PO (13:45)
[2021-12-09] MEDS: Spironolactone 50 MG Tablet PO (13:52)
[2021-12-09 14:13] LABS: Pathologist Comment/Body Fluid Reviewed
[2021-12-09] MEDS: Electrolyte Solution/Peg's 4000 ML PO (16:12)
[2021-12-09] MEDS: Ondansetron 4 MG/2 ML Vial IV (21:14)
[2021-12-09] MEDS: 0.9% Saline Lock 10 ML Syringe IV (21:17)
[2021-12-10] VITALS (12 sets, daily range): BP systolic 97–141; BP diastolic 70–80; PULSE 66–128; RESP 16–18; TEMP 36.4–37; O2SAT 99–100
--- NOTE | 2021-12-10 05:55 | EKG12_ITS ---
Test Reason : PRE-OP Blood Pressure : / mmHG Vent. Rate : 073 BPM Atrial Rate : 073 BPM P-R Int : 178 ms QRS Dur : 092 ms QT Int : 398 ms P-R-T Axes : 031 -11 098 degrees QTc Int : 438 ms Sinus rhythm with Premature supraventricular complexes Septal infarct , age undetermined ST & T wave abnormality, consider lateral ischemia Abnormal ECG Confirmed by SRAVANI STACK, GINA ([id number]), legal editor EV ZARCO ([id number]) on 12/14/2021 11:38:27 AM Referred By: CHINTAN Confirmed By:GINA LASSITER MD
[2021-12-10 06:11] LABS: Absolute Lymphocyte Count 0.24 X10^3/uL (0.83-4.51); Absolute Neutrophil Count 3.6 X10^3/uL (2.0-7.7); Hematocrit 26.3 % (40-54); Hemoglobin 8.4 g/dL (13.0-16.5); Lymphocyte # 0.24 X10^3/ul (0.83-4.51); Mean Corp Hgb Conc 31.9 g/dL (32-36); Mean Corpuscular Hgb 23.9 pg (27.0-32.0); Mean Corpuscular Volume 74.7 fL (80-94); Monocyte# 0.21 X10^3/uL; Monocyte% 5.2 % (0-10); NRBC Flagged by Analyzer 0 % (0-5); Neutrophil # 3.55 X10^3/uL (2.7-7.7); Neutrophil % 88.6 % (47-70); POSITIVE COUNT YES; POSITIVE DIFFERENTIAL YES; RBC Distribution Width CV 16.9 % (11.6-14.6); Red Blood Count 3.52 M/mm3 (4.6-6.2)
[2021-12-10 06:16] LABS: Differential Indicated SCAN CRITERIA MET
[2021-12-10 06:18] LABS: Platelet Count 44 K/mm3 (150-450)
[2021-12-10 06:24] LABS: International Normalized Ratio 1.5; Prothrombin Time (Protime)PT. 17.7 SECONDS (11.7-14.9)
[2021-12-10 06:37] LABS: ALB/GLOB Ratio 0.8 RATIO (0.9-2.4); AST(SGOT) 38 U/L (15-37); Alanine Aminotransfer ALT/SGPT 32 U/L (16-61); Albumin, Serum 2.2 g/dL (3.2-5.0); Alkaline Phosphatase 98 U/L (45-117); Anion Gap 8 (5-15); BUN 18 mg/dL (7-18); BUN/Creat Ratio 12.1 RATIO (10-20); Calcium,Total 8.1 mg/dL (8.5-10.1); Chloride 105 mmol/L (98-107); Creatinine, Serum 1.49 mg/dL (0.70-1.30); EST Glomerular Filtration Rate 49 mL/min (>60); Est Glom Filt Rate - Afr Amer 60 mL/min (>60); Estimated Creatinine Clearance 47.63 ml/min; Globulin 2.9 g/dL (2.2-4.2); Glucose 156 mg/dL (74-106); Potassium 2.9 mmol/L (3.5-5.1); Protein, Total 5.1 g/dL (6.4-8.2); Sodium Level 137 mmol/L (136-145)
--- NOTE | 2021-12-10 06:49 | EKG12_ITS ---
Test Reason : rythm change Blood Pressure : / mmHG Vent. Rate : 133 BPM Atrial Rate : 000 BPM P-R Int : 000 ms QRS Dur : 108 ms QT Int : 254 ms P-R-T Axes : 000 004 150 degrees QTc Int : 378 ms Atrial fibrillation with rapid ventricular response Septal infarct , age undetermined ST & T wave abnormality, consider lateral ischemia Abnormal ECG Confirmed by SRAVANI STACK, GINA ([id number]), acquisitions editor EV ZARCO ([id number]) on 12/13/2021 1:02:33 PM Referred By: Confirmed By:GINA LASSITER MD
[2021-12-10 07:07] LABS: Differential Comment SCANNED; Hypochromasia 2+; Platelet Estimate MKD DEC (ADEQ)
--- NOTE | 2021-12-10 07:25 | PCM.PN.HOSP ---
Subjective Subjective Colonoscopy canceled as patient went into atrial relation with RVR today. Patient feels fine at present. Objective Data Objective Data Vital Signs: Vital Signs Temp Pulse Resp BP Pulse Ox O2 Del Method 36.8 C 90 18 141/80 H 100 Room Air 12/10/21 02:36 12/10/21 02:59 12/10/21 02:36 12/10/21 02:36 12/10/21 02:36 12/10/21 02:36 Oxygen Delivery Method [2] Room Air Oxygen Delivery Method [1 ( Room Air Initial Baseline)] Oxygen Delivery Method Room Air Weight: 92.2 kg Body Mass Index (BMI) 29.1 Intake & Output: Intake and Output for Last 24 Hours 12/08/21 12/09/21 12/10/21 23:59 23:59 23:59 Intake Total 1630 / 1630 1100 / 1100 Output Total 8250 / 8250 251 / 251 Balance -6620 / -6620 849 / 849 Lab / Micro Data Result Diagrams: 12/10/21 06:03 12/10/21 09:45 Labs: Laboratory Results - last 24 hr 12/07/21 22:40: Crossmatch See Detail 12/08/21 13:35: Fl Pathologist Comment Reviewed 12/09/21 10:50: POC Glucose 98 12/10/21 06:03: WBC 4.0 L, RBC 3.52 L, Hgb 8.4 L, Hct 26.3 L, MCV 74.7 L, MCH 23.9 L, MCHC 31.9 L, RDW Std Deviation 45.0 H, RDW Coeff of Maria R 16.9 H, Plt Count 44 L*, MPV TNP, Immature Gran % (Auto) 0.200, Neut % (Auto) 88.6 H, Lymph % (Auto) 6.0 L, [place] % (Auto) 5.2, Eos % (Auto) 0.0, Baso % (Auto) 0.0, Absolute Neuts (auto) 3.6, Absolute Lymphs (auto) 0.24 L, Nucleated RBC % 0, Differential Comment SCANNED, Diff Path Review August rosita, Platelet Estimate MKD DEC, Hypochromasia 2+ 12/10/21 06:03: PT 17.7 H, INR 1.5 12/10/21 06:03: Sodium 137, Potassium 2.9 L, Chloride 105, Carbon Dioxide 24.0, Anion Gap 8, BUN 18, Creatinine 1.49 H, Estim Creat Clear Calc 47.63, Est GFR (MDRD) Af Amer 60, Est GFR (MDRD) Non-Af 49 L, BUN/Creatinine Ratio 12.1, Glucose 156 H, Calcium 8.1 L, Total Bilirubin 2.70 H, AST 38 H, ALT 32, Alkaline Phosphatase 98, Total Protein 5.1 L, Albumin 2.2 L, Globulin 2.9, Albumin/Globulin Ratio 0.8 L Micro: Microbiology 12/08/21 13:35 Fluid - Paracentesis (Abd) Gram Stain - Final 12/08/21 13:35 Fluid - Paracentesis (Abd) Body Fluid Culture - Preliminary No growth-Final to follow 12/07/21 22:15 Urine, Clean Catch Urine Culture - Final Culture exhibits no growth. 12/07/21 22:46 Stool Stool Occult Blood (SASHA) - Final 12/07/21 20:55 Nasal Secretion SARS-CoV-2 & FLU Antigen (Rapid) - Final Physical Exam Const alert and no apparent distress Resp normal respiratory effort, no retractions, no use of accessory muscles and clear to auscultation bilaterally Cardio regular rate, regular rhythm, S1 normal heart sound and S2 normal heart sound GI normal to inspection, nondistended, normoactive bowel sounds and soft to palpation Assessment & Plan Assessment/Plan (1) Fever: QUALIFIERS: Fever type: unspecified Qualified Code(s): R50.9 - Fever, unspecified PLAN: Transient since resolved. Initial concern was for spontaneous bacterial peritonitis Fluid white blood cells are 61 therefore not suggesting spontaneous bacterial peritonitis. I had ordered Pipracil/tazobactam but given that that looks unremarkable I will discontinue that and will observe. Repeat fever again last night. Testing so far shows negative COVID, white blood cells were low on the paracentesis so doubtful SBP, urine culture negative, blood cultures pending. (2) Hepatic encephalopathy: PLAN: Resolved Metabolic/toxic encephalopathy secondary to ammonia but also due to the patient's underlying fever. Patient appears to be back to his baseline. (3) Anemia: PLAN: Acute blood loss anemia Patient's hemoglobin went from 8.8 on October 31-5.6 yesterday. Patient was transfused 2 units of packed red blood cells Hemoglobin is currently 7.3. Hold off any additional transfusions at this time. 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 Had a very long conversation with the patient and his and I recommended gastroenterology evaluation for endoscopy. Patient was initially hesitant as he does have endoscopy planned for February at [facility]. Patient is in agreement. Plan for EGD today Hemoglobin 6.9, will transfuse 1 unit packed red blood cells. EGD performed 12/09: Normal esophagus, erythematous mucosa in the antrum, GAVE with bleeding treated with argon plasma coagulation. Plan for colonoscopy on (4) Pancytopenia: PLAN: Chronic Pancytopenia Hemoglobin of 5.6. Emergent department doctor reports brown stools on rectal examination. Occult stools ordered the ED, follow. 2 units of packed red blood cells ordered. With potential for paracentesis 1 unit of platelets ordered at emergency department. Iron studies; reticulocyte; vitamin B12 and folic acid ordered. Iron studies point towards iron deficiency anemia (5) Ascites: PLAN: Secondary to cirrhosis Patient had 3950 cc of fluid removed today. No need for abdomen at this time. Changed his diuretics to furosemide and spironolactone (6) Hypokalemia: PLAN: Magnesium 2.2 12/09 Replace (7) Liver cirrhosis: PLAN: Complicates care and recovery Bilirubin stable, but elevated. Avoid hepatotoxins (8) Atrial fibrillation with RVR: PLAN: New diagnosis 12/10 [id number] Score is 2. Not a candidate for anticoagulation given thrombocytopenia as well as GI bleed. Did receive 10 mg of IV diltiazem and then patient has been started on 50 mg twice daily of metoprolol. May need to initiate diltiazem drip. Check echocardiogram PLAN: Plan HTN Stable. CKD Stage 3b Stable Trend BMP DVT prophylaxis: Not a candidate for chemical thromboprophylaxis secondary to thrombocytopenia., SCD ordered. Discussed with patient's at bedside Charges/Coding Visit Charges Inpatient E&M: 26295 Subs Hosp L2
--- NOTE | 2021-12-10 08:50 | ECHOD_ITS ---
Reason For Study: A. fib Procedure This was a 2D Doppler, Color Flow transthoracic echocardiogram. Exam performed portable in patient room. Left Ventricle Moderate concentric left ventricular hypertrophy. The estimated ejection fraction is 60-65 %. Right Ventricle Normal right ventricle. Normal systolic function. Atria The left atrium is moderately enlarged. Normal right atrium. Mitral Valve There is moderate mitral annular calcification. Mild (1+) mitral valve insufficiency. Tricuspid Valve Normal tricuspid valve. Trivial tricuspid valve insufficiency. Aortic Valve Normal function of AVR. Trivial aortic valve insufficiency. Pulmonic Valve The pulmonic valve is not well visualized. Great Vessels Normal aortic root. Pericardium/Pleural No pericardial effusion. MMode/2D Measurements & Calculations LVIDd: 4.1 cm IVSd: 1.6 cm LVOT diam: 2.1 cm LVIDs: 1.9 cm LVPWd: 1.4 cm LVOT area: 3.5 cm2 RVDd: 3.9 cm FS: 52.3 % Ao root diam: 3.8 cm LAV(MOD-bp): 83.1 ml LVAd ap4: 33.2 cm2 LAV(MOD-bp) Indexed: 39.6 ml/m2 LVLd ap4: 9.0 cm LAV(MOD-sp2): 96.9 ml EDV(MOD-sp4): 99.8 ml LAV(MOD-sp4): 68.8 ml EDV(sp4-el): 103.7 ml LVAs ap4: 15.6 cm2 LVLs ap4: 7.7 cm ESV(MOD-sp4): 28.6 ml ESV(sp4-el): 26.6 ml EF(MOD-sp4): 71.3 % EF(sp4-el): 74.3 % SV(MOD-sp4): 71.2 ml SV(sp4-el): 77.0 ml LA A4 area: 23.7 cm2 LA dimension(2D): 5.1 cm RA A4 area: 17.9 cm2 Time Measurements MV dec time: 0.34 sec Doppler Measurements & Calculations MV E max dary: 146.3 cm/sec MV V2 max: 149.2 cm/sec MV P1/2t max dary: 143.9 cm/sec MV A max dary: 134.4 cm/sec MV max P.9 mmHg MV P1/2t: 94.6 msec MV E/A: 1.1 MV V2 mean: 88.8 cm/sec MV dec slope: 445.3 cm/sec2 MV mean P.7 mmHg MVA(P1/2t): 2.3 cm2 MV V2 VTI: 30.5 cm MVA(VTI): 2.8 cm2 Ao V2 max: 262.0 cm/sec LV V1 max: 126.5 cm/sec SV(LVOT): 86.1 ml Ao max P.8 mmHg LV V1 max P.4 mmHg Ao V2 mean: 185.5 cm/sec LV V1 mean P.9 mmHg Ao mean P.8 mmHg LV V1 mean: 94.6 cm/sec Ao V2 VTI: 50.0 cm LV V1 VTI: 24.4 cm ANGELA(I,D): 1.7 cm2 ANGELA(V,D): 1.7 cm2 PA V2 max: 100.8 cm/sec TR max dary: 238.0 cm/sec PA V2 mean: 70.8 cm/sec TR max P.8 mmHg ECHO/Echo Complete Interpretation Summary The estimated ejection fraction is 60-65 %. Normal function of AVR Ordering Physician: Sb Luna Referring Physician: MD Jose Alberto Josse Performed By: Keshia Hansen RDCS
[2021-12-10] MEDS: Potassium Chloride Oral Tablet 20 MEQ PO ×2 (09:21→09:23)
[2021-12-10] MEDS: Multivitamins,Therapeutic Tablet 1 TABLET PO (09:21)
[2021-12-10] MEDS: Lactulose 20 GM/30 ML UDC PO ×2 (09:22→21:49)
[2021-12-10] MEDS: Spironolactone 50 MG Tablet PO (09:22)
[2021-12-10] MEDS: 0.9% Saline Lock 10 ML Syringe IV ×2 (09:23→21:48)
[2021-12-10] MEDS: dilTIAZem 25 MG/5 ML Vial 10 MG IV BOLUS (09:23)
[2021-12-10 10:06] LABS: Anion Gap 9 (5-15); BUN 18 mg/dL (7-18); BUN/Creat Ratio 12.2 RATIO (10-20); Calcium,Total 7.9 mg/dL (8.5-10.1); Chloride 107 mmol/L (98-107); Creatinine, Serum 1.48 mg/dL (0.70-1.30); EST Glomerular Filtration Rate 50 mL/min (>60); Est Glom Filt Rate - Afr Amer 60 mL/min (>60); Estimated Creatinine Clearance 47.95 ml/min; Glucose 130 mg/dL (74-106); Potassium 2.8 mmol/L (3.5-5.1); Sodium Level 139 mmol/L (136-145)
--- NOTE | 2021-12-10 10:46 | PN_ITS ---
Subjective Subjective Patient was scheduled to get colonoscopy today however it had to be canceled due to new onset A. fib and a potassium of 2.9. I rechecked it and it was 2.8. He denies any chest pain or shortness of breath. Objective Data Objective Data Vital Signs: Vital Signs Temp Pulse Resp BP Pulse Ox O2 Del Method 98.1 F 116 H 18 101/75 100 Room Air 12/10/21 09:13 12/10/21 09:13 12/10/21 09:13 12/10/21 09:13 12/10/21 09:13 12/10/21 09:13 Oxygen Delivery Method [2] Room Air Oxygen Delivery Method [1 ( Room Air Initial Baseline)] Oxygen Delivery Method Room Air Weight: 203 lb 4.259 oz Body Mass Index (BMI) 29.1 Intake & Output: Intake and Output for Last 24 Hours 12/08/21 12/09/21 12/10/21 23:59 23:59 23:59 Intake Total 1630 / 1630 1100 / 1100 Output Total 8250 / 8250 251 / 251 Balance -6620 / -6620 849 / 849 Lab / Micro Data Result Diagrams: 12/10/21 06:03 12/10/21 09:45 Labs: Laboratory Results - last 24 hr 12/07/21 22:40: Crossmatch See Detail 12/08/21 13:35: Fl Pathologist Comment Reviewed 12/09/21 10:50: POC Glucose 98 12/10/21 06:03: WBC 4.0 L, RBC 3.52 L, Hgb 8.4 L, Hct 26.3 L, MCV 74.7 L, MCH 23.9 L, MCHC 31.9 L, RDW Std Deviation 45.0 H, RDW Coeff of Maria R 16.9 H, Plt Count 44 L*, MPV TNP, Immature Gran % (Auto) 0.200, Neut % (Auto) 88.6 H, Lymph % (Auto) 6.0 L, [place] % (Auto) 5.2, Eos % (Auto) 0.0, Baso % (Auto) 0.0, Absolute Neuts (auto) 3.6, Absolute Lymphs (auto) 0.24 L, Nucleated RBC % 0, Differential Comment SCANNED, Diff Path Review August rosita, Platelet Estimate MKD DEC, Hypochromasia 2+ 12/10/21 06:03: PT 17.7 H, INR 1.5 12/10/21 06:03: Sodium 137, Potassium 2.9 L, Chloride 105, Carbon Dioxide 24.0, Anion Gap 8, BUN 18, Creatinine 1.49 H, Estim Creat Clear Calc 47.63, Est GFR (MDRD) Af Amer 60, Est GFR (MDRD) Non-Af 49 L, BUN/Creatinine Ratio 12.1, Glucose 156 H, Calcium 8.1 L, Total Bilirubin 2.70 H, AST 38 H, ALT 32, Alkaline Phosphatase 98, Total Protein 5.1 L, Albumin 2.2 L, Globulin 2.9, Albumin/Globulin Ratio 0.8 L 12/10/21 09:45: Sodium 139, Potassium 2.8 L, Chloride 107, Carbon Dioxide 23.0, Anion Gap 9, BUN 18, Creatinine 1.48 H, Estim Creat Clear Calc 47.95, Est GFR (MDRD) Af Amer 60, Est GFR (MDRD) Non-Af 50 L, BUN/Creatinine Ratio 12.2, Glucose 130 H, Calcium 7.9 L Micro: Microbiology 12/07/21 21:10 Blood Culture (Wb) - Left Hand Blood Culture - Preliminary No growth in 48 hours. 12/07/21 21:30 Blood Culture (Wb) - Anticubital Right Blood Culture - Preliminary No growth in 48 hours. 12/08/21 13:35 Fluid - Paracentesis (Abd) Gram Stain - Final 12/08/21 13:35 Fluid - Paracentesis (Abd) Body Fluid Culture - Preliminary No growth-Final to follow 12/07/21 22:15 Urine, Clean Catch Urine Culture - Final Culture exhibits no growth. 12/07/21 22:46 Stool Stool Occult Blood (SASHA) - Final 12/07/21 20:55 Nasal Secretion SARS-CoV-2 & FLU Antigen (Rapid) - Final Physical Exam Const alert and no apparent distress Constitutional Narrative: Up at the side of bed. Resp normal respiratory effort, no retractions, no use of accessory muscles and clear to auscultation bilaterally Cardio Rhythm: abnormal rhythm GI normal to inspection, nondistended, normoactive bowel sounds, soft to palpation, non-tender and non-distended Psych affect normal Assessment & Plan Assessment/Plan (1) Ascites: PLAN: Status post paracentesis with possible SBP on antibiotic therapy. His weight has been stable. Recommend Lasix 40 mg p.o. twice daily and spironolactone 50 mg p.o. twice daily. (2) Pancytopenia: PLAN: Pancytopenia likely secondary to cirrhosis. His platelet count seems to be stable. Trend CBC and transfuse platelets if count is less than 20,000. 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 (4) Anemia: PLAN: Status posttransfusion. He is okay for clear liquids today and possible colonoscopy tomorrow. Charges/Coding Visit Charges Inpatient E&M: 70650 Subs Hosp L3
[2021-12-10] MEDS: Metoprolol Tartrate 50 MG Tablet PO (11:01)
[2021-12-10] MEDS: Potassium Chloride 10mEq/100mL 10 MEQ/100 ML IV.SOLN. 100 MEQ IV BOLUS ×4 (11:01→16:00)
--- NOTE | 2021-12-10 18:24 | NURSING ---
All documentation and medication administration completed by Barbie Esposito RN done under the supervision of this RN.
[2021-12-11] VITALS (7 sets, daily range): BP systolic 106–130; BP diastolic 65–79; PULSE 56–73; RESP 18; TEMP 36.4–37.1; O2SAT 97–100
[2021-12-11 06:54] LABS: Absolute Lymphocyte Count 0.68 X10^3/uL (0.83-4.51); Basophil# 0.01 X10^3/uL; Basophil% 0.2 % (0-1); Eosinophil# 0.06 X10^3/uL; Eosinophils% 1.1 % (0-5); Hematocrit 26.3 % (40-54); Hemoglobin 8.3 g/dL (13.0-16.5); Lymphocyte # 0.68 X10^3/ul (0.83-4.51); Mean Corp Hgb Conc 31.6 g/dL (32-36); Mean Corpuscular Hgb 23.6 pg (27.0-32.0); Mean Corpuscular Volume 74.7 fL (80-94); Monocyte# 0.46 X10^3/uL; Monocyte% 8.8 % (0-10); NRBC Flagged by Analyzer 0 % (0-5); Neutrophil # 4.01 X10^3/uL (2.7-7.7); Neutrophil % 76.5 % (47-70); POSITIVE COUNT YES; Platelet Count 44 K/mm3 (150-450); RBC Distribution Width CV 17.6 % (11.6-14.6); Red Blood Count 3.52 M/mm3 (4.6-6.2); White Blood Count 5.2 K/mm3 (4.4-11.0)
[2021-12-11 07:11] LABS: Differential Indicated SCAN CRITERIA MET
[2021-12-11 07:15] LABS: Anion Gap 7 (5-15); BUN 18 mg/dL (7-18); BUN/Creat Ratio 14.5 RATIO (10-20); Calcium,Total 7.6 mg/dL (8.5-10.1); Chloride 108 mmol/L (98-107); Creatinine, Serum 1.24 mg/dL (0.70-1.30); EST Glomerular Filtration Rate 61 mL/min (>60); Est Glom Filt Rate - Afr Amer 74 mL/min (>60); Estimated Creatinine Clearance 57.24 ml/min; Glucose 93 mg/dL (74-106); Potassium 3.5 mmol/L (3.5-5.1); Sodium Level 139 mmol/L (136-145)
--- NOTE | 2021-12-11 07:35 | PN.HOSP_ITS ---
Subjective Subjective Feels well. No events. Objective Data Objective Data Vital Signs: Vital Signs Temp Pulse Resp BP Pulse Ox O2 Del Method 36.4 C L 65 18 109/77 97 Room Air 12/11/21 03:15 12/11/21 03:15 12/11/21 03:15 12/11/21 03:15 12/11/21 03:15 12/11/21 04:15 Oxygen Delivery Method [2] Room Air Oxygen Delivery Method [1 ( Room Air Initial Baseline)] Oxygen Delivery Method Room Air Weight: 92.2 kg Body Mass Index (BMI) 29.1 Intake & Output: Intake and Output for Last 24 Hours 12/09/21 12/10/21 12/11/21 23:59 23:59 23:59 Intake Total 1100 / 1100 1220 / 1220 Output Total 251 / 251 200 / 200 Balance 849 / 849 1020 / 1020 Lab / Micro Data Result Diagrams: 12/11/21 05:33 12/11/21 05:33 Labs: Laboratory Results - last 24 hr 12/10/21 09:45: Sodium 139, Potassium 2.8 L, Chloride 107, Carbon Dioxide 23.0, Anion Gap 9, BUN 18, Creatinine 1.48 H, Estim Creat Clear Calc 47.95, Est GFR (MDRD) Af Amer 60, Est GFR (MDRD) Non-Af 50 L, BUN/Creatinine Ratio 12.2, Glucose 130 H, Calcium 7.9 L 12/11/21 05:33: WBC 5.2, RBC 3.52 L, Hgb 8.3 L, Hct 26.3 L, MCV 74.7 L, MCH 23.6 L, MCHC 31.6 L, RDW Std Deviation 47.0 H, RDW Coeff of Maria R 17.6 H, Plt Count 44 L*, Immature Gran % (Auto) 0.400, Neut % (Auto) 76.5 H, Lymph % (Auto) 13.0 L, [place] % (Auto) 8.8, Eos % (Auto) 1.1, Baso % (Auto) 0.2, Absolute Neuts (auto) 4.0, Absolute Lymphs (auto) 0.68 L, Nucleated RBC % 0 12/11/21 05:33: Sodium 139, Potassium 3.5, Chloride 108 H, Carbon Dioxide 24.0, Anion Gap 7, BUN 18, Creatinine 1.24, Estim Creat Clear Calc 57.24, Est GFR (MDRD) Af Amer 74, Est GFR (MDRD) Non-Af 61, BUN/Creatinine Ratio 14.5, Glucose 93, Calcium 7.6 L Micro: Microbiology 12/08/21 13:35 Fluid - Paracentesis (Abd) Gram Stain - Final 12/08/21 13:35 Fluid - Paracentesis (Abd) Body Fluid Culture - Preliminary No growth-Final to follow 12/08/21 13:35 Fluid - Paracentesis (Abd) Anaerobic Culture - Preliminary No growth in 48 hours. 12/07/21 21:10 Blood Culture (Wb) - Left Hand Blood Culture - Preliminary No growth in 48 hours. 12/07/21 21:30 Blood Culture (Wb) - Anticubital Right Blood Culture - Preliminary No growth in 48 hours. 12/07/21 22:15 Urine, Clean Catch Urine Culture - Final Culture exhibits no growth. 12/07/21 22:46 Stool Stool Occult Blood (SASHA) - Final 12/07/21 20:55 Nasal Secretion SARS-CoV-2 & FLU Antigen (Rapid) - Final Radiography Diagnostic Testing: Radiology Impression Echocardiogram 12/10/21 08:50 Interpretation Summary The estimated ejection fraction is 60-65 %. Normal function of AVR Ordering Physician: Sb Luna Referring Physician: MD Jose Alberto Josse Performed By: Keshia Hansen RDCS Physical Exam Const alert and no apparent distress Resp normal respiratory effort, no retractions, no use of accessory muscles and clear to auscultation bilaterally Cardio regular rate, regular rhythm, S1 normal heart sound and S2 normal heart sound GI GI Narrative: Slight distention. Nontender. Normal bowel sounds Neuro oriented x3 Sensorium / Orientation: awake and alert Psych affect normal Assessment & Plan Assessment/Plan (1) Fever: QUALIFIERS: Fever type: unspecified Qualified Code(s): R50.9 - Fever, unspecified PLAN: Transient since resolved. Initial concern was for spontaneous bacterial peritonitis Fluid white blood cells are 61 therefore not suggesting spontaneous bacterial peritonitis (SBP ruled out). Testing so far shows negative COVID, white blood cells were low on the paracentesis so doubtful SBP, urine culture negative, blood cultures pending. (2) Hepatic encephalopathy: PLAN: Resolved Metabolic/toxic encephalopathy secondary to ammonia but also due to the patient's underlying fever. Patient appears to be back to his baseline. (3) Anemia: QUALIFIERS: Anemia type: unspecified type Qualified Code(s): D64. 9 - Anemia, unspecified PLAN: Acute blood loss anemia Patient's hemoglobin went from 8.8 on October 31-5.6 yesterday. Patient was transfused 2 units of packed red blood cells Hemoglobin is currently 7.3. Hold off any additional transfusions at this time. 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 Had a very long conversation with the patient and his and I recommended gastroenterology evaluation for endoscopy. Patient was initially hesitant as he does have end oscopy planned for February at [facility]. Patient is in agreement. Plan for EGD today Hemoglobin 6.9, will transfuse 1 unit packed red blood cells. EGD performed 12/09: Normal esophagus, erythematous mucosa in the antrum, GAVE with bleeding treated with argon plasma coagulation. Plan for colonoscopy on (4) Pancytopenia: PLAN: Chronic Pancytopenia Hemoglobin of 5.6. Emergent department doctor reports brown stools on rectal examination. Occult stools ordered the ED, follow. 2 units of packed red blood cells ordered. With potential for paracentesis 1 unit of platelets ordered at emergency department. Iron studies; reticulocyte; vitamin B12 and folic acid ordered. Iron studies point towards iron deficiency anemia (5) Ascites: PLAN: Secondary to cirrhosis Patient had 3950 cc of fluid removed today. No need for abdomen at this time. Changed his diuretics to furosemide and spironolactone (6) Hypokalemia: PLAN: Magnesium 2.2 12/09 Replace (7) Liver cirrhosis: PLAN: Complicates care and recovery Bilirubin stable, but elevated. Avoid hepatotoxins (8) Atrial fibrillation with RVR: PLAN: New diagnosis 8/20 [id number] Score is 2. Not a candidate for anticoagulation given thrombocytopenia as well as GI bleed. Did receive 10 mg of IV diltiazem and then patient has been started on 50 mg twice daily of metoprolol. Stable 2d echo EF 60-65% Continue with metoprolol 50 mg twice daily. Follow-up cardiology as outpatient. Not a candidate for anticoagulation given his cirrhosis, GI bleed and thrombocytopenia PLAN: Plan HTN Stable. CKD Stage 3b Stable Trend BMP DVT prophylaxis: Not a candidate for chemical thromboprophylaxis secondary to thrombocytopenia., SCD ordered. Discussed with patient's at bedside Disposition: To be determined. Await results of the colonoscopy. Charges/Coding Visit Charges Inpatient E&M: 66972 Subs Hosp L2
[2021-12-11 08:11] LABS: Anisocytosis 1+; Microcytosis 1+; Platelet Estimate MKD DEC (ADEQ)
[2021-12-11] MEDS: Potassium Chloride Oral Tablet 20 MEQ PO (08:14)
[2021-12-11] MEDS: Multivitamins,Therapeutic Tablet 1 TABLET PO (08:14)
[2021-12-11] MEDS: Lactulose 20 GM/30 ML UDC PO (10:40)
[2021-12-11] MEDS: Spironolactone 50 MG Tablet PO (10:40)
[2021-12-11] MEDS: Metoprolol Tartrate 50 MG Tablet PO (10:41)
[2021-12-11] MEDS: Finasteride 5 MG Tablet PO (10:41)
--- NOTE | 2021-12-11 14:48 | DCINST_ITS ---
Discharge Instructions Diet Discharge Diet: 1999 Calorie Control Diet Activity Discharge Activity: Return to Normal Activity Dressing / Incision Call your doctor if you observe: Fever of 101 or Higher and - (blood in stool. dark tarry stools. ) Follow Up Care Please Follow Up With: [facility] gastroenterology When: as soon as your are able. Test Results: Test results from this visit will be discussed in further detail at your follow- up appointment, if applicable. Discharge Plan Admission Admit Date/Time: 12/08/21 11:52 Primary Reason for Your Visit: acute blood loss anemia Attending Provider: Sb Luna Primary Care Provider: Josse Abrams Consulting Providers: Dallas Giang Instructions Patient Instructions: SAMIRA RN Paracentesis Dc Discharge Orders/Prescriptions Prescriptions: New furosemide 40 mg Tablet 40 mg PO DAILY Qty: 30 0RF metoprolol tartrate 50 mg Tablet 50 mg PO BID Qty: 60 0RF lactulose 20 gram/30 mL Solution 20 g PO BID Qty: 1200 0RF spironolactone 50 mg Tablet 50 mg PO DAILY Qty: 30 0RF pantoprazole [Protonix] 40 mg tablet,delayed release (DR/EC) 40 mg PO BID Qty: 60 0RF Continued finasteride 5 MG tablet 5 mg PO QODAY multivitamin with folic acid [Thera] 1 TABLET tablet 1 tab PO DAILY tamsulosin 0.4 mg capsule 0.4 mg PO Discontinued milk thistle 500 MG capsule 2,000 mg PO BID omeprazole 20 MG capsule 20 mg PO DAILY potassium chloride 10 MEQ tablet 20 meq PO DAILY torsemide 20 mg Tablet 20 mg PO DAILY triamterene 100 MG capsule 100 mg PO DAILY Referrals / Follow Up: [facility] [Provider Group] - Within 1 Month Josse Abrams MD [Primary Care Provider] - Within 2 Weeks Disposition Disposition (needs filled in before D/C Order can be placed): Home, Self Care
--- NOTE | 2021-12-11 14:55 | DS.PCM_ITS ---
Providers Date of Admission: 12/08/21 Primary Care Physician: Dr. Josse Abrams MD Consultations 12/08/21 11:07 Consult: Gastroenterology Routine Consulting Provider: [facility] Reason for Consult: anemia EMERGENT Consult: No MD Notified: Yes Date Notified: 12/08/21 Time Notified: 11:07 Method of Notification: Verbal Reason For Visit: FEVER, PANCYTOPENIA Diagnosis Discharge Diagnosis (1) Fever: Status: Acute Code(s): R50.9 - Fever, unspecified Qualifiers: Fever type: unspecified Qualified Code(s): R50.9 - Fever, unspecified Plan: Transient since resolved. Initial concern was for spontaneous bacterial peritonitis Fluid white blood cells are 61 therefore not suggesting spontaneous bacterial peritonitis (SBP ruled out). Testing so far shows negative COVID, white blood cells were low on the paracentesis so doubtful SBP, urine culture negative, blood cultures pending. (2) Hepatic encephalopathy: Status: Acute Code(s): K72.90 - Hepatic failure, unspecified without coma Plan: Resolved Metabolic/toxic encephalopathy secondary to ammonia but also due to the patient 's underlying fever. Patient appears to be back to his baseline. (3) Anemia: Status: Acute Code(s): D64.9 - Anemia, unspecified Qualifiers: Anemia type: unspecified type Qualified Code(s): D64.9 - Anemia, unspecified Plan: Acute blood loss anemia Patient's hemoglobin went from 8.8 on October 31-5.6 yesterday. Patient was transfused 2 units of packed red blood cells Hemoglobin is currently 7.3. Hold off any additional transfusions at this time. 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 Had a very long conversation with the patient and his and I recommended gastroenterology evaluation for endoscopy. Patient was initially hesitant as he does have endoscopy planned for February at [facility]. Patient is in agreement. Plan for EGD today Hemoglobin 6.9, will transfuse 1 unit packed red blood cells. EGD performed 12/09: Normal esophagus, erythematous mucosa in the antrum, GAVE with bleeding treated with argon plasma coagulation. Colonoscopy unable to be performed on the . Discussed with Dr. Storm, stated that the patient could have it done on the . Patient stated that he has not eaten in the past 40+ hours. His initial colonoscopy was canceled on the due to atrial fibrillation RVR. And they were unable to perform an on the due to a busy operating room on a weekend day. Dr. Storm said it is fine for that to be done as outpatient. Patient said that he is going to fo llow-up with [facility] gastroenterology for the colonoscopy. Patient was given the option to stay another day to have it done but he declines at this time. (4) Pancytopenia: Status: Acute Code(s): D61.818 - Other pancytopenia Plan: Chronic Pancytopenia Hemoglobin of 5.6. Emergent department doctor reports brown stools on rectal examination. Occult stools ordered the ED, follow. 2 units of packed red blood cells ordered. With potential for paracentesis 1 unit of platelets ordered at emergency department. Iron studies; reticulocyte; vitamin B12 and folic acid ordered. Iron studies point towards iron deficiency anemia (5) Ascites: Status: Acute Code(s): R18.8 - Other ascites Plan: Secondary to cirrhosis Patient had 3950 cc of fluid removed today. No need for abdomen at this time. Changed his diuretics to furosemide and spironolactone (6) Hypokalemia: Status: Acute Code(s): E87.6 - Hypokalemia Plan: Magnesium 2.2 12/09 Replace (7) Liver cirrhosis: Status: Chronic Code(s): K74.60 - Unspecified cirrhosis of liver Plan: Complicates care and recovery Bilirubin stable, but elevated. Avoid hepatotoxins (8) Atrial fibrillation with RVR: Status: Acute Code(s): I48.91 - Unspecified atrial fibrillation Plan: New diagnosis 12/10 [id number] Score is 2. Not a candidate for anticoagulation given thrombocytopenia as well as GI bleed. Did receive 10 mg of IV diltiazem and then patient has been started on 50 mg twice daily of metoprolol. Stable 2d echo EF 60-65% Continue with metoprolol 50 mg twice daily. Follow-up cardiology as outpatient. Not a candidate for anticoagulation given his cirrhosis, GI bleed and th rombocytopenia Plan HTN Stable. CKD Stage 3b Stable Trend BMP DVT prophylaxis: Not a candidate for chemical thromboprophylaxis secondary to thrombocytopenia., SCD ordered. Discussed with patient's at bedside Disposition: To home. Medications at Discharge Home Medications finasteride 5 mg tablet 5 mg PO QODAY Check with primary doctor 06/18/18 multivitamin with folic acid 400 mcg tablet (Thera) 1 tab PO DAILY Check with primary doctor 06/18/18 tamsulosin 0.4 mg capsule 0.4 mg PO 12/08/21 furosemide 40 mg tablet 40 mg PO DAILY #30 tabs 12/11/21 lactulose 20 gram/30 mL oral solution 20 g (30 mL) PO BID #1,200 mL 12/11/21 metoprolol tartrate 50 mg tablet 50 mg PO BID #60 tabs 12/11/21 pantoprazole 40 mg tablet,delayed release (Protonix) 40 mg PO BID #60 tabs 11/22 05/14 spironolactone 50 mg tablet 50 mg PO DAILY #30 tabs 12/11/21 Hospital Course Operations None Procedures EGD Summary of Care Provided Minutes Spent on Discharge: 35 Weight / BMI Weight Weight: 92.2 kg Body Mass Index (BMI) 29.1 ABG / Lab / Microbiology Data Result Diagrams: 12/11/21 05:33 12/11/21 05:33 Laboratory: Laboratory Results - last 24 hr 12/11/21 05:33: WBC 5.2, RBC 3.52 L, Hgb 8.3 L, Hct 26.3 L, MCV 74.7 L, MCH 23.6 L, MCHC 31.6 L, RDW Std Deviation 47.0 H, RDW Coeff of Maria R 17.6 H, Plt Count 44 L*, Immature Gran % (Auto) 0.400, Neut % (Auto) 76.5 H, Lymph % (Auto) 13.0 L, [place] % (Auto) 8.8, Eos % (Auto) 1.1, Baso % (Auto) 0.2, Absolute Neuts (auto) 4.0, Absolute Lymphs (auto) 0.68 L, Nucleated RBC % 0, Diff Path Review May foll, Platelet Estimate MKD DEC, Anisocytosis 1+, Microcytosis 1+ 12/11/21 05:33: Sodium 139, Potassium 3.5, Chloride 108 H, Carbon Dioxide 24.0, Anion Gap 7, BUN 18, Creatinine 1.24, Estim Creat Clear Calc 57.24, Est GFR (MDRD) Af Amer 74, Est GFR (MDRD) Non-Af 61, BUN/Creatinine Ratio 14.5, Glucose 93, Calcium 7.6 L Microbiology: Microbiology 12/08/21 13:35 Fluid - Paracentesis (Abd) Gram Stain - Final 12/08/21 13:35 Fluid - Paracentesis (Abd) Body Fluid Culture - Preliminary No growth-Final to follow 12/08/21 13:35 Fluid - Paracentesis (Abd) Anaerobic Culture - Preliminary No growth in 48 hours. 12/07/21 21:10 Blood Culture (Wb) - Left Hand Blood Culture - Preliminary No growth in 48 hours. 12/07/21 21:30 Blood Culture (Wb) - Anticubital Right Blood Culture - Preliminary No growth in 48 hours. 12/07/21 22:15 Urine, Clean Catch Urine Culture - Final Culture exhibits no growth. 12/07/21 22:46 Stool Stool Occult Blood (SASHA) - Final 12/07/21 20:55 Nasal Secretion SARS-CoV-2 & FLU Antigen (Rapid) - Final Radiography Diagnostic Testing: Radiology Impression Echocardiogram 12/10/21 08:50 Interpretation Summary The estimated ejection fraction is 60-65 %. Normal function of AVR Ordering Physician: Sb Luna Referring Physician: MD Josse Abrams Performed By: Keshia Hansen AMARILYS D/C Instructions Discharge Diet: 2000 Calorie Control Diet Call your doctor if you observe: Fever of 101 or Higher and - (blood in stool. dark tarry stools. ) Please Follow Up With: [facility] gastroenterology When: as soon as your are able. Meaningful Use Info Meaningful Use Diagnoses (Choose all that apply): None applicable Discharge Plan Admission Admit Date/Time: 12/08/21 11:52 Primary Reason for Your Visit: acute blood loss anemia Attending Provider: Sb Luna Primary Care Provider: Josse Abrams Consulting Providers: [place] Giang Instructions Patient Instructions: SAMIRA RN Paracentesis Dc Discharge Orders/Prescriptions Prescriptions: New furosemide 40 mg Tablet 40 mg PO DAILY Qty: 30 0RF metoprolol tartrate 50 mg Tablet 50 mg PO BID Qty: 60 0RF lactulose 20 gram/30 mL Solution 20 g PO BID Qty: 1200 0RF spironolactone 50 mg Tablet 50 mg PO DAILY Qty: 30 0RF pantoprazole [Protonix] 40 mg tablet,delayed release (DR/EC) 40 mg PO BID Qty: 60 0RF Continued finasteride 5 MG tablet 5 mg PO QODAY multivitamin with folic acid [Thera] 1 TABLET tablet 1 tab PO DAILY tamsulosin 0.4 mg capsule 0.4 mg PO Discontinued milk thistle 500 MG capsule 2,000 mg PO BID omeprazole 20 MG capsule 20 mg PO DAILY potassium chloride 10 MEQ tablet 20 meq PO DAILY torsemide 20 mg Tablet 20 mg PO DAILY triamterene 100 MG capsule 100 mg PO DAILY Referrals / Follow Up: [facility] [Provider Group] - Within 1 Month Josse Abrams MD [Primary Care Provider] - Within 2 Weeks Disposition Disposition (needs filled in before D/C Order can be placed): Home, Self Care Charges/Coding Visit Charges Inpatient E&M: 27153 Disch Hosp
--- NOTE | 2021-12-11 16:47 | NURSING ---
All documentation and medication administration completed by Barbie Esposito RN done under the supervision of this RN.
[2021-12-12 13:20] LABS: Pathologist Review Reviewed
[2021-12-12 13:21] LABS: Pathologist Review Reviewed
[2021-12-13 08:56] LABS: Pathologist Review Reviewed
[2021-12-13 09:04] LABS: Pathologist Review Reviewed
== END 2021-12-11 15:31 | disposition home or self-care (01) | DRG 441 ==
LOC: ED 22:36 → PCU 23:45
PROVIDERS: Anesthesiology; Internal Medicine Gastroenterology; Admitting Provider Hospitalist; Emergency Provider Emergency Medicine; PCP Family Medicine
PROC: 0DJ08ZZ Inspection of Upper Intestinal Tract, Via Natural or Artificial Opening Endoscopic (ICD-10-PCS; CPT 43235; principal; 2021-12-09 12:00)
PROC: 0DJD8ZZ Inspection of Lower Intestinal Tract, Via Natural or Artificial Opening Endoscopic (ICD-10-PCS; CPT 45378; principal; 2021-12-10 07:30)
DX: K72.90 Hepatic failure, unspecified without coma (principal); G92.8 Other toxic encephalopathy; D61.818 Other pancytopenia; R18.8 Other ascites; D62 Acute posthemorrhagic anemia; I48.91 Unspecified atrial fibrillation; N18.32 Chronic kidney disease, stage 3b; K74.60 Unspecified cirrhosis of liver; D50.9 Iron deficiency anemia, unspecified; E87.6 Hypokalemia; I12.9 Hypertensive chronic kidney disease with stage 1 through stage 4 chronic kidney disease, or unspecified chronic kidney disease; K31.819 Angiodysplasia of stomach and duodenum without bleeding; Z95.1 Presence of aortocoronary bypass graft
CPT/HCPCS: 36415; 49083; 71045; 80048; 80053; 81001; 82140; 82274; 82607; 82728; 82746; 82962; 83540; 83550; 83605; 83690; 83735; 84100; 85025; 85045; 85610; 85730; 86850; 86900; 86901; 86920; 86922; 86965; 87040; 87070; 87075; 87086; 87205; 87428; 88108; 88305; 88313; 89050; 93005; 93306; 99285; J7040; J7050; P9016; P9035; P9612; A4216; J2405

== ENCOUNTER 2022-09-05 16:18 | Emergency (ER) | payer MEDICARE, OTHER, SELFPAY | END 2022-09-05 16:43 | disposition left against medical advice (07) | LOC: ED 16:42 | PROVIDERS: PCP Family Medicine | DX: R79.9 Abnormal finding of blood chemistry, unspecified (principal) ==